=== PATIENT | female | born 1940 | race Caucasian/White ===

== ENCOUNTER 2018-10-04 09:54 | Emergency (ER) | payer OTHER, MEDICARE ==
[2018-10-04 10:05] VITALS: BMI 38.7
--- NOTE | 2018-10-04 10:06 | PDOC ---
History of Present Illness <[place] - Last Filed: 10/04/18 12:21> - General History Source: Patient - History of Present Illness Initial Comments: 10/04/18 10:26 The patient is a 78 year old female with a PMH of HTN, A.Fib, on Eliquis, PE, DVT, COPD, hypothyroidism, anxiety that presented to ED today complaining of back pain for a week. She states that she probably twisted her back or lifted something heavy and started experiencing right lower back pain with movement. According to her she lifted over 20 lbs turkey. Her pain is relieved by lying flat and minimally with Tylenol and heating pad. The patient also is complaining of wound on right timmons that s present for several weeks. She have vascular surgery in left leg by Dr Briscoe and was told to apply steroids on the skin. The patient states that her wound is very painful, stinging pain and she applies peroxide and dressing without noticing any improvement. She doesn't have numbness, weakness, fever, chills, dizziness. Timing/Duration: 1 week <Ruth Talbert - Last Filed: 10/04/18 12:39> - General Chief Complaint: Pain Stated Complaint: WOUND,BACK PAIN Time Seen by Provider: 10/04/18 10:05 Past History <[place] - Last Filed: 10/04/18 12:21> - Past Medical History Anemia: No Asthma: No Cancer: No Cardiac Disorders: Yes ("extra beats") CVA: No COPD: No CHF: No Dementia: No Diabetes: No GI Disorders: No Disorders: Yes (inc) HTN: Yes Hypercholesterolemia: Yes Liver Disease: No Seizures: No Thyroid Disease: No - Surgical History Cardiac Surgery: No (CAROTID ARTERY) Cholecystectomy: Yes Lung Surgery: No Orthopedic Surgery: Yes (may arthroscopy; foot sx) - Suicide/Smoking/Psychosocial Hx Smoking History: Never smoked Have you smoked in the past 12 months: No Hx Alcohol Use: No Drug/Substance Use Hx: No Substance Use Type: None Hx Substance Use Treatment: No <Ruth Talbert - Last Filed: 10/04/18 12:39> - Past Medical History Allergies/Adverse Reactions: Allergies Allergy/AdvReac Type Severity Reaction Status Date / Time codeine [Codeine] Allergy Intermediate nausea Verified 10/04/18 09:56 propoxyphene napsylate Allergy Intermediate nausea Verified 10/04/18 09:56 [From Carolinet-N 100] Sulfa (Sulfonamide Allergy Intermediate rash itch Verified 10/04/18 09:56 Antibiotics) [Sulfa(Sulfonamide Antibiotics)] Home Medications: Ambulatory Orders Atorvastatin Ca [Lipitor] 10 mg PO HS 04/11/15 Calcium Carbonate/Vitamin D3 [Calcium 600-Vit D3 800 Tablet] 600 mg PO DAILY 12/25 Cholecalciferol (Vitamin D3) [Vitamin D3] 2,000 unit PO DAILY 04/11/15 Levothyroxine [Synthroid -] 50 mcg PO DAILY 04/11/15 Guar Gum [Benefiber] 1 each PO BID #0 packet 06/14/15 Biotin 5,000 mg PO DAILY 10/20/16 Glucosamine-Chondr Plus Sftgel 1,500 mg PO DAILY 10/20/16 Ubidecarenone [Co Q-10] 200 mg PO DAILY 10/20/16 Acetaminophen [Tylenol .Regular Strength -] 650 mg PO Q4H PRN #0 tablet Apixaban [Eliquis -] 5 mg PO BID 30 Days tablet 10/23/16 Valsartan [Diovan] 160 mg PO DAILY #30 tablet 10/23/16 Cephalexin [Keflex] 500 mg PO QID #19 capsule 10/04/18 Hydrochlorothiazide [Hctz -] 25 mg PO DAILY 10/04/18 Metoprolol Succinate [Toprol XL -] 50 mg PO AM 10/04/18 Metoprolol Succinate [Toprol Xl -] 100 mg PO HS 10/04/18 Nifedipine ER [Procardia Xl -] 30 mg PO DAILY 10/04/18 Tramadol HCl 50 mg PO BID PRN #6 tablet MDD 2 tabs 10/04/18 Review of Systems - Review of Systems Able to Perform ROS?: Yes Is the patient limited Lithuanian proficient: Yes Constitutional: Yes: See HPI. No: Symptoms Reported HEENTM: No: Symptoms Reported Respiratory: No: Symptoms reported Cardiac (ROS): No: Symptoms Reported ABD/GI: No: Symptoms Reported : No: Symptoms Reported Musculoskeletal: Yes: See HPI, Back Pain, Muscle Pain Integumentary: No: Symptoms Reported Neurological: No: Symptoms reported, Numbness, Paresthesia, Weakness, Dizziness <Ruth Talbert - Last Filed: 10/04/18 12:39> *Physical Exam - Vital Signs Last Vital Signs Temp Pulse Resp BP Pulse Ox 98.1 F 92 H 18 145/58 L 98 10/04/18 10:04 10/04/18 10:04 10/04/18 10:04 10/04/18 10:04 10/04/18 10:04 <[place] - Last Filed: 10/04/18 12:21> - Vital Signs Last Vital Signs Temp Pulse Resp BP Pulse Ox 98.1 F 92 H 18 145/58 L 98 10/04/18 10:04 10/04/18 10:04 10/04/18 10:04 10/04/18 10:04 10/04/18 10:04 - Physical Exam Musculoskeletal: positive: Muscle Spasm (on right side of the back) Extremity: positive: Normal Capillary Refill, Tender (tender to palpation in LLLE), Erythema (RLE around her wound), Other (1 cm open wound in LLE, anterior timmons). negative: Swelling <Ruth Talbert - Last Filed: 10/04/18 12:39> ED Treatment Course - LABORATORY CBC & Chemistry Diagram: 10/04/18 10:49 10/04/18 10:49 - ADDITIONAL ORDERS Additional order review: Laboratory Results 10/04/18 10/04/18 11:30 10:49 Sodium 144 Potassium 4.3 Chloride 107 Carbon Dioxide 24 Anion Gap 13 BUN 20 H Creatinine 0.9 Creat Clearance w eGFR > 60 Random Glucose 90 Calcium 9.1 Total Bilirubin 0.5 AST 23 ALT 36 Alkaline Phosphatase 95 Total Protein 7.2 Albumin 3.6 Urine Color Yellow Urine Appearance Clear Urine pH 5.0 Ur Specific [place] 1.023 Urine Protein Negative Urine Glucose (UA) Negative Urine Ketones Negative Urine Blood Negative Urine Nitrite Negative Urine Bilirubin Negative Urine Urobilinogen Negative Ur Leukocyte Esterase Negative 10/04/18 10:49 RBC 3.49 L MCV 99.4 H MCHC 35.4 RDW 15.1 MPV 6.9 L Neutrophils % 43.8 Lymphocytes % 47.9 H D Monocytes % 6.6 Eosinophils % 1.2 Basophils % 0.5 - Medications Given in the ED: ED Medications Discontinued Medications Generic Name Dose Route Start Last Admin Trade Name Barb PRN Reason Stop Dose Admin Acetaminophen 1,000 mg 10/04/18 10:34 10/04/18 11:00 Ofirmev Injection - IVPB 10/04/18 10:35 1,000 mg ONCE ONE Administration Tramadol HCl 50 mg 10/04/18 11:34 10/04/18 11:57 Ultram - PO 10/04/18 11:35 50 mg ONCE ONE Administration <[place] - Last Filed: 10/04/18 12:21> - LABORATORY CBC & Chemistry Diagram: 10/04/18 10:49 10/04/18 10:49 <Ruth Talbert - Last Filed: 10/04/18 12:39> Medical Decision Making - Medical Decision Making 10/04/18 10:49 The patient presented with lower back pain that is probably muscle strain after lifting heavy objects. We recommend pain medications ie Tylenol, no imaging needed. She also presented with wound in LLE will get CBC, CMP. The wound is open, not draining fluid, erythema around it. She has history of venous insuff., s/p surgery in LLE. We are going to call Dr Briscoe. 10/04/18 12:34 Vascular surgeon- Dr Briscoe called back. Recommendation to add ESR/CRP to labs and follow up as outpatient next week. The patient was also given prescription for Keflex and wound dressing instructions. DC home. <Ruth Talbert - Last Filed: 10/04/18 12:39> *DC/Admit/Observation/Transfer - Discharge Dispostion Decision to Admit order: No <[place] - Last Filed: 10/04/18 12:21> <Ruth Talbert - Last Filed: 10/04/18 12:39> Diagnosis at time of Disposition: Cellulitis, Leg pain, left, Back pain - Prescriptions Prescriptions: Cephalexin [Keflex] 500 mg PO QID #19 capsule Tramadol HCl 50 mg PO BID PRN #6 tablet MDD 2 tabs PRN Reason: Pain - Referrals Referrals: Surinder Gonzales MD [Primary Care Provider] - Jose Manuel Briscoe MD [Staff Physician] - - Patient Instructions Printed Discharge Instructions: DI for Cellulitis -- Adult Additional Instructions: As discussed, call Dr. Briscoe's office tomorrow to push up your appointment to this week. Inform the office staff that Dr. Briscoe would like you seen this week. Take the antibiotic as prescribed. Apply bacitracin to the wound twice a day and dress with Telfa (provided in the ED) Take tylenol as needed for pain. Do not take more than 4 grams per day. If your pain is not well controlled with tylenol, you may take tramadol. This medication can make your drowsy or dizzy, so take only at night and do not drive a car while taking it. Return to the emergency department if you have any new, worsening, or concerning symptoms such as worsening pain, redness, or fevers. - Post Discharge Activity
--- NOTE | 2018-10-04 10:29 | PDOC ---
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 The patient reports noticing a 1 cm wound on the L timmons 1.5 weeks ago. Denies trauma or injury to the area. This morning, the wound was very painful prompting her to come to the ED. The patient states she rinsed the wound with peroxide, betadine and applied a bandage this morning. The patient denies any recent fevers or chills. Denies any erythema or streaking. Has no hx DM. The patient states she follows with Dr Briscoe but her appointment 1 week ago to evaluate the wound was cancelled. With regards to the back pain, she denies any recent injuries or trauma. However, patient reports lifting a 23 lb turkey 1 week ago at the supermarket which triggered the pain. The patient states the right lower back pain is worsened with movement and alleviated while laying flat. The patient states she took Tylenol for the back pain with minimal relief. The patient denies chest pain, shortness of breath, headache and dizziness. Denies nausea, vomit, diarrhea and constipation. Denies dysuria, frequency, urgency and hematuria. Allergies: codeine, propoxyphene napsylate, sulfa (sulfonamide antibiotics) PCP: Dr Gonzales - Physicial Exam PE: 10/04/18 11:22 GENERAL: Awake, alert, and fully oriented, in no acute distress HEAD: No signs of trauma EYES: EOMI, Sclera anicteric, conjunctiva clear ENT: Oropharynx clear without exudates. Moist mucosa NECK: Normal ROM, supple, no lymphadenopathy, JVD, or masses LUNGS: Breath sounds equal, clear to auscultation bilaterally. No wheezes, and no crackles HEART: irregularly irregular, normal S1 and S2, no murmurs, rubs or gallops ABDOMEN: Soft, nontender, normoactive bowel sounds. No guarding, no rebound. No masses EXTREMITIES: Normal range of motion, L distal medial timmons with 1cm punched out ulcer with surrounding warmth, erythema, and ttp half way up the timmons. 2+ DP and TP pulse in L foot. No calf edema or ttp. RLE with no ttp, edema, redness or warmth. NEUROLOGICAL: Normal speech, cranial nerves intact, equal strength and sensation b/l SKIN: Warm, Dry, normal turgor, no rashes or lesions noted. - Medical Decision Making 10/04/18 11:00 78yo F presents to the ED with painful LLE ulcer with surrounding erythema, warmth, and ttp. No crepitus. Pt is not diabetic but reports she has venous insufficiency. Distal L foot warm, well perfused with palpable pulses. Ulcer likely due to venous insufficiency with cellulitis. Unlikely DVT as pt is on eliquis for AF and hx PE/DVT and pt has no calf pain or asymmetric edema. Labs with no leukocytosis. Call placed to Dr. Briscoe, awaiting call back. Plan to treat with Keflex, IV tylenol for ulcer and back pain and reassess 10/04/18 12:16 Remaining labs wnl IV tylenol was not controlling pain, tramadol given which provided some relief. Pt has codeine allergy, but states her reaction is nausea. With regards to cellulitis, will prescribe Keflex Case discussed with Dr. Briscoe, agrees with our plan for Keflex, requested ESR/CRP for him to f/u on out pt He would like to see her in office this wk (pt has appt 10/16, but he states she can call office and tell them he would like her seen this week) Plan discussed with pt Remains clinically well appearing Requests DC home I discussed the physical exam findings, ancillary test results and final diagnoses with the patient. I answered all of the patient's questions. The patient was satisfied with the care received and felt comfortable with the discharge plan and treatment plan. The patient will call their primary care physician within 24 hours to arrange follow-up and will return to the Emergency Department with any new, persistent or worsening symptoms.
[2018-10-04] MEDS ORDERED: ACETAMINOPHEN 1000 MG/100 ML VIAL (NON FORMULARY) IVPB ONE (10:34)
[2018-10-04] MEDS ORDERED: ACETAMINOPHEN INJECTION 100 ML IVPB ONE (10:50)
[2018-10-04 11:07] LABS: BASO % 0.5 % (0-2.0); EOS % 1.2 % (0-4.5); HEMATOCRIT 34.7 % (32.4-45.2); HEMOGLOBIN 12.3 GM/dL (10.7-15.3); LYMPH % 47.9 % (8-40); MCH 35.2 pg (25.7-33.7); MCHC 35.4 g/dl (32.0-36.0); MEAN CELL VOLUME 99.4 fl (80-96); MEAN PLT VOLUME 6.9 fl (7.5-11.1); MONO % 6.6 % (3.8-10.2); NEUT % 43.8 % (42.8-82.8); PLATELET COUNT 397 K/MM3 (134-434); RBC 3.49 M/mm3 (3.60-5.2); RDW 15.1 % (11.6-15.6); WHITE BLOOD COUNT 6.3 K/mm3 (4.0-10.0)
[2018-10-04] MEDS ORDERED: traMADol HCL 50 MG TABLET PO ONE (11:34)
[2018-10-04] MEDS ORDERED: traMADol HCL 50 MG TABLET ONE (11:53)
[2018-10-04 11:56] LABS: URINE APPEARANCE CLEAR; URINE BILIRUBIN NEGATIVE (<2.0 mg/dL); URINE COLOR YELLOW; URINE GLUCOSE (UA) NEGATIVE (NEGATIVE); URINE KETONE NEGATIVE (NEGATIVE); URINE LEUK ESTERASE NEGATIVE (NEGATIVE); URINE NITRITE NEGATIVE (NEGATIVE); URINE PROTEIN NEGATIVE (NEGATIVE); URINE UROBILINOGEN NEGATIVE mg/dL (0.2-1.0)
[2018-10-04 12:12] LABS: ALBUMIN 3.6 g/dl (3.4-5.0); ALK PHOS 95 U/L (45-117); ANION GAP 13 MMOL/L (8-16); BILIRUBIN,TOTAL 0.5 mg/dL (0.2-1); BLOOD UREA NITROGEN 20 mg/dL (7-18); CALCIUM 9.1 mg/dL (8.5-10.1); CHLORIDE 107 mmol/L (98-107); CO2 24 mmol/L (21-32); CREATININE 0.9 mg/dL (0.55-1.3); GLUCOSE,RANDOM 90 mg/dL (74-106); POTASSIUM 4.3 mmol/L (3.5-5.1); SGOT/AST 23 U/L (15-37); SGPT/ALT 36 U/L (13-61); SODIUM 144 mmol/L (136-145); TOT PROT 7.2 g/dl (6.4-8.2)
[2018-10-04] MEDS ORDERED: CEPHALEXIN MONOHYDRATE 500 MG CAPSULE (UD) PO ONE (12:24)
[2018-10-04] MEDS ORDERED: CEPHALEXIN MONOHYDRATE 500 MG CAPSULE (UD) ONE (12:33)
[2018-10-04 12:50] VITALS: BP 149/55; PULSE 59; TEMP 97.8
[2018-10-04] MEDS ORDERED: BACITRACIN 0.9 GM PACKET ONE (12:54)
== END 2018-10-04 13:01 | disposition home or self-care (01) ==
LOC: JER 09:54
PROC: 3E033NZ Introduction of Analgesics, Hypnotics, Sedatives into Peripheral Vein, Percutaneous Approach (ICD-10-PCS; principal; 2018-10-04)
DX: M62.830 Muscle spasm of back (principal); S81.802A Unspecified open wound, left lower leg, initial encounter; L03.116 Cellulitis of left lower limb; X58.XXXA Exposure to other specified factors, initial encounter; Y93.89 Activity, other specified; Y92.89 Other specified places as the place of occurrence of the external cause; Y99.8 Other external cause status; I10 Essential (primary) hypertension; I48.91 Unspecified atrial fibrillation; Z79.01 Long term (current) use of anticoagulants; J44.9 Chronic obstructive pulmonary disease, unspecified; E03.9 Hypothyroidism, unspecified; F41.9 Anxiety disorder, unspecified; Z86.718 Personal history of other venous thrombosis and embolism; Z86.711 Personal history of pulmonary embolism
CPT/HCPCS: 36415; 80053; 81003; 85025; 85651; 86140; 87077; 87086; 96374; 99282-25; J0131

== ENCOUNTER 2019-02-03 09:26 | Day surgery (SDC) | payer OTHER, MEDICARE ==
[2019-01-29 14:27] VITALS: BMI 38.0
[2019-02-03] MEDS ORDERED: PROPOFOL 20 ML ONE ×2 (09:46)
[2019-02-03] MEDS ORDERED: LIDOCAINE HCL/PF 2% SDV 5ML VIAL ONE (09:46)
[2019-02-03 10:06] VITALS: TEMP 97.6
[2019-02-03 14:34] VITALS: BP 121/50; PULSE 60
== END 2019-02-03 12:20 | disposition home or self-care (01) ==
LOC: FASU-ENDO 09:26
PROVIDERS: ATTEND Internal Medicine Gastroenterology
PROC: 0DJD8ZZ Inspection of Lower Intestinal Tract, Via Natural or Artificial Opening Endoscopic (ICD-10-PCS; principal; 2019-02-03 10:50)
DX: Z86.010 Personal history of colon polyps (principal); K64.1 Second degree hemorrhoids; K57.30 Diverticulosis of large intestine without perforation or abscess without bleeding

== ENCOUNTER 2019-06-21 04:54 | Inpatient (IN) | payer OTHER, MEDICARE ==
[2019-06-03 13:19] VITALS: BMI 39.1
[2019-06-21] MEDS ORDERED: HEPARIN NA (PORCINE) 5,000 UNITS/ML 1ML VIAL ONE ×2 (09:10→11:27)
[2019-06-21] MEDS ORDERED: LIDOCAINE HCL 0.5%, 5 MG/ML (50mL SDVIAL) ONE (09:41)
[2019-06-21] MEDS ORDERED: PROPOFOL 20 ML ONE (09:50)
[2019-06-21] MEDS ORDERED: ROCURONIUM BROMIDE 50 MG/5 ML SYRINGE ONE (09:50)
[2019-06-21] MEDS ORDERED: MIDAZOLAM HCL 2 MG/2 ML SINGLE DOSE VIAL ONE (10:52)
--- NOTE | 2019-06-21 10:52 | HP ---
Admitting History and Physical - Admission History of Present Illness: 79 year old woman with history of right carotid endarterectomy 10 years ago has been followed with yearly Duplex. Recent study shows increased left ICA stenosis to > 80%. She has no prior history of stroke, TIA or TMB. History Source: Patient, Medical Record Limitations to Obtaining History: No Limitations - Past Medical History Cardiovascular: Yes: HTN, Hyperlipdemia Psych: Yes: Anxiety Musculoskeletal: Yes: Chronic low back pain Rheumatology: Yes: Other (osteoarthritis) Endocrine: Yes: Hypothyroidism Dermatology: Yes: Other (Venous stasis both legs) - Past Surgical History Past Surgical History: Yes: Arthrosocopy, Carotid Endarterectomy, Cholecystectomy, Hysterectomy - Advance Directives Advance Directives: Yes: Health Care Proxy - Smoking History Smoking history: Never smoked Have you smoked in the past 12 months: No - Alcohol/Substance Use Hx Alcohol Use: Yes ((rarely)) - Social History ADL: Independent History of Recent Travel: No Home Medications - Allergies Allergies/Adverse Reactions: Allergies Allergy/AdvReac Type Severity Reaction Status Date / Time codeine [Codeine] Allergy Intermediate nausea Verified 06/03/19 13:19 propoxyphene napsylate Allergy Intermediate nausea Verified 06/03/19 13:19 [From Darvocet-N 100] Sulfa (Sulfonamide Allergy Intermediate rash itch Verified 06/03/19 13:19 Antibiotics) [Sulfa(Sulfonamide Antibiotics)] - Home Medications Home Medications: Ambulatory Orders Calcium Carbonate/Vitamin D3 [Calcium 600-Vit D3 800 Tablet] 600 mg PO DAILY 12/25 Cholecalciferol (Vitamin D3) [Vitamin D3] 2,000 unit PO DAILY 04/11/15 Levothyroxine [Synthroid -] 50 mcg PO DAILY 04/11/15 Biotin 5,000 mg PO DAILY 10/20/16 Glucosamine-Chondr Plus Sftgel 1,500 mg PO DAILY 10/20/16 Ubidecarenone [Co Q-10] 200 mg PO DAILY 10/20/16 Apixaban [Eliquis -] 5 mg PO BID 30 Days tablet 10/23/16 Valsartan [Diovan] 160 mg PO DAILY #30 tablet 10/23/16 Metoprolol Succinate [Toprol XL -] 100 mg PO AM 10/04/18 Metoprolol Succinate [Toprol Xl -] 50 mg PO HS 10/04/18 Nifedipine ER [Procardia Xl -] 30 mg PO DAILY 10/04/18 Furosemide 2 tab PO UTDICT 06/03/19 Simvastatin 20 mg PO HS 06/03/19 Family Disease History - Family Disease History Family Disease History: Other: Grandparent, Father (old age), Mother ( cellulitis and phlebitis post ) Physical Examination Vital Signs: Vital Signs Temperature 98.1 F 06/21/19 08:39 Pulse Rate 60 06/21/19 08:39 Respiratory Rate 18 06/21/19 08:39 Blood Pressure 166/62 06/21/19 08:39 O2 Sat by Pulse Oximetry (%) 98 06/21/19 08:55 Constitutional: Yes: Obese Eyes: Yes: WNL, EOM Intact HENT: Yes: WNL Neck: Yes: Supple Cardiovascular: Yes: Pulse Irregular Respiratory: Yes: CTA Bilaterally Gastrointestinal: Yes: Soft Extremities: Yes: Other (Stasis dermatitis both calves) Edema: Yes Edema: LLE: 2+, RLE: 2+ Peripheral Pulses WNL: Yes Neurological: Yes: Alert, Oriented ...Motor Strength: WNL Problem List - Problems (1) Carotid stenosis, left Assessment/Plan: Worsening stenosis of left ICA, now severe. Plan left carotid endarterectomy Code(s): I65.22 - OCCLUSION AND STENOSIS OF LEFT CAROTID ARTERY
[2019-06-21] MEDS ORDERED: ceFAZolin SODIUM 1 GM VIAL IVPB ONE (11:20)
[2019-06-21] MEDS ORDERED: NEOSTIGMINE METHYLSULFATE 0.5 MG/ML - 10 ML MDV ONE (12:47)
[2019-06-21] MEDS ORDERED: GLYCOPYRROLATE 0.2 MG/1 ML VIAL ONE (12:47)
[2019-06-21] MEDS ORDERED: POVIDONE-IODINE OINTMENT 10% - 28.4 GM TUBE ONE (12:50)
--- NOTE | 2019-06-21 13:12 | OP ---
Operative Note - Note: Operative Date: 06/21/19 Pre-Operative Diagnosis: Left carotid stenosis Operation: Left carotid endarterectomy Findings: Calcified plaque of common and internal carotid with severe stenosis Implants: Thin Dacron collagen coated patch Post-Operative Diagnosis: Same as Pre-op Surgeon: Jose Manuel Briscoe [employer] Attendant: Julio Beavers Anesthesiologist/AUTOMATIC PRESSER: Renato Jimenez Anesthesia: General Estimated Blood Loss (mls): 100
[2019-06-21] MEDS ORDERED: HYDROmorphone HCl 2 MG/ML VIAL IVPB PRN (13:16)
[2019-06-21] MEDS ORDERED: ACETAMINOPHEN 325 MG TABLET (FP) PO PRN (13:20)
[2019-06-21] MEDS ORDERED: oxyCODONE HCL 5 MG TABLET PO PRN (13:20)
[2019-06-21] MEDS ORDERED: ONDANSETRON 4 MG/2 ML VIAL IVPUSH PRN (13:33)
[2019-06-21] MEDS ORDERED: PROMETHAZINE HCL 25 MG/1 ML VIAL IVPB PRN (13:33)
--- NOTE | 2019-06-21 13:35 | SURG ---
Surgery [facility] [employer] Note [employer]: Julio Beavers PA-C Date of Service: 06/21/19 Diagnosis: Left carotid stenosis Procedure: Left carotid endarterectomy I was present for the entirety of the operative procedure. For further detail, please refer to operative report. Visit type - Case Type Case Type: Scheduled - New patient This patient is new to me today: Yes Date on this admission: 06/21/19
[2019-06-21] MEDS ORDERED: ONDANSETRON 4 MG/2 ML VIAL ONE (13:37)
--- NOTE | 2019-06-21 13:40 | CONSULT ---
Consultation: REQUESTING PROVIDER: Dr. Briscoe CONSULT REQUEST: We have been asked to medically evaluate this patient for carotid endarterectomy HISTORY OF PRESENT ILLNESS: 79 year old female with a history of hypertension, paroxysmal atrial fibrillation, hypercholesterolemia, carotid artery disease, s/p R sided carotid endarterectomy (10 years ago), hypothyroidism, pulmonary hypertension, and history of deep vein thrombosis is seen in the ICU s/p L sided carotid endarterectomy for 80% stenosis of L carotid artery. Patient is seen post- operatively and complains of nausea. Denies shortness of breath, chest pain, abdominal pain fevers or chills. Allergies: Codeine, sulfa Surgeries: R eye surgery for macular detachment, R (10 years ago) and now L carotid endarterectomy, hysterectomy, cholecystectomy, arthroscopic surgery both knees, R cataract extraction/intraocular lens implantation, bunionectomy bilaterally Smoking: never smoker Alcohol: rare alcohol use Family Hx: 4 healthy sons, father at 90 had CAD, HTN, mother at 88 of CVA and had CAD Social Hx: REVIEW OF SYSTEMS: CONSTITUTIONAL: Absent: fever, chills, diaphoresis, generalized weakness, malaise, loss of appetite, weight change HEENT: Absent: rhinorrhea, nasal congestion, throat pain, throat swelling, difficulty swallowing, mouth swelling, ear pain, eye pain, visual changes CARDIOVASCULAR: Absent: chest pain, syncope, palpitations, irregular heart rate, lightheadedness , peripheral edema RESPIRATORY: Absent: cough, shortness of breath, dyspnea with exertion, orthopnea, wheezing, stridor, hemoptysis GASTROINTESTINAL: nausea, vomiting Absent: abdominal pain, abdominal distension, diarrhea, constipation, melena, hematochezia GENITOURINARY: Absent: dysuria, frequency, urgency, hesitancy, hematuria, flank pain, genital pain MUSCULOSKELETAL: Absent: myalgia, arthralgia, joint swelling, back pain, neck pain SKIN: Absent: rash, itching, pallor HEMATOLOGIC/IMMUNOLOGIC: Absent: easy bleeding, easy bruising, lymphadenopathy, frequent infections ENDOCRINE: Absent: unexplained weight gain, unexplained weight loss, heat intolerance, cold intolerance NEUROLOGIC: Absent: headache, focal weakness or paresthesias, dizziness, unsteady gait, seizure, mental status changes, bladder or bowel incontinence PSYCHIATRIC: Absent: anxiety, depression, suicidal or homicidal ideation, hallucinations. PHYSICAL EXAMINATION Vital Signs - 24 hr 06/21/19 06/21/19 08:39 08:55 Temperature 98.1 F Pulse Rate 60 Respiratory 18 Rate Blood Pressure 166/62 O2 Sat by Pulse 98 Oximetry (%) GENERAL: A&Ox3, mild distress/nausea/dry heaves EYES: PERRLA, EOMI ENT: Dry mucus membranes NECK: Non-bleeding dressing noted over L carotid artery, no obvious masses or hematomas. Pulses palpated LUNGS: CTA, no wheezes HEART: RRR, no murmurs ABDOMEN: Soft, nontender, BS diminished MUSCULOSKELETAL: No CVA Tenderness EXTREMITIES: 2+ pulses, no edema. NEUROLOGICAL: Cranial nerves II-XII intact. No focal motor or sensory deficits. Gait not observed. Laboratory Results - last 24 hr 06/21/19 08:10 Blood Type AB NEGATIVE Antibody Screen Negative Crossmatch See Detail Active Medications Generic Name Dose Route Start Last Admin Trade Name Freq PRN Reason Stop Dose Admin Acetaminophen 325 mg 06/21/19 13:20 Tylenol - PO 06/24/19 13:19 Q4H PRN PAIN 1-5 Atorvastatin Calcium 10 mg 06/21/19 22:00 Lipitor - PO HS [facility] Enoxaparin Sodium 40 mg 06/22/19 10:00 Lovenox - SQ DAILY VINCE Fentanyl 25 mcg 06/21/19 13:33 Sublimaze Injection - IVPUSH 06/22/19 13:32 [id number] PRN PAIN-PACU ORDER X 4 DOSES ONLY Hydromorphone HCl 2 mg 06/21/19 13:16 Dilaudid Vial - IVPB Q3H PRN PAIN LEVEL 6-10 Cefazolin Sodium 1 gm/ 50 mls @ 100 mls/hr 06/21/19 18:00 Dextrose IVPB 06/22/19 02:29 Q8H-IV VINCE Lactated Ringer's 1,000 mls @ 75 mls/hr 06/21/19 13:45 Lactated Ringers Solution IV ASDIR VINCE Levothyroxine Sodium 50 mcg 06/22/19 07:00 Synthroid - PO 0700 VINCE Metoprolol Succinate 100 mg 06/22/19 07:00 Toprol Xl - PO AM VINCE Metoprolol Succinate 50 mg 06/21/19 22:00 Toprol Xl - PO HS VINCE Nifedipine 30 mg 06/22/19 10:00 Procardia Xl - PO DAILY VINCE Ondansetron HCl 4 mg 06/21/19 13:33 Zofran Injection IVPUSH 06/22/19 13:32 Q6H PRN NAUSEA AND/OR VOMITING Oxycodone HCl 5 mg 06/21/19 13:20 Roxicodone - PO Q4H PRN PAIN 1-5 Promethazine HCl 12.5 mg 06/21/19 13:33 Phenergan Injection - IVPB 06/22/19 13:32 Q6H PRN NAUSEA-FOR RESCUE AFTER 15 MIN Valsartan 160 mg 06/22/19 10:00 Diovan - PO DAILY VINCE ASSESSMENT/PLAN: 79 year old female with a history of hypertension, paroxysmal atrial fibrillation, hypercholesterolemia, carotid artery disease, s/p R sided carotid endarterectomy (10 years ago), hypothyroidism, pulmonary hypertension, and history of deep vein thrombosis is seen in the ICU s/p L sided carotid endarterectomy for 80% stenosis of L carotid artery #Carotid Stenosis on L #Hypertension #PAD #HLD #Atrial Fibrillation Neurological -currently A&O without any neurological deficits -due to nature of carotid endarterectomy, would want q1h neurochecks for any change or decline in neurologic function Cardiovascular -Carotid Stenosis: L sided, s/p carotid endarterectomy -maintain systolic BP between 100-150 per guidelines -monitor for bleeding -EKG now -pain control -phenergan/zofran for nausea -can restart diet per surgery -Hypertension, continue home medications in the morning -continue statin -for paroxysmal afib, was on eliquis at home - per surgery recommendations will start lovenox 40 in AM, likely bridge back to eliquis within 24-48 hours, will touch base with surgery Pulmonary -saturating @ 100% on NRB after surgery -can downgrade to nasal cannula and observe Gastrointestinal -currently nauseous and dry-heaving, will give antiemetic and observe -restart CLD as tolerated Renal -no active issues Endocrine -hypothyroidism, continue synthroid FEN -LR @ 75cc/hr -repeat labs in AM Prophylaxis -held AC for now -restart lovenox in AM Disposition -ICU monitoring, likely downgrade in 24 hours Visit type - Emergency Visit Emergency Visit: No - New Patient This patient is new to me today: Yes Date on this admission: 06/21/19 - Critical Care Critical Care patient: Yes Total Critical Care Time (in minutes): 40 Critical Care Statement: The care of this patient involved high complexity decision making to prevent further life threatening deterioration of the patient 's condition and/or to evaluate & treat vital organ system(s) failure or risk of failure. ATTENDING PHYSICIAN STATEMENT I saw and evaluated the patient. I reviewed the resident's note and discussed the case with the resident. I agree with the resident's findings and plan as documented. SUBJECTIVE: OBJECTIVE: ASSESSMENT AND PLAN:
[2019-06-21] MEDS ORDERED: LACTATED RINGERS SOLUTION 1,000 ML IV SCH (13:45)
--- NOTE | 2019-06-21 16:39 | CON.CARD ---
Consult Consult Specialty:: Cardiology Referred by:: Dr. Briscoe - History of Present Illness History of Present Illness: CC: Post-operative cardiology follow-up. Mrs. Montoya is a 79-year-old female with history of hypertension, hypertensive cardiovascular disease, paroxysmal atrial fibrillation, hypercholesterolemia, carotid artery disease, status post right carotid endarterectomy, hypothyroidism , history of pulmonary hypertension and history of deep vein thrombosis and venous insufficiency related to varicose veins. Patient underwent left carotid endarterectomy and was seen in the CCU and was complaining of nausea and still had residual effects of anesthesia. Hemodynamically seemed stable. No chest pains were reported. Active Medications Acetaminophen (Tylenol -) 325 mg PO Q4H PRN PRN Reason: PAIN 1-5 Stop: 06/24/19 13:19 Atorvastatin Calcium (Lipitor -) 10 mg PO HS VINCE Enoxaparin Sodium (Lovenox -) 40 mg SQ DAILY [facility] Fentanyl (Sublimaze Injection -) 25 mcg IVPUSH [id number] PRN PRN Reason: PAIN-PACU ORDER X 4 DOSES ONLY Stop: 06/22/19 13:32 Hydromorphone HCl (Dilaudid Vial -) 2 mg IVPB Q3H PRN PRN Reason: PAIN LEVEL 6-10 Cefazolin Sodium 1 gm/ (Dextrose) 50 mls @ 100 mls/hr IVPB Q8H-IV VINCE Stop: 06/22/19 02:29 Lactated Ringer's (Lactated Ringers Solution) 1,000 mls @ 75 mls/hr IV ASDIR VINCE Last Admin: 06/21/19 15:14 Dose: 75 mls/hr Levothyroxine Sodium (Synthroid -) 50 mcg PO 0700 VINCE Metoprolol Succinate (Toprol Xl -) 100 mg PO AM VINCE Metoprolol Succinate (Toprol Xl -) 50 mg PO HS [facility] Nifedipine (Procardia Xl -) 30 mg PO DAILY [facility]INCE Ondansetron HCl (Zofran Injection) 4 mg IVPUSH Q6H PRN PRN Reason: NAUSEA AND/OR VOMITING Stop: 06/22/19 13:32 Last Admin: 06/21/19 13:42 Dose: 4 mg Oxycodone HCl (Roxicodone -) 5 mg PO Q4H PRN PRN Reason: PAIN 1-5 Promethazine HCl (Phenergan Injection -) 12.5 mg IVPB Q6H PRN PRN Reason: NAUSEA-FOR RESCUE AFTER 15 MIN Stop: 06/22/19 13:32 Last Admin: 06/21/19 14:37 Dose: 12.5 mg Valsartan (Diovan -) 160 mg PO DAILY VINCE Allergies: Sulfa. Codeine Propoxyphene napsylate. Physical Examination: 79-year-old female was complaining of nausea still had residual effects of nausea and lightheadedness, in no distress, no pallor, cyanosis, clubbing or jaundice. Last Vital Signs Temp Pulse Resp BP Pulse Ox 97.7 F 56 L 13 132/68 98 06/21/19 14:59 06/21/19 15:45 06/21/19 15:45 06/21/19 15:45 06/21/19 14:59 Neck: Supple, left neck is bandaged. Unable to examine the left carotid because of recent surgery. No right carotid bruit appreciated. No thyromegaly. There is a well-healed right carotid endarterectomy scar. Heart: PMI was in the fifth intercostal space, no heaves or thrills, S1 and S2 were normal, no murmur or gallops were heard. Lungs: Clear on auscultation. Chest: Normal AP diameter, expansion was symmetrical. Abdomen: Obese, soft and nontender. No hepatosplenomegaly or palpable masses were felt. Extremities: No calf tenderness trace right ankle edema. There were stases changes. Femoral pulses were 2+ dorsalis pedis and posterior tibial pulses were 1+. ECG: Not available. LAB DATA: Not available. IMPRESSION: 1. Status post left carotid endarterectomy. 2. Hypertension, hypertensive cardiovascular disease, presently normotensive. 3. Paroxysmal atrial fibrillation, currently in sinus rhythm. 4. Status post right carotid endarterectomy. 5. Hypercholesterolemia. 6. History of pulmonary hypertension. 7. History of bilateral venous insufficiency. 8. Status post DVT. 9. Hypothyroidism, on replacement therapy. RECOMMENDATIONS: 1. ECG. 2. Troponin levels. 3. Resume oral medications as soon as possible. 4. Anticoagulation as soon as possible. 5. Followup CBC and BMP. 6. Patient is being treated for intermittent nausea. Matt Botello MD, FACC - Past Medical History Cardio/Vascular: Yes: HTN, Hyperlipdemia Psych: Yes: Anxiety Musculoskeletal: Yes: Chronic low back pain Rheumatology: Yes: Other (osteoarthritis) Endocrine: Yes: Hypothyroidism Dermatology: Yes: Other (Venous stasis both legs) - Past Surgical History Past Surgical History: Yes: Arthrosocopy, Carotid Endarterectomy, Cholecystectomy, Hysterectomy - Alcohol/Substance Use Hx Alcohol Use: Yes ((rarely)) - Smoking History Smoking history: Never smoked Have you smoked in the past 12 months: No - Social History ADL: Independent History of Recent Travel: No Home Medications - Allergies Allergies/Adverse Reactions: Allergies Allergy/AdvReac Type Severity Reaction Status Date / Time codeine [Codeine] Allergy Intermediate nausea Verified 06/03/19 13:19 propoxyphene napsylate Allergy Intermediate nausea Verified 06/03/19 13:19 [From Darvocet-N 100] Sulfa (Sulfonamide Allergy Intermediate rash itch Verified 06/03/19 13:19 Antibiotics) [Sulfa(Sulfonamide Antibiotics)] - Home Medications Home Medications: Ambulatory Orders Calcium Carbonate/Vitamin D3 [Calcium 600-Vit D3 800 Tablet] 600 mg PO DAILY 12/25 Cholecalciferol (Vitamin D3) [Vitamin D3] 2,000 unit PO DAILY 04/11/15 Levothyroxine [Synthroid -] 50 mcg PO DAILY 04/11/15 Biotin 5,000 mg PO DAILY 10/20/16 Glucosamine-Chondr Plus Sftgel 1,500 mg PO DAILY 10/20/16 Ubidecarenone [Co Q-10] 200 mg PO DAILY 10/20/16 Apixaban [Eliquis -] 5 mg PO BID 30 Days tablet 10/23/16 Valsartan [Diovan] 160 mg PO DAILY #30 tablet 10/23/16 Metoprolol Succinate [Toprol XL -] 100 mg PO AM 10/04/18 Metoprolol Succinate [Toprol Xl -] 50 mg PO HS 10/04/18 Nifedipine ER [Procardia Xl -] 30 mg PO DAILY 10/04/18 Furosemide 2 tab PO UTDICT 06/03/19 Simvastatin 20 mg PO HS 06/03/19 Family Disease History - Family Disease History Family Disease History: Other: Grandparent, Father (old age), Mother ( cellulitis and phlebitis post ) Vital Signs: Vital Signs Temperature 97.7 F 06/21/19 14:59 Pulse Rate 56 L 06/21/19 15:45 Respiratory Rate 13 06/21/19 15:45 Blood Pressure 132/68 06/21/19 15:45 O2 Sat by Pulse Oximetry (%) 98 06/21/19 14:59
[2019-06-21] MEDS ORDERED: ceFAZolin SODIUM 1 GM VIAL ONE (19:19)
[2019-06-21] MEDS ORDERED: DEXTROSE 5%-WATER - 50 ML IVPB ONE (19:20)
[2019-06-21] MEDS: CEFAZOLIN 1 GM in DEXTROSE 5%-WATER - 50 ML IVPB SCH (19:34)
[2019-06-21] MEDS: ATORVASTATIN CA 10 MG TABLET (FP) PO SCH (21:07)
[2019-06-22] MEDS ORDERED: DEXTROSE 5%-WATER - 50 ML IVPB ONE (00:32)
[2019-06-22] MEDS ORDERED: ceFAZolin SODIUM 1 GM VIAL ONE (00:32)
[2019-06-22] MEDS: CEFAZOLIN 1 GM in DEXTROSE 5%-WATER - 50 ML IVPB SCH (01:47)
[2019-06-22] MEDS ORDERED: MAG HYDROX/AL HYDROX/SIMETH 30 ML UNIT-DOSE CUP PO PRN (01:54)
[2019-06-22] MEDS: ACETAMINOPHEN 325 MG TABLET (FP) PO PRN ×2 (02:00→13:53)
[2019-06-22] MEDS: LEVOTHYROXINE NA 50 MCG TABLET (FP) PO SCH (06:11)
[2019-06-22 06:25] LABS: HEMATOCRIT 28.3 % (32.4-45.2); HEMOGLOBIN 9.7 GM/dL (10.7-15.3); MCH 35.8 pg (25.7-33.7); MCHC 34.5 g/dl (32.0-36.0); MEAN CELL VOLUME 103.9 fl (80-96); PLATELET COUNT 314 K/MM3 (134-434); RBC 2.72 M/mm3 (3.60-5.2); RDW 16.3 % (11.6-15.6)
[2019-06-22 07:03] LABS: BLOOD UREA NITROGEN 10.4 mg/dL (7-18); CREATININE 0.7 mg/dL (0.55-1.3)
[2019-06-22 07:04] LABS: ALBUMIN 2.9 g/dl (3.4-5.0); BILIRUBIN,TOTAL 0.5 mg/dL (0.2-1); CALCIUM 8.2 mg/dL (8.5-10.1); POTASSIUM 3.8 mmol/L (3.5-5.1)
[2019-06-22] MEDS ORDERED: PT OWN MED DRAWER 7, Y5N ONE ×2 (07:41→10:03)
[2019-06-22] MEDS: NIFEdipine E.R. 30 MG TABLET (FP) PO SCH (07:54)
--- NOTE | 2019-06-22 08:45 | PN ---
Progress Note (short form) - Note Progress Note: POD 1 No c/o Neck wound clean and dry Neuro exam unchanged Stable course OOB Restart Eliquis. Problem List - Problems (1) Carotid stenosis, left Code(s): I65.22 - OCCLUSION AND STENOSIS OF LEFT CAROTID ARTERY
--- NOTE | 2019-06-22 09:46 | OP ---
DATE OF OPERATION: 06/21/2019 SURGEON: Jose Manuel Briscoe MD RN CHEMICAL DEPENDENCY: ASAD Blackman PROCEDURE: Left carotid endarterectomy. PREOPERATIVE DIAGNOSIS: Left carotid stenosis. POSTOPERATIVE DIAGNOSIS: Left carotid stenosis. ANESTHESIA: General. ANESTHESIOLOGIST: TONIA Rizvi OPERATIVE FINDINGS: There was calcified plaque of the common carotid extending into the internal carotid artery with severe luminal stenosis. OPERATIVE PROCEDURE: Following routine patient identification with site and side verification general anesthesia was induced. The left neck and chest were prepped with ChloraPrep. Timeout was performed. A skin incision was made along the anterior border of the left sternocleidomastoid and carried to the subcutaneous tissue and platysmal layer with cautery. The muscle was retracted laterally. The internal jugular vein was sharply dissected along its anterior border. The side branches were ligated with silk ties and divided. The vein was retracted laterally. The common carotid artery was then mobilized at the base of the incision and secured with umbilical tape. This dissection allowed identification of the carotid bifurcation. The external carotid was mobilized at its origin and secured with the vessel loop. The internal carotid was then exposed distally. Hypoglossal nerve was identified. Crossing vessels were ligated with silk ties and divided and the nerve was allowed to retract superiorly. The internal carotid was then mobilized at a point distal to atherosclerotic disease. The artery was redundant following dissection allowing the plaque to be brought down into the operative field without difficulty. The distal internal carotid was then occluded with the Yasargil clip. The common carotid with the vascular clamp and the external with the vessel loop. An arteriotomy was made in the common carotid artery and extended distally. The origin of the internal was then amputated. An eversion endarterectomy was then performed to remove plaque from the internal carotid artery. Following this, back bleeding from the internal was strongly pulsatile and no shunt was employed. Endarterectomy of the common carotid was then performed to remove plaque and loose meaty fibers. The lumen was flushed with heparin solution. The common carotid artery was then repaired using a thin-walled collagen-coated patch, which was sutured to the arterial nolasco using 6-0 Prolene suture. This restored flow to the external carotid. Prior to completion of the suture line, the artery was allowed to back bleed and flush and the lumen was filled with heparin solution. The suture line was completed and clamps were briefly released to restore flow to the external carotid artery. There was no evidence of significant bleeding from the suture line. The clamps were reapplied, an incision was made on the top of the patch. The internal was then brought down without tension and spatulated. It was anastomosed to the patch using running suture of 6-0 Prolene. Prior to completion of the suture line, the artery was allowed to back bleed and the common was allowed to flush. The suture line was completed. Flow was then restored to the external and then the internal carotid artery. Evaluation with the handheld Doppler revealed good flow in all branches. Bleeding from the suture lines was controlled with Surgicel. When hemostasis was adequate, the wound was irrigated and closed with interrupted suture of 3-0 Vicryl on the platysmal layer and skin ayanna. Sterile dressing was applied and the patient was taken to the recovery room in stable condition. Laz LIU/[id number] MTDMaria Luisa
[2019-06-22] MEDS ORDERED: ENOXAPARIN NA (PORCINE) 40 MG/0.4 ML DISP.SYRIN SQ SCH (10:00)
[2019-06-22] MEDS ORDERED: NIFEdipine E.R. 30 MG TABLET (FP) PO SCH (10:00)
[2019-06-22] MEDS: VALSARTAN 160 MG TABLET (UD) PO SCH (10:35)
[2019-06-22] MEDS: APIXABAN 5 MG TABLET PO SCH ×2 (10:35→21:45)
--- NOTE | 2019-06-22 11:26 | EKG ---
Test Reason : Blood Pressure : / mmHG Vent. Rate : 060 BPM Atrial Rate : 060 BPM P-R Int : 160 ms QRS Dur : 088 ms QT Int : 444 ms P-R-T Axes : 039 029 037 degrees QTc Int : 444 ms NORMAL SINUS RHYTHM NORMAL ECG WHEN COMPARED WITH ECG OF 20-OCT-2016 09:51, NO SIGNIFICANT CHANGE WAS FOUND Confirmed by Lai Dela Cruz MD ([id number]) on 06/22/2019 11:26:02 AM Referred By: CARTER ROOT Confirmed By:Lai Dela Cruz MD
--- NOTE | 2019-06-22 13:08 | PN ---
Progress Note (short form) - Note Progress Note: Mrs. Montoya is a 79-year-old female with history of hypertension, hypertensive cardiovascular disease, paroxysmal atrial fibrillation, hypercholesterolemia, carotid artery disease, status post right carotid endarterectomy, hypothyroidism , history of pulmonary hypertension and history of deep vein thrombosis and venous insufficiency related to varicose veins. Patient is OOB, no further nausea. No SOB or chest pain or discomfort. Active Medications Acetaminophen (Tylenol -) 650 mg PO Q4H PRN PRN Reason: MODERATE PAIN Last Admin: 06/22/19 02:00 Dose: 650 mg Al Hydroxide/Mg Hydroxide (Mylanta Oral Suspension -) 30 ml PO Q6H PRN PRN Reason: DYSPEPSIA Last Admin: 06/22/19 02:26 Dose: 30 ml Apixaban (Eliquis -) 5 mg PO BID [facility] Last Admin: 06/22/19 10:35 Dose: 5 mg Atorvastatin Calcium (Lipitor -) 10 mg PO HS [facility] Last Admin: 06/21/19 21:07 Dose: 10 mg Levothyroxine Sodium (Synthroid -) 50 mcg PO 0700 [facility] Last Admin: 06/22/19 06:11 Dose: 50 mcg Metoprolol Succinate (Toprol Xl -) 100 mg PO AM [facility] Last Admin: 06/22/19 06:11 Dose: 100 mg Metoprolol Succinate (Toprol Xl -) 50 mg PO HS [facility] Last Admin: 06/21/19 21:07 Dose: 50 mg Nifedipine (Procardia Xl -) 30 mg PO DAILY [facility] Last Admin: 06/22/19 07:54 Dose: 30 mg Ondansetron HCl (Zofran Injection) 4 mg IVPUSH Q6H PRN PRN Reason: NAUSEA AND/OR VOMITING Stop: 06/22/19 13:32 Last Admin: 06/21/19 13:42 Dose: 4 mg Promethazine HCl (Phenergan Injection -) 12.5 mg IVPB Q6H PRN PRN Reason: NAUSEA-FOR RESCUE AFTER 15 MIN Stop: 06/22/19 13:32 Last Admin: 06/21/19 14:37 Dose: 12.5 mg Valsartan (Diovan -) 160 mg PO DAILY [facility] Last Admin: 06/22/19 10:35 Dose: 160 mg Allergies: Sulfa. Codeine Propoxyphene napsylate. Physical Examination: 79-year-old female was complaining of nausea still had residual effects of nausea and lightheadedness, in no distress, no pallor, cyanosis, clubbing or jaundice. Last Vital Signs Temp Pulse Resp BP Pulse Ox 98.3 F 57 L 24 H 160/58 L 98 06/22/19 06:00 06/22/19 08:21 06/22/19 08:00 06/22/19 08:00 06/22/19 08:21 Neck: Supple, left neck is bandaged. Unable to examine the left carotid because of recent surgery. No right carotid bruit appreciated. No thyromegaly. There is a well-healed right carotid endarterectomy scar. Heart: PMI was in the fifth intercostal space, no heaves or thrills, S1 and S2 were normal, no murmur or gallops were heard. Lungs: Clear on auscultation. Chest: Normal AP diameter, expansion was symmetrical. Abdomen: Obese, soft and nontender. No hepatosplenomegaly or palpable masses were felt. Extremities: No calf tenderness trace right ankle edema. There were stases changes. Femoral pulses were 2+ dorsalis pedis and posterior tibial pulses were 1+. LAB DATA: CBC, BMP 06/22/19 06:00 06/22/19 06:00 TROP: <0.02 x2 and CK 58 and 47. ECG reported to be normal. IMPRESSION: 1. Status post left carotid endarterectomy. 2. Hypertension, hypertensive cardiovascular disease, presently normotensive. 3. Paroxysmal atrial fibrillation, currently in sinus rhythm. 4. Status post right carotid endarterectomy. 5. Hypercholesterolemia. 6. History of pulmonary hypertension. 7. History of bilateral venous insufficiency. 8. Status post DVT. 9. Hypothyroidism, on replacement therapy. RECOMMENDATIONS: 1. Increase ambulation. 2. Continue current cardiac therapy. Matt Botello MD, FACC
--- NOTE | 2019-06-22 13:48 | PN ---
Physical Exam: SUBJECTIVE: Patient seen and examined OBJECTIVE: Vital Signs Period Temp Pulse Resp BP Sys/Mcghee Pulse Ox Last 24 Hr 97.4 F-98.5 F 56-73 13-24 125-173/50-87 97-98 GENERAL: A&Ox3, no acute distress EYES: PERRLA, EOMI ENT: Dry mucus membranes NECK: Non-bleeding dressing noted over L carotid artery, no obvious masses or hematomas. Pulses palpated and even. No bruit auscultated LUNGS: CTA, no wheezes HEART: RRR, no murmurs ABDOMEN: Soft, nontender, BS normoactive EXTREMITIES: 2+ pulses, no edema. NEUROLOGICAL: Cranial nerves II-XII intact. No focal motor or sensory deficits. Laboratory Results - last 24 hr 06/21/19 06/22/19 06/22/19 16:20 06:00 06:00 WBC 5.0 RBC 2.72 L Hgb 9.7 L Hct 28.3 L MCV 103.9 H MCH 35.8 H MCHC 34.5 RDW 16.3 H Plt Count 314 MPV 7.0 L Sodium 144 Potassium 3.8 Chloride 111 H Carbon Dioxide 29 Anion Gap 4 L BUN 10.4 Creatinine 0.7 Est GFR (CKD-EPI)AfAm 96.18 Est GFR (CKD-EPI)NonAf 82.99 Random Glucose 93 Calcium 8.2 L Total Bilirubin 0.5 AST 23 ALT 26 Alkaline Phosphatase 79 Creatine Kinase 58 Troponin I < 0.02 Total Protein 6.0 L Albumin 2.9 L 06/22/19 06:00 WBC RBC Hgb Hct MCV MCH MCHC RDW Plt Count MPV Sodium Potassium Chloride Carbon Dioxide Anion Gap BUN Creatinine Est GFR (CKD-EPI)AfAm Est GFR (CKD-EPI)NonAf Random Glucose Calcium Total Bilirubin AST ALT Alkaline Phosphatase Creatine Kinase 47 Troponin I < 0.02 Total Protein Albumin Active Medications Generic Name Dose Route Start Last Admin Trade Name Freq PRN Reason Stop Dose Admin Acetaminophen 650 mg 06/22/19 01:58 06/22/19 02:00 Tylenol - PO 650 mg Q4H PRN Administration MODERATE PAIN Al Hydroxide/Mg Hydroxide 30 ml 06/22/19 01:54 06/22/19 02:26 Mylanta Oral Suspension - PO 30 ml Q6H PRN Administration DYSPEPSIA Apixaban 5 mg 06/22/19 10:00 06/22/19 10:35 Eliquis - PO 5 mg BID VINCE Administration Atorvastatin Calcium 10 mg 06/21/19 22:00 06/21/19 21:07 Lipitor - PO 10 mg HS VINCE Administration Levothyroxine Sodium 50 mcg 06/22/19 07:00 06/22/19 06:11 Synthroid - PO 50 mcg 0700 VINCE Administration Metoprolol Succinate 100 mg 06/22/19 07:00 06/22/19 06:11 Toprol Xl - PO 100 mg AM VINCE Administration Metoprolol Succinate 50 mg 06/21/19 22:00 06/21/19 21:07 Toprol Xl - PO 50 mg HS VINCE Administration Nifedipine 30 mg 06/22/19 08:00 06/22/19 07:54 Procardia Xl - PO 30 mg DAILY VINCE Administration Valsartan 160 mg 06/22/19 10:00 06/22/19 10:35 Diovan - PO 160 mg DAILY VINCE Administration ASSESSMENT/PLAN: Sushma Montoya is a 79 year old female with a history of hypertension, paroxysmal atrial fibrillation, hypercholesterolemia, carotid artery disease, s/p R sided carotid endarterectomy (10 years ago), hypothyroidism, pulmonary hypertension, and history of deep vein thrombosis is admitted to the ICU s/p L sided carotid endarterectomy for 80% stenosis of L carotid artery Carotid Stenosis on L Hypertension PAD HLD Atrial Fibrillation Neurological -currently A&O without any neurological deficits -q1h neurochecks to assess for decline in neuro status -pain control Cardiovascular -maintain systolic BP between 100-150 per guidelines -monitor for bleeding -HOB elevation -continue home toprol, nifedipine, and valsartan -continue statin -restart Elliquis Pulmonary -on NC, satting well -incentive spirometer Gastrointestinal -nausea episodes resolved, likely post anesthesia -phenergan/zofran for nausea prn Renal -no active issues Endocrine -hypothyroidism, continue home synthroid FEN -no standing fluids -continue to monitor electrolytes and replete as necessary -regular diet CODE -full code Prophylaxis -on home Elliquis Disposition -stable for monitoring on telemetry CASE DISCUSSED WITH DR VIOLETA HERMOSILLO DO - PGY-1 Visit type - Emergency Visit Emergency Visit: No - New Patient This patient is new to me today: Yes Date on this admission: 06/22/19 - Critical Care Critical Care patient: No
--- NOTE | 2019-06-22 13:52 | PN ---
Teaching Attending Note Name of Resident: Pravin Valadez ATTENDING PHYSICIAN STATEMENT I saw and evaluated the patient. I reviewed the resident's note and discussed the case with the resident. I agree with the resident's findings and plan as documented. SUBJECTIVE: Patient seen and examined in the ICU. Awake and alert. Minimal discomfort at the surgical site. No CP or SOB. No acute events overnight. Intake & Output 06/19/19 06/20/19 06/21/19 06/22/19 23:59 23:59 23:59 23:59 Intake Total 1800 1400 Output Total 100 1600 Balance 1700 -200 Weight 214 lb 164 lb 0.383 oz Last Vital Signs Temp Pulse Resp BP Pulse Ox 98.3 F 57 L 24 H 160/58 L 98 06/22/19 06:00 06/22/19 08:21 06/22/19 08:00 06/22/19 08:00 06/22/19 08:21 Active Medications Acetaminophen (Tylenol -) 650 mg PO Q4H PRN PRN Reason: MODERATE PAIN Last Admin: 06/22/19 02:00 Dose: 650 mg Al Hydroxide/Mg Hydroxide (Mylanta Oral Suspension -) 30 ml PO Q6H PRN PRN Reason: DYSPEPSIA Last Admin: 06/22/19 02:26 Dose: 30 ml Apixaban (Eliquis -) 5 mg PO BID [facility] Last Admin: 06/22/19 10:35 Dose: 5 mg Atorvastatin Calcium (Lipitor -) 10 mg PO HS [facility] Last Admin: 06/21/19 21:07 Dose: 10 mg Levothyroxine Sodium (Synthroid -) 50 mcg PO 0700 [facility] Last Admin: 06/22/19 06:11 Dose: 50 mcg Metoprolol Succinate (Toprol Xl -) 100 mg PO AM [facility] Last Admin: 06/22/19 06:11 Dose: 100 mg Metoprolol Succinate (Toprol Xl -) 50 mg PO HS [facility] Last Admin: 06/21/19 21:07 Dose: 50 mg Nifedipine (Procardia Xl -) 30 mg PO DAILY [facility] Last Admin: 06/22/19 07:54 Dose: 30 mg Valsartan (Diovan -) 160 mg PO DAILY [facility] Last Admin: 06/22/19 10:35 Dose: 160 mg GENERAL: A&Ox3, NAD EYES: PERRLA, EOMI ENT: Dry mucus membranes NECK: Non-bleeding dressing noted over L carotid artery, no obvious masses or hematomas. Pulses palpated LUNGS: CTA, no wheezes HEART: RRR, no murmurs ABDOMEN: Soft, nontender, BS diminished MUSCULOSKELETAL: No CVA Tenderness EXTREMITIES: 2+ pulses, no edema. NEUROLOGICAL: Non-focal Laboratory Results - last 24 hr 06/21/19 06/22/19 06/22/19 16:20 06:00 06:00 WBC 5.0 RBC 2.72 L Hgb 9.7 L Hct 28.3 L MCV 103.9 H MCH 35.8 H MCHC 34.5 RDW 16.3 H Plt Count 314 MPV 7.0 L Sodium 144 Potassium 3.8 Chloride 111 H Carbon Dioxide 29 Anion Gap 4 L BUN 10.4 Creatinine 0.7 Est GFR (CKD-EPI)AfAm 96.18 Est GFR (CKD-EPI)NonAf 82.99 Random Glucose 93 Calcium 8.2 L Total Bilirubin 0.5 AST 23 ALT 26 Alkaline Phosphatase 79 Creatine Kinase 58 Troponin I < 0.02 Total Protein 6.0 L Albumin 2.9 L 06/22/19 06:00 WBC RBC Hgb Hct MCV MCH MCHC RDW Plt Count MPV Sodium Potassium Chloride Carbon Dioxide Anion Gap BUN Creatinine Est GFR (CKD-EPI)AfAm Est GFR (CKD-EPI)NonAf Random Glucose Calcium Total Bilirubin AST ALT Alkaline Phosphatase Creatine Kinase 47 Troponin I < 0.02 Total Protein Albumin ASSESSMENT/PLAN: POD #1: Left CEA Hypertension Paroxysmal atrial fibrillation Hypercholesterolemia Carotid artery disease S/P Right carotid endarterectomy (10 years ago) Hypothyroidism Pulmonary hypertension Neurochecks O2 as needed Incentive Spirometry Continue home meds Monitor for bleeding Pain control PO as tolerated Cardiac Telemetry monitoring VTE prophylaxis Dr Looney
--- NOTE | 2019-06-22 17:02 | PATH ---
Surgical Pathology Report Patient Name: ANNABEL CARO [facility]. Rec. 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 Specimen(s) Received PLAQUE LEFT CAROTID ARTERY Clinical History Carotid stenosis left Final Diagnosis PLAQUE, CAROTID ARTERY, LEFT, ENDARTERECTOMY: ATHEROMATOUS AND CALCIFIED PLAQUE. Electronically Signed Shara Valiente M.D. Gross Description Received in formalin labeled "plaque of the left carotid artery," is a 3.2 x 0.8 x 0.7 cm aggregate of kellogg-yellow, focally calcified plaque material. Boom Man sections are submitted in one cassette, following decalcification. /06/21/2019 saudi/06/21/2019
[2019-06-22] MEDS: ATORVASTATIN CA 10 MG TABLET (FP) PO SCH (21:45)
[2019-06-23] MEDS ORDERED: MELATONIN 5 MG TABLETS PO ONE (01:45)
[2019-06-23] MEDS: ACETAMINOPHEN 325 MG TABLET (FP) PO PRN ×2 (01:54→08:02)
[2019-06-23] MEDS: LEVOTHYROXINE NA 50 MCG TABLET (FP) PO SCH (06:03)
[2019-06-23 06:49] LABS: BASO % 0.4 % (0-2.0); EOS % 2.9 % (0-4.5); HEMATOCRIT 27.3 % (32.4-45.2); HEMOGLOBIN 9.3 GM/dL (10.7-15.3); LYMPH % 53.7 % (8-40); MCH 35.8 pg (25.7-33.7); MCHC 34.2 g/dl (32.0-36.0); MEAN CELL VOLUME 104.6 fl (80-96); MEAN PLT VOLUME 7.1 fl (7.5-11.1); MONO % 7.9 % (3.8-10.2); NEUT % 35.1 % (42.8-82.8); PLATELET COUNT 318 K/MM3 (134-434); RBC 2.61 M/mm3 (3.60-5.2); RDW 16.9 % (11.6-15.6)
[2019-06-23 06:50] LABS: BLOOD UREA NITROGEN 12.3 mg/dL (7-18); CALCIUM 8.2 mg/dL (8.5-10.1); CREATININE 0.7 mg/dL (0.55-1.3); MAGNESIUM 2.1 mg/dL (1.8-2.4); PHOSPHOROUS 2.6 mg/dL (2.5-4.9); POTASSIUM 4.5 mmol/L (3.5-5.1)
[2019-06-23] MEDS ORDERED: RANITIDINE HCL 150 MG TABLET (FP) PO PRN (07:36)
--- NOTE | 2019-06-23 07:51 | DS ---
Physical Exam: SUBJECTIVE: POD #2 s/p Left CEA. No acute events over past 24hrs per RN notes. Patient is alert. Resting comfortably. C/o mild incisional tenderness. Adequate pain control with medications ordered. Tolerating PO diet. Denies n/v/f/c, CP, SOB, MANNING, JUNE, numbness/tingling. OBJECTIVE: Vital Signs Temperature 98.3 F 06/23/19 06:00 Pulse Rate 59 L 06/23/19 06:00 Respiratory Rate 15 06/23/19 06:00 Blood Pressure 122/72 06/23/19 06:00 O2 Sat by Pulse Oximetry (%) 98 06/22/19 19:30 PHYSICAL EXAM GENERAL: The patient is awake, alert, and fully oriented, in no acute distress. HEAD: Normal with no signs of trauma. EYES: PERRL NECK: Trachea midline, Left neck ayanna intact. Small soft tissue hematoma under staple line (stable). EXTREMITIES: 2+ pulses, warm, well-perfused, no edema. NEUROLOGICAL: CN II - XII grossly intact. Normal speech, gait not observed. PSYCH: Normal mood, normal affect. LABS CBC,CMP WBC 6.0 K/mm3 (4.0-10.0) 06/23/19 05:05 RBC 2.61 M/mm3 (3.60-5.2) L 06/23/19 05:05 Hgb 9.3 GM/dL (10.7-15.3) L 06/23/19 05:05 Hct 27.3 % (32.4-45.2) L 06/23/19 05:05 MCV 104.6 fl (80-96) H 06/23/19 05:05 MCH 35.8 pg (25.7-33.7) H 06/23/19 05:05 MCHC 34.2 g/dl (32.0-36.0) 06/23/19 05:05 RDW 16.9 % (11.6-15.6) H 06/23/19 05:05 Plt Count 318 K/MM3 (134-434) 06/23/19 05:05 MPV 7.1 fl (7.5-11.1) L 06/23/19 05:05 Absolute Neuts (auto) 2.1 K/mm3 (1.5-8.0) 06/23/19 05:05 Neutrophils % 35.1 % (42.8-82.8) L D 06/23/19 05:05 Lymphocytes % 53.7 % (8-40) H D 06/23/19 05:05 Monocytes % 7.9 % (3.8-10.2) 06/23/19 05:05 Eosinophils % 2.9 % (0-4.5) 06/23/19 05:05 Basophils % 0.4 % (0-2.0) 06/23/19 05:05 Nucleated RBC % 0 % (0-0) 06/23/19 05:05 Sodium 143 mmol/L (136-145) 06/23/19 05:05 Potassium 4.5 mmol/L (3.5-5.1) 06/23/19 05:05 Chloride 109 mmol/L (98-107) H 06/23/19 05:05 Carbon Dioxide 29 mmol/L (21-32) 06/23/19 05:05 Anion Gap 5 MMOL/L (8-16) L 06/23/19 05:05 BUN 12.3 mg/dL (7-18) 06/23/19 05:05 Creatinine 0.7 mg/dL (0.55-1.3) 06/23/19 05:05 Est GFR (CKD-EPI)AfAm 96.18 06/23/19 05:05 Est GFR (CKD-EPI)NonAf 82.99 06/23/19 05:05 Random Glucose 99 mg/dL (74-106) 06/23/19 05:05 Calcium 8.2 mg/dL (8.5-10.1) L 06/23/19 05:05 Phosphorus 2.6 mg/dL (2.5-4.9) 06/23/19 05:05 Magnesium 2.1 mg/dL (1.8-2.4) 06/23/19 05:05 Total Bilirubin 0.5 mg/dL (0.2-1) 06/22/19 06:00 AST 23 U/L (15-37) 06/22/19 06:00 ALT 26 U/L (13-61) 06/22/19 06:00 Alkaline Phosphatase 79 U/L (45-117) 06/22/19 06:00 Creatine Kinase 47 U/L (26-192) 06/22/19 06:00 Troponin I < 0.02 ng/ml (0.00-0.05) 06/22/19 06:00 Total Protein 6.0 g/dl (6.4-8.2) L 06/22/19 06:00 Albumin 2.9 g/dl (3.4-5.0) L 06/22/19 06:00 HOSPITAL COURSE: Date of Admission:06/21/19 Date of Discharge: 06/23/19 The patient was admitted to the ICU s/p Left carotid endarterectomy on 06/21/19 ( secondary to stenosis due to atherosclerosis). Celeste-operative IV ABX were administered. DVT prophylaxis was achieved with SCDs and early ambulation. Narcotic and non-narcotic pain management control was achieved with an oral and IV approach. The patient ambulated with Physical Therapy and no services were recommended upon discharge. [place] [employer] checked prior to escribe of narcotics for home pain management. The discharge instructions and an oral pain management plan were reviewed with the patient. All questions answered. Above plan discussed with Dr. Monson and agreed. Minutes to complete discharge: 35 Visit type - Case Type Case Type: Scheduled
[2019-06-23] MEDS ORDERED: PT OWN MED DRAWER 7, Y5N ONE (09:42)
[2019-06-23] MEDS: APIXABAN 5 MG TABLET PO SCH (09:48)
[2019-06-23] MEDS: VALSARTAN 160 MG TABLET (UD) PO SCH (09:48)
[2019-06-23] MEDS: NIFEdipine E.R. 30 MG TABLET (FP) PO SCH (09:49)
[2019-06-23] MEDS ORDERED: NAPH,MB-DB/K PH,MBDB POWDER PACKET PO ONE (10:00)
[2019-06-23 11:14] VITALS: BP 108/56; PULSE 61; TEMP 97.4
--- NOTE | 2019-06-23 11:24 | PN ---
Teaching Attending Note Name of Resident: Pravin Valadez ATTENDING PHYSICIAN STATEMENT I saw and evaluated the patient. I reviewed the resident's note and discussed the case with the resident. I agree with the resident's findings and plan as documented. SUBJECTIVE: Patient seen and examined in the ICU. Awake and alert. Minimal discomfort at the surgical site. No CP or SOB. No acute events overnight. Noted slight drift in H&H. Intake & Output 06/20/19 06/21/19 06/22/19 06/23/19 23:59 23:59 23:59 23:59 Intake Total 1800 2400 250 Output Total 100 2150 250 Balance 1700 250 0 Weight 214 lb 164 lb 0.383 oz Last Vital Signs Temp Pulse Resp BP Pulse Ox 97.4 F L 61 15 108/56 L 97 06/23/19 10:00 06/23/19 10:00 06/23/19 10:00 06/23/19 10:00 06/23/19 10:29 GENERAL: A&Ox3, NAD EYES: PERRLA, EOMI ENT: Dry mucus membranes NECK: Non-bleeding dressing noted over L carotid artery, no obvious masses or hematomas. Pulses palpated LUNGS: CTA, no wheezes HEART: RRR, no murmurs ABDOMEN: Soft, nontender, BS diminished MUSCULOSKELETAL: No CVA Tenderness EXTREMITIES: 2+ pulses, no edema. NEUROLOGICAL: Non-focal Laboratory Results - last 24 hr 06/23/19 06/23/19 05:05 05:05 WBC 6.0 RBC 2.61 L Hgb 9.3 L Hct 27.3 L MCV 104.6 H MCH 35.8 H MCHC 34.2 RDW 16.9 H Plt Count 318 MPV 7.1 L Absolute Neuts (auto) 2.1 Neutrophils % 35.1 L D Lymphocytes % 53.7 H D Monocytes % 7.9 Eosinophils % 2.9 Basophils % 0.4 Nucleated RBC % 0 Sodium 143 Potassium 4.5 Chloride 109 H Carbon Dioxide 29 Anion Gap 5 L BUN 12.3 Creatinine 0.7 Est GFR (CKD-EPI)AfAm 96.18 Est GFR (CKD-EPI)NonAf 82.99 Random Glucose 99 Calcium 8.2 L Phosphorus 2.6 Magnesium 2.1 ASSESSMENT/PLAN: POD #1: Left CEA Hypertension Paroxysmal atrial fibrillation Hypercholesterolemia Carotid artery disease S/P Right carotid endarterectomy (10 years ago) Hypothyroidism Pulmonary hypertension Neurochecks O2 as needed Incentive Spirometry Continue home meds Monitor for bleeding Pain control PO as tolerated Cardiac Telemetry monitoring VTE prophylaxis Floor Dr Looney
--- NOTE | 2019-06-23 11:36 | PN ---
Physical Exam: SUBJECTIVE: Patient seen and examined at the bedside. States she has no acute complaints of cp, sob, abd pain, n/v, fever, chills, weakness, numbness, tingling. Had a headache overnight which was treated with tylenol with good effect and subsequently had no headaches. Stable for discharge home. OBJECTIVE: Vital Signs Period Temp Pulse Resp BP Sys/Mcghee Pulse Ox Last 24 Hr 97.4 F-98.5 F 58-67 14-20 108-161/46-72 97-98 GENERAL: A&Ox3, no acute distress EYES: PERRLA, EOMI ENT: Dry mucus membranes NECK: Non-bleeding dressing noted over L carotid artery, no obvious masses or hematomas. Pulses palpated and even. No bruit auscultated LUNGS: CTA, no wheezes HEART: RRR, no murmurs ABDOMEN: Soft, nontender, BS normoactive EXTREMITIES: 2+ pulses, no edema. NEUROLOGICAL: Cranial nerves II-XII intact. No focal motor or sensory deficits. Laboratory Results - last 24 hr 06/23/19 06/23/19 05:05 05:05 WBC 6.0 RBC 2.61 L Hgb 9.3 L Hct 27.3 L MCV 104.6 H MCH 35.8 H MCHC 34.2 RDW 16.9 H Plt Count 318 MPV 7.1 L Absolute Neuts (auto) 2.1 Neutrophils % 35.1 L D Lymphocytes % 53.7 H D Monocytes % 7.9 Eosinophils % 2.9 Basophils % 0.4 Nucleated RBC % 0 Sodium 143 Potassium 4.5 Chloride 109 H Carbon Dioxide 29 Anion Gap 5 L BUN 12.3 Creatinine 0.7 Est GFR (CKD-EPI)AfAm 96.18 Est GFR (CKD-EPI)NonAf 82.99 Random Glucose 99 Calcium 8.2 L Phosphorus 2.6 Magnesium 2.1 ASSESSMENT/PLAN: Sushma Montoya is a 79 year old female with a history of hypertension, paroxysmal atrial fibrillation, hypercholesterolemia, carotid artery disease, s/p R sided carotid endarterectomy (10 years ago), hypothyroidism, pulmonary hypertension, and history of deep vein thrombosis is admitted to the ICU s/p L sided carotid endarterectomy for 80% stenosis of L carotid artery Carotid Stenosis on L Hypertension PAD HLD Atrial Fibrillation Neurological -currently A&O without any neurological deficits -pain adequately controlled with PO meds Cardiovascular -maintain systolic BP between 100-150 per guidelines -continue home toprol, nifedipine, and valsartan -continue statin -continue Eliquis -for f/u with Dr. Briscoe outpatient Pulmonary -on RA, satting well Gastrointestinal -nausea episodes resolved, likely post anesthesia Renal -no active issues Endocrine -hypothyroidism, continue home synthroid FEN -no standing fluids -continue to monitor electrolytes and replete as necessary -regular diet CODE -full code Prophylaxis -on home Elliquis Disposition -stable for discharge home CASE DISCUSSED WITH DR VIOLETA HERMOSILLO DO - PGY-1 Visit type - Emergency Visit Emergency Visit: No - New Patient This patient is new to me today: No - Critical Care Critical Care patient: No
== END 2019-06-23 11:13 | disposition home or self-care (01) | DRG 39 ==
LOC: JSAMEDAYSX 04:54 → JICU 13:30
PROVIDERS: ADMIT Surgery; ATTEND Surgery
PROC: 03CL0ZZ Extirpation of Matter from Left Internal Carotid Artery, Open Approach (ICD-10-PCS; 2019-06-21)
PROC: 03UJ0JZ Supplement Left Common Carotid Artery with Synthetic Substitute, Open Approach (ICD-10-PCS; 2019-06-21)
PROC: 03UL0JZ Supplement Left Internal Carotid Artery with Synthetic Substitute, Open Approach (ICD-10-PCS; 2019-06-21)
PROC: 03CJ0Z6 (ICD-10-PCS; principal; 2019-06-21 10:00)
DX: I65.22 Occlusion and stenosis of left carotid artery (principal); I10 Essential (primary) hypertension; E78.5 Hyperlipidemia, unspecified; F41.9 Anxiety disorder, unspecified; M54.5 Low back pain; I87.8 Other specified disorders of veins; Z90.710 Acquired absence of both cervix and uterus; E66.9 Obesity, unspecified; Z68.30 Body mass index [BMI] 30.0-30.9, adult; I48.0 Paroxysmal atrial fibrillation; I27.20 Pulmonary hypertension, unspecified; E03.9 Hypothyroidism, unspecified; Z86.718 Personal history of other venous thrombosis and embolism; M19.90 Unspecified osteoarthritis, unspecified site
CPT/HCPCS: 36415; 80048; 80053; 82550; 83735; 84100; 84484; 85025; 85027; 86850; 86900; 86901; 86922; 88304-TC; 93005; 93010; 97116-GP; 97161-GP; J1644

== ENCOUNTER 2019-11-29 13:28 | Inpatient (IN) | payer OTHER, MEDICARE ==
[2019-11-29 13:42] VITALS: BMI 36.6
--- NOTE | 2019-11-29 14:45 | PDOC ---
Attending Attestation - Resident Resident Name: AmandaLeandro resendez - ED Attending Attestation I have performed the following: I have examined & evaluated the patient, The case was reviewed & discussed with the resident, I agree w/resident's findings & plan, Exceptions are as noted - HPI HPI: 79 yo F history HTN, HL, afib, DVTs, R CEA, hypothyroid, pulmonary hypertension presents s/p near syncope. She states she felt sudden dizziness while in the shower, tried to remain standing using railing for assistance, but slowly fell despite this attempt. Denies any head trauma. Parag any pain at present. - Physicial Exam PE: GENERAL: Awake, alert, oriented to person and place, in no acute distress HEAD: No signs of trauma EYES: PERRLA, EOMI, sclera anicteric, conjunctiva clear ENT: Auricles normal inspection, hearing grossly normal, nares patent, oropharynx clear without exudates. Moist mucosa NECK: Normal ROM, supple, no lymphadenopathy, JVD, or masses LUNGS: Breath sounds equal, clear to auscultation bilaterally. No wheezes, and no crackles HEART: Regular rate and rhythm, normal S1 and S2, no murmurs, rubs or gallops ABDOMEN: Soft, nontender, normoactive bowel sounds. No guarding, no rebound. No masses EXTREMITIES: Normal range of motion, no edema. No clubbing or cyanosis. No cords, erythema, or tenderness NEUROLOGICAL: Cranial nerves II through XII grossly intact. Normal speech. Motor and sensation intact SKIN: Warm, dry, normal turgor, no rashes or lesions noted. - Medical Decision Making Pt with multiple cardiac risk factors presenting s/p near syncope. Will CT her head as she is less alert than her baseline as per . Will obtain cardiac workup and admit.
--- NOTE | 2019-11-29 14:46 | PDOC ---
History of Present Illness - General Chief Complaint: Syncope/Near Syncope Stated Complaint: FALL Time Seen by Provider: 11/29/19 13:58 History Source: Patient Exam Limitations: No Limitations - History of Present Illness Initial Comments: 11/29/19 14:18 79 yo female pmh HTN, HLD, paroxysmal atrial fibrillation (on eliquis) DVTs, s/ p right carotid endarterectomy (08/2019), hypothyroidism and history of pulmonary hypertension presents to the ED after a presyncopal episode. Pt states at 11 am while showering shee felt a sudden prodrom of dizziness, attempted to use the grab bar to hold her dself up however, was unable to do so and slowly fell to the floor. Denies CP/palpitations/SOB prior to or after the event, denies hitting head, changes in vision, confusion, neck pain/pain or injury to any part of her body, F/C/N/V, confusion, weakness or sensory changes to 1 side of her body. Denies changes in bowel or bladder habits Pt admits to recent diagnosis of asthmatic bronchitis by PCP Dr. Paez, treated with steroids and Azithro with improvement of symptoms and F/U appointment with PCP states cleared episode. at the bedside, states he noticed pt over the past week has been more pale and lethargic than usual. Past History - Past Medical History Allergies/Adverse Reactions: Allergies Allergy/AdvReac Type Severity Reaction Status Date / Time codeine [Codeine] Allergy Intermediate nausea Verified 12/02/19 22:42 propoxyphene napsylate Allergy Intermediate nausea Verified 12/02/19 22:42 [From Darvocet-N 100] Sulfa (Sulfonamide Allergy Intermediate rash itch Verified 12/02/19 22:42 Antibiotics) [Sulfa(Sulfonamide Antibiotics)] Home Medications: Ambulatory Orders Calcium Carbonate/Vitamin D3 [Calcium 600-Vit D3 800 Tablet] 600 mg PO BID 04/11 Cholecalciferol (Vitamin D3) [Vitamin D3] 2,000 unit PO DAILY 04/11/15 Levothyroxine [Synthroid -] 50 mcg PO DAILY 04/11/15 Biotin 5,000 mg PO DAILY 10/20/16 Glucosamine-Chondr Plus Sftgel 1,500 mg PO DAILY 10/20/16 Ubidecarenone [Co Q-10] 200 mg PO DAILY 10/20/16 Apixaban [Eliquis -] 5 mg PO BID 30 Days tablet 10/23/16 Valsartan [Diovan] 160 mg PO DAILY #30 tablet 10/23/16 Metoprolol Succinate [Toprol XL -] 50 mg PO HS 10/04/18 Metoprolol Succinate [Toprol XL -] 100 mg PO AM 10/04/18 Nifedipine ER [Procardia XL -] 30 mg PO DAILY 10/04/18 Furosemide 40 tab PO ASDIR 06/03/19 Simvastatin 20 mg PO HS 06/03/19 Acetaminophen [Tylenol .Extra-Strength -] 1,000 mg PO Q6H PRN tablet 12/02/19 traMADol HCL [Ultram -] 50 mg PO Q6H PRN #20 tablet MDD 4 12/02/19 Lidocaine 5% Patch [Lidoderm Patch -] 1 patch TP DAILY 4 Days #4 patch MDD 1 patch 12/03/19 Walker [Ultra-Light Rollator] 1 each MC DAILY 1 Days #1 each 12/03/19 Anemia: No Asthma: No Cancer: No Cardiac Disorders: Yes (A Fib) CVA: No COPD: No CHF: No Dementia: No Diabetes: Yes (pre diabetic) GI Disorders: No Disorders: No HTN: Yes Hypercholesterolemia: Yes Liver Disease: No Seizures: No Thyroid Disease: Yes - Surgical History Abdominal Surgery: No Appendectomy: No Cardiac Surgery: No (CAROTID ARTERY) Cholecystectomy: Yes Lung Surgery: No Neurologic Surgery: No Orthopedic Surgery: Yes (may knee arthroscopy) - Psycho Social/Smoking Cessation Hx Smoking History: Never smoked Have you smoked in the past 12 months: No Information on smoking cessation initiated: No Hx Alcohol Use: No Drug/Substance Use Hx: No Substance Use Type: Alcohol Hx Substance Use Treatment: No Review of Systems - Review of Systems Constitutional: No: Chills, Fever HEENTM: No: Blurred Vision, Double Vision Respiratory: No: Cough, Shortness of Breath Cardiac (ROS): Yes: Other (pre syncope and collapse). No: Chest Pain, Edema, Palpitations ABD/GI: No: Constipated, Diarrhea, Nausea, Vomiting : No: Burning, Dysuria, Discharge, Frequency Musculoskeletal: No: Back Pain, Muscle Weakness Integumentary: No: Pallor Neurological: No: Headache, Numbness, Tingling, Weakness, Ataxia *Physical Exam - Vital Signs Last Vital Signs Temp Pulse Resp BP Pulse Ox 97.1 F L 52 L 18 126/41 L 100 11/29/19 13:39 11/29/19 13:39 11/29/19 13:39 11/29/19 13:39 11/29/19 13:39 - Physical Exam General Appearance: Yes: Nourished, Appropriately Dressed. No: Apparent Distress HEENT: positive: EOMI, TAVON. negative: Pale Conjunctivae Neck: positive: Supple. negative: Rigid, Carotid bruit, Tender midline Respiratory/Chest: positive: Lungs Clear, Normal Breath Sounds. negative: Accessory Muscle Use, Rapid RR, Crackles, Rales, Rhonchi, Stridor, Wheezing Cardiovascular: positive: Regular Rhythm, Regular Rate, S1, S2. negative: Edema , JVD, Murmur Vascular Pulses: Dorsalis-Pedis (R): 4+, Doralis-Pedis (L): 4+ Gastrointestinal/Abdominal: positive: Flat, Soft. negative: Pulsatile Mass, Distended, Guarding, Rebound, Tenderness Musculoskeletal: negative: CVA Tenderness Extremity: positive: Normal Capillary Refill, Normal Inspection, Normal Range of Motion Integumentary: positive: Normal Color, Dry, Warm Neurologic: positive: business development recruiter II-XII NML intact, Fully Oriented, Alert, Normal Mood/ Affect, Normal Response, Motor Strength 5/5. negative: Facial Droop, Numbness, Sensory Deficit, Confused, Disoriented ED Treatment Course - LABORATORY CBC & Chemistry Diagram: 12/01/19 05:20 12/01/19 05:20 - RADIOLOGY Radiology Studies Ordered: Category Date Time Status HEAD CT WITHOUT CONTRAST [CT] Stat CT Scan 11/29/19 14:15 Ordered CHEST X-RAY PORTABLE* [RAD] Stat Radiology 11/29/19 14:15 Ordered Medical Decision Making - Medical Decision Making 79 yo female pmh HTN, HLD, paroxysmal atrial fibrillation (on eliquis) DVTs, s/ p right carotid endarterectomy (08/2019), hypothyroidism and history of pulmonary hypertension presents to the ED after a presyncopal episode. Pt states at 11 am while showering shee felt a sudden prodrom of dizziness, attempted to use the grab bar to hold her dself up however, was unable to do so and slowly fell to the floor. Denies CP/palpitations/SOB prior to or after the event, denies hitting head, changes in vision, confusion, neck pain/pain or injury to any part of her body, F/C/N/V, confusion, weakness or sensory changes to 1 side of her body. Denies changes in bowel or bladder habits Pt admits to recent diagnosis of asthmatic bronchitis by PCP Dr. Paez, treated with steroids and Azithro with improvement of symptoms and F/U appointment with PCP states cleared episode. at the bedside, states he noticed pt over the past week has been more pale and lethargic than usual. vitals stable EKG sinus bradicardia without LEORA Cardiac workup, continuos cardiac monitoring for pre syncopal episode and collapse IV access and labs difficult to obtain. After multiple attempts by nursing staff and me with use of US guidance (vessels deeper than 2 cm) a Left EJ venous catheter placed. Pt tolerated well, blood return noted, lung sliding noted with US after procedure without SOB Head CT ordered (on AC) Labs heme of 9.6, neg stool occult trop and electrolytes WNL Head CT neg for acute pathology will admit Discharge - Discharge Information Problems reviewed: Yes Clinical Impression/Diagnosis: Syncope and collapse Condition: Stable Disposition: VNS/HOME HEALTH CARE - Admission Yes - Follow up/Referral - Patient Discharge Instructions - Post Discharge Activity
[2019-11-29] MEDS: SODIUM CHLORIDE 1,000 ML IV SCH (14:50)
[2019-11-29 16:58] LABS: BASO % 0.2 % (0-2.0); EOS % 0.2 % (0-4.5); HEMATOCRIT 27.8 % (32.4-45.2); HEMOGLOBIN 9.6 GM/dL (10.7-15.3); LYMPH % 22.1 % (8-40); MCH 35.4 pg (25.7-33.7); MCHC 34.5 g/dl (32.0-36.0); MEAN CELL VOLUME 102.8 fl (80-96); MONO % 6.5 % (3.8-10.2); PLATELET COUNT 410 K/MM3 (134-434); RDW 15.5 % (11.6-15.6); WHITE BLOOD COUNT 10.8 K/mm3 (4.0-10.0)
[2019-11-29] MEDS ORDERED: SODIUM CHLORIDE 1,000 ML IV STA (17:11)
[2019-11-29 17:18] LABS: INR 1.05 (0.83-1.09); PROTHROMBIN TIME (PATIENT) 12.4 SEC (9.7-13.0)
[2019-11-29 17:20] LABS: ACTIVATED PTT 25.2 SECONDS (25.2-36.5)
[2019-11-29 17:39] LABS: ALBUMIN 2.8 g/dl (3.4-5.0); ALK PHOS 62 U/L (45-117); ANION GAP 9 MMOL/L (8-16); BILIRUBIN,TOTAL 0.8 mg/dL (0.2-1); BLOOD UREA NITROGEN 27.8 mg/dL (7-18); CALCIUM 8.8 mg/dL (8.5-10.1); CHLORIDE 106 mmol/L (98-107); CHOLESTEROL 174 mg/dL (50-200); CO2 24 mmol/L (21-32); CREATININE 0.9 mg/dL (0.55-1.3); GLUCOSE,RANDOM 109 mg/dL (74-106); HDL CHOLESTEROL 59 mg/dL (40-60); LDL CHOLESTEROL (ONLY SJRH) 82 mg/dL (5-100); POTASSIUM 4.1 mmol/L (3.5-5.1); SGOT/AST 24 U/L (15-37); SGPT/ALT 31 U/L (13-61); SODIUM 139 mmol/L (136-145); TOT PROT 5.7 g/dl (6.4-8.2); TRIGLYCERIDES 318 mg/dL (0-150)
[2019-11-29] MEDS ORDERED: ACETAMINOPHEN 325 MG TABLET (FP) ONE (21:09)
[2019-11-29] MEDS: ACETAMINOPHEN 325 MG TABLET (FP) PO PRN (21:13)
--- NOTE | 2019-11-29 23:14 | HP ---
Admitting History and Physical - Admission History of Present Illness: This is a 79 y/o woman with a PMHx of HTN, HLD, paroxysmal Atrial Fibrillation ( on eliquis), DVTs, s/p Right Carotid Endarterectomy (08/2019), Hypothyroidism, Pulmonary Hypertension. Who presents to the ED for a presyncopal episode. Patient report at 11 am while showering shedanial felt a sudden prodrom of dizziness , attempted to use the grab bar to hold her dself up however, was unable to do so and slowly fell to the floor. Denies CP/palpitations/SOB prior to or after the event, denies hitting head, changes in vision, confusion, neck pain/pain or injury to any part of her body, F/C/N/V, confusion, weakness or sensory changes to 1 side of her body. Denies changes in bowel or bladder habits Pt admits to recent diagnosis of asthmatic bronchitis by PCP Dr. Paez, treated with steroids and Azithro with improvement of symptoms and F/U appointment with PCP states cleared episode. at the bedside, states he noticed pt over the past week has been more pale and lethargic than usual. - Past Medical History Cardiovascular: Yes: HTN, Hyperlipdemia Psych: Yes: Anxiety Musculoskeletal: Yes: Chronic low back pain Rheumatology: Yes: Other (osteoarthritis) Endocrine: Yes: Hypothyroidism Dermatology: Yes: Other (Venous stasis both legs) - Past Surgical History Past Surgical History: Yes: Arthrosocopy, Carotid Endarterectomy, Cholecystectomy, Hysterectomy - Smoking History Smoking history: Never smoked Have you smoked in the past 12 months: No - Alcohol/Substance Use Hx Alcohol Use: No - Social History ADL: Independent History of Recent Travel: No Home Medications - Allergies Allergies/Adverse Reactions: Allergies Allergy/AdvReac Type Severity Reaction Status Date / Time codeine [Codeine] Allergy Intermediate nausea Verified 11/29/19 14:11 propoxyphene napsylate Allergy Intermediate nausea Verified 11/29/19 14:11 [From Darvocet-N 100] Sulfa (Sulfonamide Allergy Intermediate rash itch Verified 11/29/19 14:11 Antibiotics) [Sulfa(Sulfonamide Antibiotics)] - Home Medications Home Medications: Ambulatory Orders Calcium Carbonate/Vitamin D3 [Calcium 600-Vit D3 800 Tablet] 600 mg PO BID 04/11 Cholecalciferol (Vitamin D3) [Vitamin D3] 2,000 unit PO DAILY 04/11/15 Levothyroxine [Synthroid -] 50 mcg PO DAILY 04/11/15 Biotin 5,000 mg PO DAILY 10/20/16 Glucosamine-Chondr Plus Sftgel 1,500 mg PO DAILY 10/20/16 Ubidecarenone [Co Q-10] 200 mg PO DAILY 10/20/16 Apixaban [Eliquis -] 5 mg PO BID 30 Days tablet 10/23/16 Valsartan [Diovan] 160 mg PO DAILY #30 tablet 10/23/16 Metoprolol Succinate [Toprol XL -] 50 mg PO HS 10/04/18 Metoprolol Succinate [Toprol XL -] 100 mg PO AM 10/04/18 Nifedipine ER [Procardia XL -] 30 mg PO DAILY 10/04/18 Furosemide 40 tab PO ASDIR 06/03/19 Simvastatin 20 mg PO HS 06/03/19 Physical Examination Vital Signs: Vital Signs Temperature 97.3 F L 11/29/19 20:03 Pulse Rate 66 11/29/19 20:03 Respiratory Rate 18 11/29/19 13:39 Blood Pressure 127/58 L 11/29/19 20:03 O2 Sat by Pulse Oximetry (%) 98 11/29/19 20:03 Constitutional: Yes: Well Nourished, No Distress, Calm Eyes: Yes: WNL, Conjunctiva Clear (R- eye injected), EOM Intact, PERRL HENT: Yes: WNL, Atraumatic, Normocephalic Neck: Yes: WNL, Supple, Trachea Midline Cardiovascular: Yes: Regular Rate and Rhythm, S1, S2 Labs: CBC, BMP 11/29/19 16:39 11/29/19 14:30 Imaging - Results Chest X-ray: Report Reviewed, Image Reviewed Cat Scan: Report Reviewed, Image Reviewed EKG: Image Reviewed Problem List - Problems (1) Syncope and collapse Assessment/Plan: Likely secondary to arrhythmia Serial enzymes Continue cardiac monitoring Appreciate Cardiology consult Orthostatics Fall Precautions Code(s): R55 - SYNCOPE AND COLLAPSE (2) Hyperlipidemia Assessment/Plan: stable Continue home med Code(s): E78.5 - HYPERLIPIDEMIA, UNSPECIFIED Qualifiers: Hyperlipidemia type: pure hypercholesterolemia (3) Hypertension Assessment/Plan: stable Continue home med with parameters monitor renal function Code(s): I10 - ESSENTIAL (PRIMARY) HYPERTENSION Qualifiers: Hypertension type: essential hypertension Qualified Code(s): I10 - Essential (primary) hypertension (4) Hypothyroidism Assessment/Plan: Continue Levothyroxine Code(s): E03.9 - HYPOTHYROIDISM, UNSPECIFIED Qualifiers: Hypothyroidism type: unspecified Qualified Code(s): E03.9 - Hypothyroidism , unspecified Assessment/Plan This is a 79 y/o woman placed in Telemetry Observation for Syncope for further evaluation of their emergent condition. Plan: See Problem List FEN PO fluids per tolerated Replete lytes prn Low Na Diet DVT ppx OOB SCDs Consider AC if LOS > 48hrs Dispo: Observation Visit type - Emergency Visit Emergency Visit: Yes ED Registration Date: 11/29/19 Care time: The patient presented to the Emergency Department on the above date and was hospitalized for further evaluation of their emergent condition. - New Patient This patient is new to me today: Yes Date on this admission: 11/29/19 - Critical Care Critical Care patient: No
[2019-11-30] MEDS ORDERED: ATORVASTATIN CA 10 MG TABLET (FP) ONE (01:37)
[2019-11-30] MEDS ORDERED: APIXABAN 5 MG TABLET ONE (01:37)
[2019-11-30] MEDS: ATORVASTATIN CA 10 MG TABLET (FP) PO SCH ×2 (01:48→21:19)
[2019-11-30] MEDS: APIXABAN 5 MG TABLET PO SCH ×3 (01:48→21:19)
[2019-11-30] MEDS ORDERED: LEVOTHYROXINE NA 25 MCG TABLET (FP) ONE (06:36)
[2019-11-30] MEDS: LEVOTHYROXINE NA 50 MCG TABLET (FP) PO SCH (07:18)
[2019-11-30 08:07] LABS: BASO % 0.2 % (0-2.0); HEMOGLOBIN 9.4 GM/dL (10.7-15.3); LYMPH % 44.8 % (8-40); MCH 34.5 pg (25.7-33.7); MCHC 33.5 g/dl (32.0-36.0); MEAN CELL VOLUME 102.8 fl (80-96); MEAN PLT VOLUME 6.8 fl (7.5-11.1); MONO % 9.5 % (3.8-10.2); NEUT % 44.5 % (42.8-82.8); PLATELET COUNT 371 K/MM3 (134-434); RBC 2.73 M/mm3 (3.60-5.2); RDW 15.9 % (11.6-15.6); WHITE BLOOD COUNT 5.9 K/mm3 (4.0-10.0)
[2019-11-30 08:44] LABS: BLOOD UREA NITROGEN 22.6 mg/dL (7-18); CALCIUM 8.4 mg/dL (8.5-10.1); CREATININE 0.8 mg/dL (0.55-1.3); MAGNESIUM 2.2 mg/dL (1.8-2.4); PHOSPHOROUS 3.6 mg/dL (2.5-4.9); POTASSIUM 4.1 mmol/L (3.5-5.1)
[2019-11-30] MEDS: CHOLECALCIFEROL (VIT D3) 1,000 UNIT (25 MCG) TABLET PO SCH (09:31)
--- NOTE | 2019-11-30 11:27 | CON.CARD ---
Consult Consult Specialty:: Cardiology Referred by:: Medicine Reason for Consultation:: syncope - History of Present Illness Chief Complaint: syncope History of Present Illness: 79F h/o HTN, HLD, pAFib on eliquis, DVTs, s/p may CEA (R CEA 08/2019), hypothyroidism p/w dizziness, fatigue. She was treated last weekf or asthmatic bronchitis per Dr. Gonzales, completed course of azithromycin and steroids, felt better and then yesterday in the shower she felt suddenly dizziness, tired. [place] she had to hold on to the bar in the shower then slowly fell to the floor. not sure if she lost consciousness. No chest pain, palps, dizziness, dyspnea. Sees Dr. Botello for cardio. - Past Medical History Cardio/Vascular: Yes: HTN, Hyperlipdemia Psych: Yes: Anxiety Musculoskeletal: Yes: Chronic low back pain Rheumatology: Yes: Other (osteoarthritis) Endocrine: Yes: Hypothyroidism Dermatology: Yes: Other (Venous stasis both legs) - Past Surgical History Past Surgical History: Yes: Arthrosocopy, Carotid Endarterectomy, Cholecystectomy, Hysterectomy - Alcohol/Substance Use Hx Alcohol Use: No - Smoking History Smoking history: Never smoked Have you smoked in the past 12 months: No - Social History ADL: Independent History of Recent Travel: No Home Medications - Allergies Allergies/Adverse Reactions: Allergies Allergy/AdvReac Type Severity Reaction Status Date / Time codeine [Codeine] Allergy Intermediate nausea Verified 11/29/19 14:11 propoxyphene napsylate Allergy Intermediate nausea Verified 11/29/19 14:11 [From Darvocet-N 100] Sulfa (Sulfonamide Allergy Intermediate rash itch Verified 11/29/19 14:11 Antibiotics) [Sulfa(Sulfonamide Antibiotics)] - Home Medications Home Medications: Ambulatory Orders Calcium Carbonate/Vitamin D3 [Calcium 600-Vit D3 800 Tablet] 600 mg PO BID 04/11 Cholecalciferol (Vitamin D3) [Vitamin D3] 2,000 unit PO DAILY 04/11/15 Levothyroxine [Synthroid -] 50 mcg PO DAILY 04/11/15 Biotin 5,000 mg PO DAILY 10/20/16 Glucosamine-Chondr Plus Sftgel 1,500 mg PO DAILY 10/20/16 Ubidecarenone [Co Q-10] 200 mg PO DAILY 10/20/16 Apixaban [Eliquis -] 5 mg PO BID 30 Days tablet 10/23/16 Valsartan [Diovan] 160 mg PO DAILY #30 tablet 10/23/16 Metoprolol Succinate [Toprol XL -] 50 mg PO HS 10/04/18 Metoprolol Succinate [Toprol XL -] 100 mg PO AM 10/04/18 Nifedipine ER [Procardia XL -] 30 mg PO DAILY 10/04/18 Furosemide 40 tab PO ASDIR 06/03/19 Simvastatin 20 mg PO HS 06/03/19 Family Medical History Family History: Unremarkable Review of Systems - Review of Systems Constitutional: reports: Weakness Eyes: reports: No Symptoms HENT: reports: No Symptoms Neck: reports: No Symptoms Cardiovascular: reports: No Symptoms Respiratory: reports: No Symptoms Gastrointestinal: reports: No Symptoms Genitourinary: reports: No Symptoms Musculoskeletal: reports: No Symptoms Integumentary: reports: No Symptoms Neurological: reports: No Symptoms Endocrine: reports: No Symptoms Hematology/Lymphatic: reports: No Symptoms Psychiatric: reports: No Symptoms Vital Signs: Vital Signs Temperature 98 F 11/30/19 07:00 Pulse Rate 66 11/29/19 20:03 Respiratory Rate 20 11/30/19 07:00 Blood Pressure 124/37 L 11/30/19 07:00 O2 Sat by Pulse Oximetry (%) 96 11/30/19 07:00 Constitutional: Yes: Well Nourished, No Distress, Calm Eyes: Yes: Conjunctiva Clear, EOM Intact HENT: Yes: Atraumatic, Normocephalic Neck: Yes: Supple, Trachea Midline Respiratory: Yes: Regular, CTA Bilaterally Gastrointestinal: Yes: Normal Bowel Sounds, Soft Cardiovascular: Yes: Regular Rate and Rhythm Heart Sounds: Yes: S1, S2 Extremities: No: Cold Edema: No Peripheral Pulses WNL: No Integumentary: No: Bruising Neurological: Yes: Alert, Oriented Psychiatric: No: Agitated - Other Data Labs, Other Data: CBC, BMP 11/30/19 07:12 11/30/19 07:12 INR, PTT INR 1.05 (0.83-1.09) 11/29/19 16:39 Troponin, BNP 11/29/19 11/30/19 14:30 03:25 Troponin I < 0.02 < 0.02 Troponin, BNP 11/29/19 11/30/19 14:30 03:25 Troponin I < 0.02 < 0.02 Assessment/Plan EKG: sinus pat, no ischemic changes presyncope - lightheadedness in shower, unclear if lost consciousness - per pt felt like prior afib episodes initially with skipped beats - EKG sinus pat here - trop neg x 2, EKG no ischemic changes, unlikely ACS - check echo - check orthostatics - monitor on tele [facility] - holding home lasix, received IVF afib - in sinus here - cont metoprolol, eliquis HLD - cont statin HTN - cont home meds hypothyroidism - manage per primary - TSH wnl
[2019-11-30] MEDS: VALSARTAN 160 MG TABLET (UD) PO SCH (11:30)
--- NOTE | 2019-11-30 11:30 | EKG ---
Test Reason : Blood Pressure : / mmHG Vent. Rate : 054 BPM Atrial Rate : 054 BPM P-R Int : 132 ms QRS Dur : 084 ms QT Int : 430 ms P-R-T Axes : 057 015 029 degrees QTc Int : 407 ms POOR DATA QUALITY, INTERPRETATION MAY BE ADVERSELY AFFECTED SINUS BRADYCARDIA OTHERWISE NORMAL ECG WHEN COMPARED WITH ECG OF 21-JUN-2019 15:19, NO SIGNIFICANT CHANGE WAS FOUND Confirmed by Lai Dela Cruz MD ([id number]) on 11/30/2019 11:29:53 AM Referred By: Confirmed By:Lai Dela Cruz MD
[2019-11-30] MEDS: NIFEdipine E.R. 30 MG TABLET PO SCH (11:31)
--- NOTE | 2019-11-30 13:21 | PN ---
Progress Note, Physician Chief Complaint: Syncope Afib History of Present Illness: Previous notes and events reviewed awake and alert NAD complain of feeling weak and tired complain of pain to lower back denies chest pain or SOB - Current Medication List Current Medications: Active Medications Acetaminophen (Tylenol -) 650 mg PO Q6H PRN PRN Reason: PAIN LEVEL 6-10 Last Admin: 11/29/19 21:13 Dose: 650 mg Apixaban (Eliquis -) 5 mg PO BID [facility] Last Admin: 11/30/19 09:30 Dose: Not Given Atorvastatin Calcium (Lipitor -) 10 mg PO HS [facility] Last Admin: 11/30/19 01:48 Dose: 10 mg Cholecalciferol (Vitamin D3 -) 2,000 unit PO DAILY [facility] Last Admin: 11/30/19 09:31 Dose: 2,000 unit Sodium Chloride (Normal Saline -) 1,000 mls @ 42 mls/hr IV ASDIR [facility] Last Admin: 11/29/19 14:50 Dose: 42 mls/hr Levothyroxine Sodium (Synthroid -) 50 mcg PO DAILY@0700 [facility] Last Admin: 11/30/19 07:18 Dose: 50 mcg Nifedipine (Procardia Xl -) 30 mg PO DAILY [facility] Last Admin: 11/30/19 11:31 Dose: 30 mg Valsartan (Diovan -) 160 mg PO DAILY [facility] Last Admin: 11/30/19 11:30 Dose: 160 mg - Objective Vital Signs: Vital Signs Temperature 98.2 F 11/30/19 10:20 Pulse Rate 74 11/30/19 10:20 Respiratory Rate 20 11/30/19 10:20 Blood Pressure 138/48 L 11/30/19 10:20 O2 Sat by Pulse Oximetry (%) 96 11/30/19 07:00 Constitutional: Yes: No Distress, Calm Eyes: Yes: Conjunctiva Clear HENT: Yes: Atraumatic Cardiovascular: Yes: Pulse Irregular Respiratory: Yes: Regular, Diminished Gastrointestinal: Yes: Normal Bowel Sounds, Soft Musculoskeletal: Yes: Back Pain, Muscle Weakness Extremities: Yes: WNL, Erythema Edema: No Neurological: Yes: Alert, Oriented Psychiatric: Yes: Alert, Oriented Labs: CBC, BMP 11/30/19 07:12 11/30/19 07:12 INR, PTT INR 1.05 (0.83-1.09) 11/29/19 16:39 Problem List - Problems (1) Syncope and collapse Assessment/Plan: -Cardiology on board -Echocardiogram -Tele monitoring -trop neg x 2 -Head CT scan shows mild to moderate volume loss and probable mild periventricular chronic microvascular ischemic disease changes, no gross acute intracranial pathology is identified -fall precaution -PT -Neuro checks q4h Code(s): R55 - SYNCOPE AND COLLAPSE (2) Back pain Assessment/Plan: -Sacral Xray -tylenol prn for pain Code(s): M54.9 - DORSALGIA, UNSPECIFIED (3) Hyperlipidemia Assessment/Plan: -Atorvastain Code(s): E78.5 - HYPERLIPIDEMIA, UNSPECIFIED Qualifiers: Hyperlipidemia type: pure hypercholesterolemia Qualified Code(s): E78.00 - Pure hypercholesterolemia, unspecified; E78.0 - Pure hypercholesterolemia (4) Hypertension Assessment/Plan: -Diovan, Nifedipine -low Na diet Code(s): I10 - ESSENTIAL (PRIMARY) HYPERTENSION Qualifiers: Hypertension type: essential hypertension Qualified Code(s): I10 - Essential (primary) hypertension (5) Hypothyroidism Assessment/Plan: -Levothyroxine -TSH 2.01 Problems reviewed: Yes Code(s): E03.9 - HYPOTHYROIDISM, UNSPECIFIED Qualifiers: Hypothyroidism type: unspecified Qualified Code(s): E03.9 - Hypothyroidism , unspecified (6) Paroxysmal atrial fibrillation Assessment/Plan: -Eliquis -Metoprolol for rate control Code(s): I48.0 - PAROXYSMAL ATRIAL FIBRILLATION Assessment/Plan see problem list dvt ppx
[2019-11-30] MEDS ORDERED: ACETAMINOPHEN 325 MG TABLET (FP) ONE (13:42)
[2019-11-30] MEDS: ACETAMINOPHEN 325 MG TABLET (FP) PO PRN ×2 (13:59→21:19)
[2019-11-30] MEDS: SODIUM CHLORIDE 1,000 ML IV SCH (15:23)
[2019-12-01] MEDS: LEVOTHYROXINE NA 50 MCG TABLET (FP) PO SCH (06:07)
[2019-12-01] MEDS: ACETAMINOPHEN 325 MG TABLET (FP) PO PRN ×3 (06:07→21:55)
[2019-12-01 06:30] LABS: PH,URINE 7.5 (5.0-8.0); URINE APPEARANCE CLEAR; URINE BILIRUBIN NEGATIVE (NEGATIVE); URINE COLOR YELLOW; URINE GLUCOSE (UA) NEGATIVE (NEGATIVE); URINE KETONE NEGATIVE (NEGATIVE); URINE LEUK ESTERASE NEGATIVE (NEGATIVE); URINE NITRITE NEGATIVE (NEGATIVE); URINE PROTEIN NEGATIVE (NEGATIVE); URINE UROBILINOGEN 0.2 mg/dL (0.2-1.0)
[2019-12-01 06:52] LABS: HEMATOCRIT 29.9 % (32.4-45.2); MCH 34.7 pg (25.7-33.7); MCHC 33.4 g/dl (32.0-36.0); MEAN CELL VOLUME 103.8 fl (80-96); PLATELET COUNT 336 K/MM3 (134-434); RBC 2.88 M/mm3 (3.60-5.2); WHITE BLOOD COUNT 6.1 K/mm3 (4.0-10.0)
[2019-12-01 07:22] LABS: ALBUMIN 2.8 g/dl (3.4-5.0); BILIRUBIN,TOTAL 0.8 mg/dL (0.2-1); BLOOD UREA NITROGEN 16.1 mg/dL (7-18); CALCIUM 8.1 mg/dL (8.5-10.1); CREATININE 0.8 mg/dL (0.55-1.3); TOT PROT 5.6 g/dl (6.4-8.2)
[2019-12-01] MEDS: APIXABAN 5 MG TABLET PO SCH ×2 (10:21→21:36)
[2019-12-01] MEDS: VALSARTAN 160 MG TABLET (UD) PO SCH (10:21)
[2019-12-01] MEDS: CHOLECALCIFEROL (VIT D3) 1,000 UNIT (25 MCG) TABLET PO SCH (10:22)
[2019-12-01] MEDS: NIFEdipine E.R. 30 MG TABLET PO SCH (10:22)
[2019-12-01] MEDS: SODIUM CHLORIDE 1,000 ML IV SCH ×2 (10:24→14:48)
--- NOTE | 2019-12-01 10:31 | PN ---
Progress Note, Physician Chief Complaint: Syncope Afib History of Present Illness: Previous notes and events reviewed awake and alert NAD patient states feeling better denies chest pain or SOB sts lower back pain is improving no further reports of diarrhea - Current Medication List Current Medications: Active Medications Acetaminophen (Tylenol -) 650 mg PO Q6H PRN PRN Reason: PAIN LEVEL 6-10 Last Admin: 12/01/19 06:07 Dose: 650 mg Apixaban (Eliquis -) 5 mg PO BID [facility] Last Admin: 12/01/19 10:21 Dose: 5 mg Atorvastatin Calcium (Lipitor -) 10 mg PO HS [facility] Last Admin: 11/30/19 21:19 Dose: 10 mg Cholecalciferol (Vitamin D3 -) 2,000 unit PO DAILY [facility] Last Admin: 12/01/19 10:22 Dose: 2,000 unit Sodium Chloride (Normal Saline -) 1,000 mls @ 42 mls/hr IV ASDIR [facility] Last Admin: 12/01/19 10:24 Dose: 42 mls/hr Levothyroxine Sodium (Synthroid -) 50 mcg PO DAILY@0700 [facility] Last Admin: 12/01/19 06:07 Dose: 50 mcg Metoprolol Succinate (Toprol Xl -) 100 mg PO AM [facility] Last Admin: 12/01/19 06:07 Dose: 100 mg Nifedipine (Procardia Xl -) 30 mg PO DAILY [facility] Last Admin: 12/01/19 10:22 Dose: 30 mg Valsartan (Diovan -) 160 mg PO DAILY [facility] Last Admin: 12/01/19 10:21 Dose: 160 mg - Objective Vital Signs: Vital Signs Temperature 98.2 F 12/01/19 06:00 Pulse Rate 68 12/01/19 06:00 Respiratory Rate 18 12/01/19 06:00 Blood Pressure 139/61 12/01/19 06:00 O2 Sat by Pulse Oximetry (%) 97 11/30/19 20:22 Constitutional: Yes: No Distress, Calm, Obese Eyes: Yes: Conjunctiva Clear HENT: Yes: Atraumatic Cardiovascular: Yes: Regular Rate and Rhythm Respiratory: Yes: Regular, CTA Bilaterally Gastrointestinal: Yes: Normal Bowel Sounds, Soft, Abdomen, Obese Musculoskeletal: Yes: Muscle Weakness Extremities: Yes: WNL Edema: No Neurological: Yes: Alert, Oriented Psychiatric: Yes: Alert, Oriented Labs: CBC, BMP 12/01/19 05:20 12/01/19 05:20 INR, PTT INR 1.05 (0.83-1.09) 11/29/19 16:39 Problem List - Problems (1) Syncope and collapse Assessment/Plan: -Cardiology on board -Echocardiogram -Tele monitoring -trop neg x 2 -Head CT scan shows mild to moderate volume loss and probable mild periventricular chronic microvascular ischemic disease changes, no gross acute intracranial pathology is identified -fall precaution -PT -Neuro checks q4h Code(s): R55 - SYNCOPE AND COLLAPSE (2) Back pain Assessment/Plan: -Sacral Xray shows moderately severe degenrative disc disease L1-L2 level -tylenol prn for pain Code(s): M54.9 - DORSALGIA, UNSPECIFIED (3) Hyperlipidemia Assessment/Plan: -Atorvastain Code(s): E78.5 - HYPERLIPIDEMIA, UNSPECIFIED Qualifiers: Hyperlipidemia type: pure hypercholesterolemia Qualified Code(s): E78.00 - Pure hypercholesterolemia, unspecified; E78.0 - Pure hypercholesterolemia (4) Hypertension Assessment/Plan: -Diovan, Nifedipine -low Na diet Code(s): I10 - ESSENTIAL (PRIMARY) HYPERTENSION Qualifiers: Hypertension type: essential hypertension Qualified Code(s): I10 - Essential (primary) hypertension (5) Hypothyroidism Assessment/Plan: -Levothyroxine -TSH 2.01 Code(s): E03.9 - HYPOTHYROIDISM, UNSPECIFIED Qualifiers: Hypothyroidism type: unspecified Qualified Code(s): E03.9 - Hypothyroidism , unspecified (6) Paroxysmal atrial fibrillation Assessment/Plan: -Eliquis -Metoprolol for rate control Code(s): I48.0 - PAROXYSMAL ATRIAL FIBRILLATION Assessment/Plan see problem list dvt ppx when receive Echo results will begin d/c planning
--- NOTE | 2019-12-01 12:27 | PN ---
Progress Note (short form) - Note Progress Note: s: no chest pain, palps, dizziness, dyspnea Current Medications Acetaminophen (Tylenol -) 650 mg PO Q6H PRN PRN Reason: PAIN LEVEL 6-10 Last Admin: 12/01/19 06:07 Dose: 650 mg Apixaban (Eliquis -) 5 mg PO BID [facility] Last Admin: 12/01/19 10:21 Dose: 5 mg Atorvastatin Calcium (Lipitor -) 10 mg PO HS [facility] Last Admin: 11/30/19 21:19 Dose: 10 mg Cholecalciferol (Vitamin D3 -) 2,000 unit PO DAILY [facility] Last Admin: 12/01/19 10:22 Dose: 2,000 unit Sodium Chloride (Normal Saline -) 1,000 mls @ 42 mls/hr IV ASDIR [facility] Last Admin: 12/01/19 10:24 Dose: 42 mls/hr Levothyroxine Sodium (Synthroid -) 50 mcg PO DAILY@0700 [facility] Last Admin: 12/01/19 06:07 Dose: 50 mcg Metoprolol Succinate (Toprol Xl -) 100 mg PO AM [facility] Last Admin: 12/01/19 06:07 Dose: 100 mg Nifedipine (Procardia Xl -) 30 mg PO DAILY [facility] Last Admin: 12/01/19 10:22 Dose: 30 mg Valsartan (Diovan -) 160 mg PO DAILY [facility] Last Admin: 12/01/19 10:21 Dose: 160 mg Vital Signs Period Temp Pulse Resp BP Sys/Mcghee Pulse Ox Last 24 Hr 98.1 F-98.4 F 62-78 18-20 105-139/39-76 97-100 Constitutional: Yes: Well Nourished, No Distress, Calm Eyes: Yes: Conjunctiva Clear, EOM Intact HENT: Yes: Atraumatic, Normocephalic Neck: Yes: Supple, Trachea Midline Respiratory: Yes: Regular, CTA Bilaterally Gastrointestinal: Yes: Normal Bowel Sounds, Soft Cardiovascular: Yes: Regular Rate and Rhythm Heart Sounds: Yes: S1, S2 Extremities: No: Cold Edema: No Peripheral Pulses WNL: No Integumentary: No: Bruising Neurological: Yes: Alert, Oriented Psychiatric: No: Agitated Assessment/Plan EKG: sinus pat, no ischemic changes presyncope - lightheadedness in shower, unclear if lost consciousness - per pt felt like prior afib episodes initially with skipped beats - EKG sinus pat here - trop neg x 2, EKG no ischemic changes, unlikely ACS - echo pending - check orthostatics - monitor on tele - if echo benign, no further cardiac testing as inpatient. has follow up scheduled with Dr. Sheikh BENTON - holding home lasix, received IVF afib - in sinus here - cont metoprolol, eliquis HLD - cont statin HTN - cont home meds hypothyroidism - manage per primary - TSH wnl
[2019-12-01] MEDS ORDERED: LIDOCAINE 5% TOPICAL PATCH TP ONE (20:51)
[2019-12-01] MEDS ORDERED: traMADol HCL 50 MG TABLET PO ONE (20:57)
[2019-12-01] MEDS: ATORVASTATIN CA 10 MG TABLET (FP) PO SCH (21:36)
[2019-12-01] MEDS ORDERED: LIDOCAINE PATCH REMOVAL MC SCH (22:00)
[2019-12-02] MEDS: LEVOTHYROXINE NA 50 MCG TABLET (FP) PO SCH (06:00)
[2019-12-02] MEDS: APIXABAN 5 MG TABLET PO SCH (10:33)
[2019-12-02] MEDS: NIFEdipine E.R. 30 MG TABLET PO SCH (10:33)
[2019-12-02] MEDS: CHOLECALCIFEROL (VIT D3) 1,000 UNIT (25 MCG) TABLET PO SCH (10:33)
[2019-12-02] MEDS: VALSARTAN 160 MG TABLET (UD) PO SCH (10:35)
--- NOTE | 2019-12-02 10:44 | PN ---
Progress Note (short form) - Note Progress Note: s: no chest pain, palps, dizziness, dyspnea Current Medications Generic Name Dose Route Start Last Admin Trade Name Federicoq PRN Reason Stop Dose Admin Acetaminophen 650 mg 11/29/19 21:09 12/01/19 21:55 Tylenol - PO 650 mg Q6H PRN Administration PAIN LEVEL 6-10 Apixaban 5 mg 11/30/19 01:15 12/02/19 10:33 Eliquis - PO 5 mg BID [facility] Administration Atorvastatin Calcium 10 mg 11/30/19 01:45 12/01/19 21:36 Lipitor - PO 10 mg HS [facility] Administration Cholecalciferol 2,000 unit 11/30/19 10:00 12/02/19 10:33 Vitamin D3 - PO 2,000 unit DAILY [facility] Administration Sodium Chloride 1,000 mls @ 42 mls/hr 11/29/19 14:15 12/01/19 14:48 Normal Saline - IV 42 mls/hr ASDIR [facility] Administration Levothyroxine Sodium 50 mcg 11/30/19 07:00 12/02/19 06:00 Synthroid - PO 50 mcg DAILY@0700 [facility] Administration Metoprolol Succinate 100 mg 12/01/19 07:00 12/02/19 06:00 Toprol Xl - PO 100 mg AM [facility] Administration Miscellaneous 1 each 12/01/19 22:00 12/01/19 21:56 Lidoderm Patch Removal MC Not Given DAILY@2200 [facility] Nifedipine 30 mg 11/30/19 10:00 12/02/19 10:33 Procardia Xl - PO 30 mg DAILY [facility] Administration Valsartan 160 mg 11/30/19 10:00 12/02/19 10:35 Diovan - PO 160 mg DAILY [facility] Administration Vital Signs Period Temp Pulse Resp BP Sys/Mcghee Pulse Ox Last 24 Hr 97.8 F-98.6 F 62-71 16-20 119-143/53-65 95-98 Constitutional: Yes: Well Nourished, No Distress, Calm Eyes: Yes: Conjunctiva Clear, EOM Intact HENT: Yes: Atraumatic, Normocephalic Neck: Yes: Supple, Trachea Midline Respiratory: Yes: Regular, CTA Bilaterally Gastrointestinal: Yes: Normal Bowel Sounds, Soft Cardiovascular: Yes: Regular Rate and Rhythm Heart Sounds: Yes: S1, S2 Extremities: No: Cold Edema: No Peripheral Pulses WNL: No Integumentary: No: Bruising Neurological: Yes: Alert, Oriented Psychiatric: No: Agitated CBC, BMP 12/01/19 05:20 12/01/19 05:20 Assessment/Plan tele: sr, brief atrial run EKG: sinus pat, no ischemic changes presyncope - lightheadedness in shower, unclear if lost consciousness - per pt felt like prior afib episodes initially with skipped beats - EKG sinus pat here, tele unremarkable. - trop neg x 2, EKG no ischemic changes, unlikely ACS - echo pending - if echo benign, no further cardiac testing as inpatient. has follow up scheduled with Dr. Sheikh BENTON - holding home lasix, received IVF afib - in sinus here - cont metoprolol, eliquis HLD - cont statin HTN - cont home meds hypothyroidism - manage per primary - TSH wnl
[2019-12-02] MEDS ORDERED: traMADol HCL 50 MG TABLET PO PRN (11:16)
[2019-12-02] MEDS ORDERED: ACETAMINOPHEN 500 MG TABLET (FP) PO PRN (11:16)
--- NOTE | 2019-12-02 11:18 | PN ---
Progress Note, Physician Chief Complaint: Presyncopal episode History of Present Illness: NAD in bed Denies any chest pain, SOB, dizziness or light headedness Just had Echo - Current Medication List Current Medications: Active Medications Acetaminophen (Tylenol -) 650 mg PO Q6H PRN PRN Reason: PAIN LEVEL 6-10 Last Admin: 12/01/19 21:55 Dose: 650 mg Apixaban (Eliquis -) 5 mg PO BID [facility] Last Admin: 12/02/19 10:33 Dose: 5 mg Atorvastatin Calcium (Lipitor -) 10 mg PO HS [facility] Last Admin: 12/01/19 21:36 Dose: 10 mg Cholecalciferol (Vitamin D3 -) 2,000 unit PO DAILY [facility] Last Admin: 12/02/19 10:33 Dose: 2,000 unit Sodium Chloride (Normal Saline -) 1,000 mls @ 42 mls/hr IV ASDIR [facility] Last Admin: 12/01/19 14:48 Dose: 42 mls/hr Levothyroxine Sodium (Synthroid -) 50 mcg PO DAILY@0700 [facility] Last Admin: 12/02/19 06:00 Dose: 50 mcg Metoprolol Succinate (Toprol Xl -) 100 mg PO AM [facility] Last Admin: 12/02/19 06:00 Dose: 100 mg Miscellaneous (Lidoderm Patch Removal) 1 each MC DAILY@2200 [facility] Last Admin: 12/01/19 21:56 Dose: Not Given Nifedipine (Procardia Xl -) 30 mg PO DAILY [facility] Last Admin: 12/02/19 10:33 Dose: 30 mg Valsartan (Diovan -) 160 mg PO DAILY [facility] Last Admin: 12/02/19 10:35 Dose: 160 mg - Objective Vital Signs: Vital Signs Temperature 98 F 12/02/19 10:00 Pulse Rate 67 12/02/19 10:00 Respiratory Rate 20 12/02/19 10:00 Blood Pressure 127/65 12/02/19 10:00 O2 Sat by Pulse Oximetry (%) 95 12/01/19 21:00 Constitutional: Yes: Well Nourished, No Distress, Calm, Obese Cardiovascular: Yes: Regular Rate and Rhythm Respiratory: Yes: Regular Gastrointestinal: Yes: Normal Bowel Sounds, Soft, Abdomen, Obese Genitourinary: Yes: WNL Musculoskeletal: Yes: Muscle Weakness Extremities: Yes: WNL Edema: No Peripheral Pulses WNL: Yes Neurological: Yes: Alert, Oriented Psychiatric: Yes: Alert, Oriented Labs: CBC, BMP 12/01/19 05:20 12/01/19 05:20 INR, PTT INR 1.05 (0.83-1.09) 11/29/19 16:39 Problem List - Problems (1) Syncope and collapse Assessment/Plan: -Seen by cardiology -Echo done this AM -orthostatic BP negative -Okay to be discharged if echo okay Problems reviewed: Yes Code(s): R55 - SYNCOPE AND COLLAPSE (2) Back pain Assessment/Plan: -Acetaminophen 1000 mg po Q6h PRN -tramadol 50 mg po Q6H PRN (has tried it outpatient without any side effects) -Lidoderm patch, can be switched to salon pas with lidocaine OTC -Instructed patient, above can be tried in combination for better pain control if needed Problems reviewed: Yes Code(s): M54.9 - DORSALGIA, UNSPECIFIED (3) Anemia Assessment/Plan: -Stool Guaiac negative -H/H improved -Iron studies can be check o/p -No overt bleeding at this time Problems reviewed: Yes Code(s): D64.9 - ANEMIA, UNSPECIFIED Assessment/Plan see problem list lives at home with her PT evaluation
--- NOTE | 2019-12-02 12:37 | ECHO ---
Name: GORDO ANNABEL Exam:Adult Echocardiogram Study Date: 12/02/2019 09:07 AM Age: 79 yrs Height: 62 in Weight: 200 lb BSA: 1.9 m2 MMode/2D Measurements & Calculations IVSd: 1.1 cm Ao root diam: 2.5 cm LVIDd: 3.7 cm LA dimension: 4.2 cm LVIDs: 2.6 cm ACS: 1.4 cm LVPWd: 1.1 cm EDV(Teich): 57.8 ml LVOT diam: 1.8 cm ESV(Teich): 23.9 ml RV S Audi: 12.6 cm/sec Doppler Measurements & Calculations MV E max audi: 115.7 cm/sec Ao V2 max: 211.7 cm/sec MV A max audi: 119.5 cm/sec Ao max P.9 mmHg MV E/A: 0.97 Ao V2 mean: 156.2 cm/sec MV dec time: 0.19 sec Ao mean P.3 mmHg Ao V2 VTI: 50.6 cm YASSINE(I,D): 1.8 cm2 AI P1/2t: 454.2 msec YASSINE(V,D): 1.7 cm2 AI max audi: 263.9 cm/sec LV V1 max P.9 mmHg AI max P.9 mmHg LV V1 mean P.8 mmHg AI dec slope: 170.2 cm/sec2 LV V1 max: 148.8 cm/sec LV V1 mean: 100.5 cm/sec LV V1 VTI: 37.8 cm MR max audi: 285.0 cm/sec SV(LVOT): 91.2 ml MR max P.8 mmHg TR max audi: 267.9 cm/sec PA V2 max: 75.5 cm/sec TR max P.0 mmHg PA max P.3 mmHg PI end-d audi: 126.2 cm/sec Med Peak E' Audi: 6.1 cm/sec Med E/e': 18.9 Lat Peak E' Audi: 8.4 cm/sec Lat E/e': 13.8 Procedure A complete two-dimensional transthoracic echocardiogram was performed (2D, M-mode, Doppler and color flow Doppler). Left Ventricle The left ventricular size, thickness and function are normal. The left ventricular ejection fraction is normal. Ejection Fraction = 60-65%. The left ventricular wall motion is normal. Right Ventricle The right ventricle is normal in size and function. Atria Normal left and right atrial size and function. Mitral Valve There is trace mitral regurgitation. Tricuspid Valve There is trace tricuspid regurgitation. Right ventricular systolic pressure is normal. Aortic Valve Mild valvular aortic stenosis. No aortic regurgitation is present. Pulmonic Valve Trace pulmonic valvular regurgitation. Great Vessels The aortic root is normal size. Pericardium/Pleura There is no pericardial effusion. Interpretation Summary The left ventricular size, thickness and function are normal The right ventricle is normal in size and function. There is trace mitral regurgitation. There is trace tricuspid regurgitation. Mild valvular aortic stenosis. Trace pulmonic valvular regurgitation. MD Krish Calle 12/02/2019 12:37 PM
[2019-12-02] MEDS ORDERED: FUROSEMIDE 40 MG/4 ML INJECTABLE VIAL IVPUSH ONE (14:42)
--- NOTE | 2019-12-02 14:43 | DS ---
Physical Examination Vital Signs: Vital Signs Temperature 98.2 F 12/02/19 14:00 Pulse Rate 65 12/02/19 14:00 Respiratory Rate 20 12/02/19 14:00 Blood Pressure 162/101 H 12/02/19 14:00 O2 Sat by Pulse Oximetry (%) 95 12/02/19 09:00 Findings/Remarks: This is a 79 y/o woman with a PMHx of HTN, HLD, paroxysmal Atrial Fibrillation ( on eliquis), DVTs, s/p Right Carotid Endarterectomy (08/2019), Hypothyroidism, Pulmonary Hypertension. Who presents to the ED for a presyncopal episode. Patient report at 11 am while showering shedanial felt a sudden prodrom of dizziness , attempted to use the grab bar to hold her dself up however, was unable to do so and slowly fell to the floor. Denies CP/palpitations/SOB prior to or after the event, denies hitting head, changes in vision, confusion, neck pain/pain or injury to any part of her body, F/C/N/V, confusion, weakness or sensory changes to 1 side of her body. Denies changes in bowel or bladder habits Pt admits to recent diagnosis of asthmatic bronchitis by PCP Dr. Gonzales, treated with steroids and Azithro with improvement of symptoms and F/U appointment with PCP states cleared episode. Constitutional: Yes: Well Nourished, No Distress, Calm, Obese Cardiovascular: Yes: Regular Rate and Rhythm Respiratory: Yes: Regular Gastrointestinal: Yes: Normal Bowel Sounds, Soft, Abdomen, Obese Renal/: Yes: WNL Musculoskeletal: Yes: WNL Extremities: Yes: WNL Edema: No Peripheral Pulses WNL: Yes Neurological: Yes: Alert, Oriented Psychiatric: Yes: Alert, Oriented Labs: CBC, BMP 12/01/19 05:20 12/01/19 05:20 Discharge Summary Problems reviewed: Yes Reason For Visit: SYNCOPE AND COLLAPSE Current Active Problems Anemia (Acute) Syncope and collapse (Acute) Condition: Stable - Instructions Diet, Activity, Other Instructions: Please follow up with Dr Matt Botello outpatient within next 2 weeks Referrals: Surinder Gonzales MD [Primary Care Provider] - Matt Botello MD [Staff Physician] - Disposition: VNS/HOME HEALTH CARE - Home Medications Comprehensive Discharge Medication List: Ambulatory Orders Calcium Carbonate/Vitamin D3 [Calcium 600-Vit D3 800 Tablet] 600 mg PO BID 04/11 Cholecalciferol (Vitamin D3) [Vitamin D3] 2,000 unit PO DAILY 04/11/15 Levothyroxine [Synthroid -] 50 mcg PO DAILY 04/11/15 Biotin 5,000 mg PO DAILY 10/20/16 Glucosamine-Chondr Plus Sftgel 1,500 mg PO DAILY 10/20/16 Ubidecarenone [Co Q-10] 200 mg PO DAILY 10/20/16 Apixaban [Eliquis -] 5 mg PO BID 30 Days tablet 10/23/16 Valsartan [Diovan] 160 mg PO DAILY #30 tablet 10/23/16 Metoprolol Succinate [Toprol XL -] 50 mg PO HS 10/04/18 Metoprolol Succinate [Toprol XL -] 100 mg PO AM 10/04/18 Nifedipine ER [Procardia XL -] 30 mg PO DAILY 10/04/18 Furosemide 40 tab PO ASDIR 06/03/19 Simvastatin 20 mg PO HS 06/03/19 Acetaminophen [Tylenol .Extra-Strength -] 1,000 mg PO Q6H PRN tablet 12/02/19 traMADol HCL [Ultram -] 50 mg PO Q6H PRN #20 tablet MDD 4 12/02/19 Prescription Drug Monitoring Program (I-STOP) results: I-STOP reviewed and no issues identified
[2019-12-02] MEDS: SODIUM CHLORIDE 1,000 ML IV SCH (15:12)
[2019-12-02 18:18] VITALS: BP 116/76; PULSE 74; TEMP 98
== END 2019-12-02 18:45 | disposition home health service (06) | DRG 312 ==
LOC: JER 13:28 → JERBED 19:24 → J4S 12-01 14:06
PROVIDERS: ADMIT Internal Medicine; ATTEND Family Medicine
DX: R55 Syncope and collapse (principal); N17.9 Acute kidney failure, unspecified; D64.9 Anemia, unspecified; I48.0 Paroxysmal atrial fibrillation; E78.5 Hyperlipidemia, unspecified; I10 Essential (primary) hypertension; E03.9 Hypothyroidism, unspecified; M54.9 Dorsalgia, unspecified; E66.9 Obesity, unspecified; Z68.36 Body mass index [BMI] 36.0-36.9, adult
CPT/HCPCS: 36415; 70450-TC; 71045-TC-FY; 72100-TC-FY; 80048; 80053; 80061; 81003; 82272; 82550; 83721; 83735; 84100; 84443; 84484; 85025; 85027; 85610; 85730; 87086; 93005; 93010; 93306-TC; 97116-GP; 97161-GP; 99284-25; 99285-25; J7030

== ENCOUNTER 2020-06-19 15:08 | Emergency (ER) | payer OTHER, MEDICARE ==
[2020-06-19 15:14] VITALS: BP 121/45; PULSE 66; TEMP 98.4; BMI 35.4
[2020-06-19] MEDS ORDERED: ONDANSETRON 4 MG/2 ML VIAL IVPUSH ONE (16:32)
--- NOTE | 2020-06-19 17:01 | PDOC ---
History of Present Illness - General Chief Complaint: Nausea Stated Complaint: NAUSEA Time Seen by Provider: 06/19/20 16:04 History Source: Patient Exam Limitations: No Limitations - History of Present Illness Initial Comments: 06/19/20 16:56 Patient is a 80-year-old female with a history of hypertension, hyperlipidemia, thyroid disease, A. fib and chronic bilateral lower extremity wounds who presents to the ED with complaint of weakness, loss of appetite and intermittent nausea for the last 2 months. The patient states that she was seeing Dr. Gonzales who tried to schedule her for evaluation by cardiology and GI. She has seen Dr. Leary of GI, was sent for CT scan a few days ago and is scheduled for an endoscopy on Friday. She is unable to see Dr. Botello of cardiology because he is quarantined with walking at this time. The patient states that she has an appointment with Dr. Holland tomorrow for a wound check and re-bandaging of her legs. She denies any fevers but states today she had chills. She states she has intermittent waves of nausea without vomiting. She had diarrhea 2 days ago but that has resolved after taking 1 dose of Imodium. Past History - Medical History Allergies/Adverse Reactions: Allergies Allergy/AdvReac Type Severity Reaction Status Date / Time codeine [Codeine] Allergy Intermediate nausea Verified 06/19/20 15:10 propoxyphene napsylate Allergy Intermediate nausea Verified 06/19/20 15:10 [From Darvocet-N 100] Sulfa (Sulfonamide Allergy Intermediate rash itch Verified 06/19/20 15:10 Antibiotics) [Sulfa(Sulfonamide Antibiotics)] Home Medications: Ambulatory Orders Calcium Carbonate/Vitamin D3 [Calcium 600-Vit D3 800 Tablet] 600 mg PO BID 04/11/15 Cholecalciferol (Vitamin D3) [Vitamin D3] 2,000 unit PO DAILY 04/11/15 Levothyroxine [Synthroid -] 50 mcg PO DAILY 04/11/15 Biotin 5,000 mg PO DAILY 10/20/16 Glucosamine-Chondr Plus Sftgel 1,500 mg PO DAILY 10/20/16 Ubidecarenone [Co Q-10] 200 mg PO DAILY 10/20/16 Apixaban [Eliquis -] 5 mg PO BID 30 Days tablet 10/23/16 Valsartan [Diovan] 160 mg PO DAILY #30 tablet 10/23/16 Metoprolol Succinate [Toprol XL -] 50 mg PO HS 10/04/18 Metoprolol Succinate [Toprol XL -] 100 mg PO AM 10/04/18 Nifedipine ER [Procardia XL -] 30 mg PO DAILY 10/04/18 Furosemide 40 tab PO ASDIR 06/03/19 Simvastatin 20 mg PO HS 06/03/19 Acetaminophen [Tylenol .Extra-Strength -] 1,000 mg PO Q6H PRN tablet 12/02/19 traMADol HCL [Ultram -] 50 mg PO Q6H PRN #20 tablet MDD 4 12/02/19 Lidocaine 5% Patch [Lidoderm Patch -] 1 patch TP DAILY 4 Days #4 patch MDD 1 patch 12/03/19 Walker [Ultra-Light Rollator] 1 each MC DAILY 1 Days #1 each 12/03/19 Ondansetron [Zofran *Odt*] 4 mg SL TID PRN #21 od.tablet 06/19/20 Anemia: No Asthma: No Cancer: No Cardiac Disorders: Yes (A Fib) CVA: No COPD: No CHF: No Dementia: No Diabetes: No GI Disorders: No Disorders: No HTN: Yes Hypercholesterolemia: Yes Liver Disease: No Seizures: No Thyroid Disease: Yes - Surgical History Abdominal Surgery: No Appendectomy: No Cardiac Surgery: No (CAROTID ARTERY) Cholecystectomy: Yes Lung Surgery: No Neurologic Surgery: No Orthopedic Surgery: Yes (may knee arthroscopy) - Immunization History TDAP Vaccination: Yes Immunization Up to Date: Yes - Psycho-Social/Smoking History Smoking History: Never smoked Have you smoked in the past 12 months: No - Substance Abuse Hx (Audit-C & DAST Scrn) How often the patient has a drink containing alcohol: Never Score: In Men: 4 or > Positive; In Women: 3 or > Positive: 0 Screen Result (Pos requires Nsg. Audit-10AR): Negative In the last yr the pt used illegal drug/Rx for NonMed reason: No Score: Yes response is considered Positive: 0 Screen Result (Positive result requires Nsg. DAST-10): Negative Review of Systems - Review of Systems Comments:: 06/19/20 16:59 - Review of Systems Able to Perform ROS?: Yes Constitutional: No: Fever, Chills, Loss of Appetite, Night Sweats, positive: Weakness, loss of appetite HEENTM: No: Eye Pain, Vision changes, Ear Pain, Throat Pain, Throat Swelling, Mouth Pain, Difficulty Swallowing Respiratory: No: Cough, Shortness of Breath, Wheezing, Sputum Production Cardiac (ROS): No: Chest Pain, Chest Tightness, Palpitations, Irregular Heart Beat, Edema ABD/GI: No: Vomiting, Abdominal Pain, Diarrhea; positive: Intermittent nausea : No Dysuria, No Hematuria, No Frequency, No Urgency Musculoskeletal: No: Muscle Pain, Back Pain, Joint Pain, Muscle Weakness, Neck Pain Integumentary: No: Lesions, Rash Neurological: No: Headache, Numbness, Tingling, Weakness, Speech Difficulties *Physical Exam - Vital Signs Last Vital Signs Temp Pulse Resp BP Pulse Ox 98.4 F 66 20 121/45 L 100 06/19/20 15:10 06/19/20 15:10 06/19/20 15:10 06/19/20 15:10 06/19/20 15:10 - Physical Exam 06/19/20 17:00 - Physical Exam General Appearance: Nourished, Appropriately Dressed, No Distress HEENT: EOMI, Normal Voice, Hearing Grossly Normal Neck: Supple, No Lymphadenopathy (R), No Lymphadenopathy (L), No Rigidity, No Decreased range of motion Respiratory/Chest: Lungs Clear, Normal Breath Sounds. No Respiratory Distress, No Accessory Muscle Use Cardiovascular: Irregular rhythm with a Regular Rate, S1, S2 Gastrointestinal/Abdominal: Normal Bowel Sounds, Soft. Non-tender, No Guarding, No Rebound, No Rigidity Musculoskeletal: Normal Inspection. No Decreased Range of Motion Extremity: Normal Capillary Refill, Normal Inspection Integumentary: Chronic skin changes to the right lower extremity without bandages appreciated. There is a bandage in place on the left lower extremity. 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 Plan: -CT scan reviewed ordered by Dr. Leary which shows no acute pathology. -The patient is scheduled for an endoscopy in 4 days -Labs ordered -EKG ordered -Will discuss with Dr. Gonzales -Will reassess 06/19/20 18:50 Patient labs still pending. She is having significant pain in her bilateral lower extremities for which she takes tramadol at home. 1 tramadol ordered in the emergency department. Will reassess. 06/19/20 19:39 The patient is feeling well and she states that she would like to go home her labs have been reviewed and there is no significant change from previous visits in the past. He has a follow-up appointment with Dr. Holland for her bilateral lower extremity wounds tomorrow and is having an endoscopy with Dr. Leary in 3 days. We will DC the patient with Zofran ODT. I discussed the case with Dr. Gonzales who understands and agrees with this treatment and plan. The patient will call Dr. Botello's office tomorrow to find out who is covering while he is on quarantine she will schedule an appointment. The patient understands and agrees with this treatment plan and she is stable for discharge. Discharge - Discharge Information Problems reviewed: Yes Clinical Impression/Diagnosis: Weakness, Nausea Condition: Stable Disposition: HOME - Additional Discharge Information Prescriptions: Ondansetron [Zofran *Odt*] 4 mg SL TID PRN #21 od.tablet PRN Reason: Nausea - Follow up/Referral Referrals: Surinder Gonzales MD [Primary Care Provider] - Call tomorrow - Patient Discharge Instructions Patient Printed Discharge Instructions: DI for Muscle Weakness, DI for Nausea -- Adult Additional Instructions: Get plenty of rest and drink plenty of fluids. Follow-up with Dr. Holland to tiburcio as scheduled. Dr. Leary has scheduled an endoscopy for you for this upcoming Friday. I have sent Darius to your pharmacy to help with the nausea. Return to the emergency department for any worsening symptoms. - Post Discharge Activity
[2020-06-19] MEDS ORDERED: traMADol HCL 50 MG TABLET ONE (18:47)
[2020-06-19] MEDS ORDERED: traMADol HCL 50 MG TABLET PO ONE (18:49)
[2020-06-19 18:58] LABS: BASO % 0.4 % (0-2.0); EOS % 1.8 % (0-4.5); HEMOGLOBIN 9.4 GM/dL (10.7-15.3); LYMPH % 73.6 % (8-40); MCH 33.9 pg (25.7-33.7); MCHC 33.6 g/dl (32.0-36.0); MEAN CELL VOLUME 100.9 fl (80-96); MEAN PLT VOLUME 7.3 fl (7.5-11.1); MONO % 6.2 % (3.8-10.2); PLATELET COUNT 418 K/MM3 (134-434); RBC 2.77 M/mm3 (3.60-5.2); RDW 16.9 % (11.6-15.6); WHITE BLOOD COUNT 6.1 K/mm3 (4.0-10.0)
[2020-06-19 19:09] LABS: PH,URINE 5.5 (5.0-8.0); URINE APPEARANCE CLEAR; URINE BILIRUBIN NEGATIVE (NEGATIVE); URINE COLOR YELLOW; URINE GLUCOSE (UA) NEGATIVE (NEGATIVE); URINE KETONE NEGATIVE (NEGATIVE); URINE LEUK ESTERASE NEGATIVE (NEGATIVE); URINE NITRITE NEGATIVE (NEGATIVE); URINE PROTEIN NEGATIVE (NEGATIVE); URINE UROBILINOGEN 0.2 mg/dL (0.2-1.0)
[2020-06-19 19:25] LABS: ALBUMIN 2.8 g/dl (3.4-5.0); ALK PHOS 123 U/L (45-117); ANION GAP 10 MMOL/L (8-16); BILIRUBIN,TOTAL 0.6 mg/dL (0.2-1); BLOOD UREA NITROGEN 18.7 mg/dL (7-18); CALCIUM 8.6 mg/dL (8.5-10.1); CHLORIDE 107 mmol/L (98-107); CO2 23 mmol/L (21-32); CREATININE 0.9 mg/dL (0.55-1.3); GLUCOSE,RANDOM 104 mg/dL (74-106); LIPASE 156 U/L (73-393); POTASSIUM 4.3 mmol/L (3.5-5.1); SGOT/AST 26 U/L (15-37); SGPT/ALT 24 U/L (13-61); SODIUM 140 mmol/L (136-145); TOT PROT 6.7 g/dl (6.4-8.2)
[2020-06-19 19:47] LABS: ANISOCYTOSIS 1+; MACROCYTOSIS 1+; PLATELET ESTIMATE NORMAL
--- NOTE | 2020-06-20 10:30 | EKG ---
Test Reason : Blood Pressure : / mmHG Vent. Rate : 065 BPM Atrial Rate : 065 BPM P-R Int : 148 ms QRS Dur : 088 ms QT Int : 426 ms P-R-T Axes : 028 008 019 degrees QTc Int : 443 ms SINUS RHYTHM WITH PREMATURE ATRIAL COMPLEXES OTHERWISE NORMAL ECG WHEN COMPARED WITH ECG OF 02-DEC-2019 23:32, NO SIGNIFICANT CHANGE WAS FOUND Confirmed by MD Kirill, Rebel ([id number]) on 06/20/2020 10:30:41 AM Referred By: Confirmed By:Rebel Roy MD
== END 2020-06-19 20:44 | disposition home or self-care (01) ==
LOC: JER 15:08
PROC: 3E033GC Introduction of Other Therapeutic Substance into Peripheral Vein, Percutaneous Approach (ICD-10-PCS; principal; 2020-06-19)
DX: R53.1 Weakness (principal); R11.0 Nausea
CPT/HCPCS: 36415; 80053; 81003; 82550; 83690; 84484; 85025; 87086; 93005; 93010; 99284-25

== ENCOUNTER 2020-06-23 11:28 | Day surgery (SDC) | payer OTHER, MEDICARE ==
[2020-06-22 12:16] VITALS: BMI 36.6
[2020-06-23] MEDS ORDERED: LIDOCAINE HCL/PF 2% SDV 5ML VIAL ONE (12:55)
[2020-06-23] MEDS ORDERED: PROPOFOL 20 ML ONE (12:56)
[2020-06-23 16:04] VITALS: PULSE 66; TEMP 98.5
[2020-06-23 16:10] VITALS: BP 118/51
--- NOTE | 2020-06-27 17:05 | PATH ---
Surgical Pathology Report Patient Name: ANNABEL CARO [facility]. Rec. #: [id number] /Age/Gender: 1940 (Age: 80) / F Account: [id number] Location: [facility] Taken: 06/23/2020 Received: 06/23/2020 Reported: 06/27/2020 Physicians: Shara Escalona M.D. Specimen(s) Received A: BX DUODENUM SECOND PORTION B: BX GE JUNCTION C: BX ANTRUM Clinical History Dyspepsia, abdominal pain Postoperative diagnosis: Gastritis, hiatal hernia Final Diagnosis A. SECOND PORTION OF DUODENUM, BIOPSY: DUODENAL MUCOSA WITH NO PATHOLOGIC FINDINGS. B. GE JUNCTION, BIOPSY: ESOPHAGOGASTRIC JUNCTIONAL (SQUAMOCOLUMNAR) MUCOSA SHOWING MILD CHRONIC INFLAMMATION. NEGATIVE FOR INTESTINAL METAPLASIA. C. ANTRUM, BIOPSY: MILD CHRONIC GASTRITIS WITH FEATURES OF REACTIVE GASTROPATHY. IMMUNOSTAIN IS NEGATIVE FOR H. PYLORI ORGANISMS. Electronically Signed Katlyn Brand M.D. Gross Description A. Received in formalin, labeled "second portion of duodenum" is a kellogg, irregular portion of soft tissue measuring 0.3 cm. in greatest dimension. The specimen is submitted in toto in one cassette. B. Received in formalin, labeled "biopsy GE junction" is a kellogg, irregular portion of soft tissue measuring 0.3 cm. in greatest dimension. The specimen is submitted in toto in one cassette. C. Received in formalin, labeled "antrum" is a kellogg, irregular portion of soft tissue measuring 0.8 cm. in greatest dimension. The specimen is submitted in toto in one cassette. 06/23/2020 [facility]06/23/2020
== END 2020-06-23 13:45 | disposition home or self-care (01) ==
LOC: FASU-ENDO 11:28
PROVIDERS: ATTEND Internal Medicine Gastroenterology
PROC: 0DB68ZX Excision of Stomach, Via Natural or Artificial Opening Endoscopic, Diagnostic (ICD-10-PCS; 2020-06-23)
PROC: 0DB48ZX Excision of Esophagogastric Junction, Via Natural or Artificial Opening Endoscopic, Diagnostic (ICD-10-PCS; 2020-06-23)
PROC: 0DB98ZX Excision of Duodenum, Via Natural or Artificial Opening Endoscopic, Diagnostic (ICD-10-PCS; principal; 2020-06-23 12:32)
DX: K29.80 Duodenitis without bleeding (principal); K29.50 Unspecified chronic gastritis without bleeding; K31.9 Disease of stomach and duodenum, unspecified; K44.9 Diaphragmatic hernia without obstruction or gangrene; R10.13 Epigastric pain
CPT/HCPCS: 88305-TC; 88342-TC

== ENCOUNTER 2021-02-15 04:25 | Day surgery (SDC) | payer OTHER, MEDICARE ==
[2021-02-13 10:21] VITALS: BMI 36.0
[2021-02-15] MEDS ORDERED: LIDOCAINE HCL 1%, 10 MG/ML (20ML VIAL) ONE ×2 (07:14→08:08)
[2021-02-15] MEDS ORDERED: AMPICILLIN NA/SULBACTAM NA 3 GM/100 ML PRE-DOCKED IVPB ONE (07:56)
[2021-02-15] MEDS ORDERED: LIDOCAINE HCL 1%, 10 MG/ML (20ML VIAL) PNB ONE ×2 (08:19)
[2021-02-15] MEDS ORDERED: BACITRACIN 50,000 UNITS VIAL TP ONE (08:24)
[2021-02-15] MEDS ORDERED: oxyCODONE HCL 5 MG TABLET PO PRN (09:18)
[2021-02-15] MEDS ORDERED: DEXTROSE 5%-0.45% SALINE 1,000 ML IV SCH (09:30)
[2021-02-15] MEDS ORDERED: ONDANSETRON 4 MG/2 ML VIAL IVPUSH ONE ×2 (10:21)
[2021-02-15] MEDS ORDERED: PROMETHAZINE HCL 25 MG/1 ML VIAL IVPB PRN (10:42)
[2021-02-15] MEDS ORDERED: PROMETHAZINE HCL 25 MG/1 ML VIAL IVPB ONE (10:48)
[2021-02-15] MEDS ORDERED: ONDANSETRON 4 MG/2 ML VIAL IVPUSH PRN (11:33)
[2021-02-15 13:41] VITALS: TEMP 98
[2021-02-15 14:45] VITALS: BP 134/56; PULSE 72
== END 2021-02-15 14:20 | disposition home or self-care (01) ==
LOC: JASU-SURG 04:25
PROVIDERS: ATTEND Urology
PROC: 0JH70MZ Insertion of Stimulator Generator into Back Subcutaneous Tissue and Fascia, Open Approach (ICD-10-PCS; 2021-02-15)
PROC: 0JPT0MZ Removal of Stimulator Generator from Trunk Subcutaneous Tissue and Fascia, Open Approach (ICD-10-PCS; principal; 2021-02-15 07:30)
DX: T85.193A Other mechanical complication of implanted electronic neurostimulator, generator, initial encounter (principal); N32.81 Overactive bladder
CPT/HCPCS: 64590; L8679; 76000-TC-FY; 88300-TC; 88304-TC; 94760

== ENCOUNTER 2021-05-08 02:29 | Observation (INO) | payer OTHER, MEDICARE ==
[2021-05-08] MEDS ORDERED: FAMOTIDINE 20 MG/50 ML IVPB 20 MG/50 ML MG IVPB ONE ×2 (03:16→04:05)
[2021-05-08] MEDS ORDERED: methylPREDNISolone NA SUCC 125 MG/2 ML VIAL IVPUSH ONE (03:16)
[2021-05-08] MEDS ORDERED: methylPREDNISolone NA SUCC 125 MG/2 ML VIAL ONE (03:18)
[2021-05-08 03:37] LABS: BASO % 0.5 % (0-2.0); EOS % 3.7 % (0-4.5); HEMATOCRIT 29.7 % (32.4-45.2); HEMOGLOBIN 10.1 GM/dL (10.7-15.3); LYMPH % 66.9 % (8-40); MCH 33.8 pg (25.7-33.7); MEAN CELL VOLUME 99.5 fl (80-96); MEAN PLT VOLUME 6.6 fl (7.5-11.1); MONO % 8.3 % (3.8-10.2); NEUT % 20.6 % (42.8-82.8); PLATELET COUNT 408 10^3/uL (134-434); RBC 2.99 M/mm3 (3.60-5.2); RDW 16.4 % (11.6-15.6); WHITE BLOOD COUNT 4.1 K/mm3 (4.0-10.0)
[2021-05-08 03:47] LABS: INR 1.33 (0.83-1.09)
[2021-05-08 03:50] LABS: ACTIVATED PTT 22.9 SECONDS (25.2-36.5)
[2021-05-08 03:55] LABS: CHLORIDE 102 mmol/L (98-107); SODIUM 136 mmol/L (136-145)
[2021-05-08 03:57] LABS: CALCIUM 8.9 mg/dL (8.5-10.1)
[2021-05-08 03:58] LABS: ALBUMIN 3.6 g/dl (3.4-5.0); ANION GAP 10 MMOL/L (8-16); BLOOD UREA NITROGEN 21.6 mg/dL (7-18); CO2 23 mmol/L (21-32); GLUCOSE,RANDOM 99 mg/dL (74-106)
[2021-05-08 04:01] LABS: CREATININE 0.9 mg/dL (0.55-1.3); SGOT/AST 20 U/L (15-37); SGPT/ALT 23 U/L (13-61)
[2021-05-08 04:03] LABS: BILIRUBIN,TOTAL 0.6 mg/dL (0.2-1); TOT PROT 7.5 g/dl (6.4-8.2)
[2021-05-08 04:04] LABS: ALK PHOS 115 U/L (45-117)
[2021-05-08 04:44] LABS: ANISOCYTOSIS 1+; MACROCYTOSIS 1+; PLATELET ESTIMATE NORMAL
[2021-05-08 09:13] LABS: N-TERMINAL BNP 279.1 pg/ml (5-450)
[2021-05-08] MEDS ORDERED: NITROGLYCERIN SUBLINGUAL 1/150 0.4 MG TAB SL PRN (09:45)
[2021-05-08] MEDS ORDERED: FUROSEMIDE 40 MG TABLET (FP) PO SCH (10:00)
[2021-05-08] MEDS ORDERED: MUPIROCIN 2% TOPICAL OINTMENT 22 GM TUBE TP SCH (10:00)
[2021-05-08] MEDS ORDERED: ENOXAPARIN NA (PORCINE) 40 MG/0.4 ML DISP.SYRIN SQ SCH (10:00)
[2021-05-08] MEDS ORDERED: PATIENT'S OWN MEDICATION (NON-FORMULARY) (Ubidecarenone [Co Q-10] 200 MG Capsule) PO SCH (10:00)
[2021-05-08] MEDS ORDERED: BIOTIN PO SCH (10:00)
[2021-05-08] MEDS ORDERED: GLUCOS SUL PO SCH (10:00)
[2021-05-08] MEDS ORDERED: [UNRECOGNIZED DRUG - OTHER] PO SCH (10:00)
[2021-05-08] MEDS: MUPIROCIN 2% TOPICAL OINTMENT 22 GM TUBE TP SCH ×2 (10:39→21:30)
[2021-05-08] MEDS: traMADol HCL 50 MG TABLET PO PRN ×3 (10:44→22:52)
[2021-05-08] MEDS: PANTOPRAZOLE 40 MG TABLET PO SCH (10:46)
[2021-05-08] MEDS: VALSARTAN 160 MG TABLET PO SCH (10:47)
[2021-05-08] MEDS: CHOLECALCIFEROL (VIT D3) 1,000 UNIT (25 MCG) TABLET PO SCH (10:47)
[2021-05-08] MEDS: NIFEdipine E.R. 30 MG TABLET PO SCH (10:47)
[2021-05-08] MEDS: ACETAMINOPHEN 500 MG TABLET (FP) PO PRN ×3 (10:47→22:55)
[2021-05-08] MEDS: APIXABAN 5 MG TABLET PO SCH ×2 (10:47→21:33)
[2021-05-08 11:00] LABS: BASO % 0.2 % (0-2.0); HEMATOCRIT 34.1 % (32.4-45.2); HEMOGLOBIN 11.3 GM/dL (10.7-15.3); LYMPH % 55.1 % (8-40); MCH 33.2 pg (25.7-33.7); MCHC 33.1 g/dl (32.0-36.0); MEAN CELL VOLUME 100.3 fl (80-96); MEAN PLT VOLUME 6.7 fl (7.5-11.1); MONO % 0.8 % (3.8-10.2); NEUT % 43.9 % (42.8-82.8); PLATELET COUNT 432 10^3/uL (134-434); RDW 16.5 % (11.6-15.6); WHITE BLOOD COUNT 3.9 K/mm3 (4.0-10.0)
[2021-05-08 11:21] LABS: CHLORIDE 104 mmol/L (98-107); SODIUM 137 mmol/L (136-145)
[2021-05-08 11:23] LABS: ALBUMIN 3.6 g/dl (3.4-5.0); ANION GAP 11 MMOL/L (8-16); CALCIUM 9.2 mg/dL (8.5-10.1); CO2 22 mmol/L (21-32); GLUCOSE,RANDOM 192 mg/dL (74-106)
[2021-05-08 11:26] LABS: CREATININE 0.9 mg/dL (0.55-1.3); SGPT/ALT 25 U/L (13-61)
[2021-05-08 11:27] LABS: IRON SERUM 120 ug/dL (50-175); SGOT/AST 21 U/L (15-37); TOTAL IRON BINDING CAPACITY 403 ug/dL (250-450)
[2021-05-08 11:28] LABS: BILIRUBIN,TOTAL 0.6 mg/dL (0.2-1)
[2021-05-08 11:29] LABS: ALK PHOS 129 U/L (45-117)
[2021-05-08 11:34] VITALS: BMI 35.2
[2021-05-08] MEDS ORDERED: FUROSEMIDE 40 MG/4 ML INJECTABLE VIAL IVPUSH SCH (14:00)
[2021-05-08] MEDS ORDERED: ATORVASTATIN CA 10 MG TABLET (FP) PO SCH (22:00)
[2021-05-09] MEDS: traMADol HCL 50 MG TABLET PO PRN (06:04)
[2021-05-09] MEDS: ACETAMINOPHEN 500 MG TABLET (FP) PO PRN (06:08)
[2021-05-09] MEDS ORDERED: LEVOTHYROXINE NA 50 MCG TABLET (FP) PO SCH (07:00)
[2021-05-09 07:09] VITALS: PULSE 62; TEMP 97.9
[2021-05-09 07:30] LABS: BASO % 0.1 % (0-2.0); HEMATOCRIT 31.4 % (32.4-45.2); HEMOGLOBIN 10.4 GM/dL (10.7-15.3); LYMPH % 56.4 % (8-40); MCH 33.3 pg (25.7-33.7); MEAN PLT VOLUME 6.9 fl (7.5-11.1); MONO % 7.3 % (3.8-10.2); NEUT % 36.2 % (42.8-82.8); PLATELET COUNT 429 10^3/uL (134-434); RBC 3.11 M/mm3 (3.60-5.2); RDW 16.7 % (11.6-15.6); WHITE BLOOD COUNT 5.4 K/mm3 (4.0-10.0)
[2021-05-09 07:47] LABS: CHLORIDE 107 mmol/L (98-107); SODIUM 140 mmol/L (136-145)
[2021-05-09 07:50] LABS: ANION GAP 7 MMOL/L (8-16); BLOOD UREA NITROGEN 22.3 mg/dL (7-18); CALCIUM 8.8 mg/dL (8.5-10.1); CO2 26 mmol/L (21-32)
[2021-05-09 07:54] LABS: CREATININE 0.8 mg/dL (0.55-1.3)
[2021-05-09 07:55] LABS: GLUCOSE,RANDOM 109 mg/dL (74-106)
[2021-05-09] MEDS: VALSARTAN 160 MG TABLET PO SCH ×2 (08:08→13:14)
[2021-05-09] MEDS ORDERED: REGADENOSON 0.4 MG/5 ML PRE-FILLED SYRINGE IVPUSH ONE ×2 (09:54→10:00)
[2021-05-09] MEDS ORDERED: FUROSEMIDE 40 MG TABLET (FP) PO SCH (10:00)
[2021-05-09] MEDS: CHOLECALCIFEROL (VIT D3) 1,000 UNIT (25 MCG) TABLET PO SCH (13:09)
[2021-05-09] MEDS: NIFEdipine E.R. 30 MG TABLET PO SCH (13:09)
[2021-05-09] MEDS: PANTOPRAZOLE 40 MG TABLET PO SCH (13:09)
[2021-05-09] MEDS: APIXABAN 5 MG TABLET PO SCH (13:10)
[2021-05-09] MEDS: MUPIROCIN 2% TOPICAL OINTMENT 22 GM TUBE TP SCH (13:12)
[2021-05-09 14:48] VITALS: BP 149/65
== END 2021-05-09 18:48 | disposition home or self-care (01) ==
LOC: JER 02:29 → JERBED 05:02 → J4S 09:11
PROVIDERS: ADMIT Hospitalist; ATTEND Family Medicine
PROC: 3E033GC Introduction of Other Therapeutic Substance into Peripheral Vein, Percutaneous Approach (ICD-10-PCS; principal; 2021-05-08)
PROC: 3E033NZ Introduction of Analgesics, Hypnotics, Sedatives into Peripheral Vein, Percutaneous Approach (ICD-10-PCS; 2021-05-08)
PROC: 3E033GC Introduction of Other Therapeutic Substance into Peripheral Vein, Percutaneous Approach (ICD-10-PCS; 2021-05-08)
DX: R07.89 Other chest pain (principal); R60.9 Edema, unspecified; E78.5 Hyperlipidemia, unspecified; I10 Essential (primary) hypertension; I48.0 Paroxysmal atrial fibrillation; L03.116 Cellulitis of left lower limb; L03.115 Cellulitis of right lower limb; Z79.01 Long term (current) use of anticoagulants; E03.9 Hypothyroidism, unspecified; D64.9 Anemia, unspecified; I65.22 Occlusion and stenosis of left carotid artery
CPT/HCPCS: 36415; 70490-TC; 71250-TC; 78452-TC; 80048; 80053; 82550; 82728; 83540; 83550; 83880; 84443; 84484; 85025; 85610; 85730; 93005; 93010; 93017; 93306-TC; 96365; 96375; 99285-25; A9502; C9803; G0378; J2785; U0003; U0005

== ENCOUNTER 2021-06-28 08:21 | Inpatient (IN) | payer OTHER, MEDICARE ==
[2021-06-28] MEDS ORDERED: VANCOMYCIN HCL 1,500 MG in DEXTROSE 5%-WATER - 500 ML IVPB ONE (09:48)
[2021-06-28] MEDS ORDERED: ACETAMINOPHEN 1000 MG/100 ML VIAL (NON FORMULARY) IVPB ONE (09:57)
[2021-06-28 10:42] LABS: BASO % 0.3 % (0-2.0); EOS % 2.3 % (0-4.5); HEMATOCRIT 29.6 % (32.4-45.2); HEMOGLOBIN 10.1 GM/dL (10.7-15.3); LYMPH % 52.6 % (8-40); MCH 33.9 pg (25.7-33.7); MEAN CELL VOLUME 99.9 fl (80-96); MEAN PLT VOLUME 6.4 fl (7.5-11.1); MONO % 5.4 % (3.8-10.2); NEUT % 39.4 % (42.8-82.8); PLATELET COUNT 382 10^3/uL (134-434); RBC 2.96 M/mm3 (3.60-5.2); RDW 16.8 % (11.6-15.6); WHITE BLOOD COUNT 7.5 K/mm3 (4.0-10.0)
[2021-06-28 11:08] LABS: ALBUMIN 3.2 g/dl (3.4-5.0); BLOOD UREA NITROGEN 22.2 mg/dL (7-18)
[2021-06-28 11:10] LABS: CALCIUM 8.9 mg/dL (8.5-10.1)
[2021-06-28 11:11] LABS: CREATININE 0.8 mg/dL (0.55-1.3)
[2021-06-28 11:13] LABS: BILIRUBIN,TOTAL 0.5 mg/dL (0.2-1)
[2021-06-28] MEDS ORDERED: traMADol HCL 50 MG TABLET PO ONE (13:35)
[2021-06-28] MEDS ORDERED: traMADol HCL 50 MG TABLET ONE (13:36)
[2021-06-28 17:22] VITALS: BMI 35.6
[2021-06-28] MEDS: CEFTRIAXONE 1 GM in DEXTROSE 5%-WATER - 50 ML IVPB SCH (18:48)
[2021-06-28] MEDS ORDERED: SODIUM ZIRCONIUM CYCLOSILICATE (LOKELMA) 5 GM PACKET PO ONE (19:15)
[2021-06-28] MEDS: traMADol HCL 50 MG TABLET PO PRN (19:35)
[2021-06-28] MEDS: ACETAMINOPHEN 500 MG TABLET (FP) PO PRN (19:37)
[2021-06-28 20:54] LABS: CALCIUM 8.2 mg/dL (8.5-10.1)
[2021-06-28 20:55] LABS: BLOOD UREA NITROGEN 18.2 mg/dL (7-18)
[2021-06-28 20:58] LABS: CREATININE 0.8 mg/dL (0.55-1.3)
[2021-06-28] MEDS: ATORVASTATIN CA 10 MG TABLET (FP) PO SCH (21:15)
[2021-06-28] MEDS: APIXABAN 5 MG TABLET PO SCH (21:15)
[2021-06-29] MEDS: ACETAMINOPHEN 500 MG TABLET (FP) PO PRN ×4 (01:17→21:44)
[2021-06-29] MEDS: traMADol HCL 50 MG TABLET PO PRN ×4 (01:18→21:45)
[2021-06-29 09:39] LABS: BASO % 0.4 % (0-2.0); EOS % 3.4 % (0-4.5); HEMATOCRIT 31.2 % (32.4-45.2); HEMOGLOBIN 10.8 GM/dL (10.7-15.3); LYMPH % 50.5 % (8-40); MCH 34.5 pg (25.7-33.7); MCHC 34.6 g/dl (32.0-36.0); MEAN CELL VOLUME 99.8 fl (80-96); MEAN PLT VOLUME 6.5 fl (7.5-11.1); NEUT % 39.7 % (42.8-82.8); PLATELET COUNT 415 10^3/uL (134-434); RBC 3.12 M/mm3 (3.60-5.2); RDW 16.8 % (11.6-15.6); WHITE BLOOD COUNT 4.2 K/mm3 (4.0-10.0)
[2021-06-29] MEDS ORDERED: cefTRIAXone SODIUM 1 GM VIAL ONE (09:54)
[2021-06-29] MEDS ORDERED: PT OWN MED DRAWER 7, Y5N ONE (09:54)
[2021-06-29] MEDS ORDERED: DEXTROSE 5%-WATER - 50 ML IVPB ONE (09:54)
[2021-06-29] MEDS: CEFTRIAXONE 1 GM in DEXTROSE 5%-WATER - 50 ML IVPB SCH (09:55)
[2021-06-29] MEDS: PANTOPRAZOLE 40 MG TABLET PO SCH (09:56)
[2021-06-29] MEDS: LEVOTHYROXINE NA 50 MCG TABLET (FP) PO SCH (09:56)
[2021-06-29] MEDS: FUROSEMIDE 40 MG TABLET (FP) PO SCH (09:56)
[2021-06-29] MEDS: VALSARTAN 160 MG TABLET PO SCH (09:56)
[2021-06-29] MEDS: APIXABAN 5 MG TABLET PO SCH ×2 (09:56→21:44)
[2021-06-29] MEDS: NIFEdipine E.R. 30 MG TABLET PO SCH (09:57)
[2021-06-29] MEDS: CALCIUM ACETATE/AL SULFATE TOP 1.9 GM/PACKET PACKET TP SCH (09:58)
[2021-06-29] MEDS ORDERED: VANCOMYCIN 1 GM in D5W (PRE-DOCKED) 1,000 MG/250 ML IVPB SCH (10:00)
[2021-06-29 10:13] LABS: ALBUMIN 3.3 g/dl (3.4-5.0)
[2021-06-29 10:14] LABS: MAGNESIUM 2.3 mg/dL (1.8-2.4)
[2021-06-29 10:16] LABS: BILIRUBIN,TOTAL 0.6 mg/dL (0.2-1); CALCIUM 8.6 mg/dL (8.5-10.1); CREATININE 0.9 mg/dL (0.55-1.3)
[2021-06-29 10:17] LABS: TOT PROT 7.2 g/dl (6.4-8.2)
[2021-06-29] MEDS ORDERED: POLYETHYLENE GLYCOL (HEALTHYLAX) 3350 17 GM PACKET PO ONE (14:47)
[2021-06-29] MEDS: VANCOMYCIN 1 GRAM (PRE-DOCKED) 1,000 MG/250 ML BAG IVPB SCH (15:25)
[2021-06-29] MEDS: ATORVASTATIN CA 10 MG TABLET (FP) PO SCH (21:43)
[2021-06-30] MEDS: VANCOMYCIN 1 GRAM (PRE-DOCKED) 1,000 MG/250 ML BAG IVPB SCH ×2 (02:10→14:38)
[2021-06-30] MEDS: traMADol HCL 50 MG TABLET PO PRN ×3 (06:30→23:01)
[2021-06-30] MEDS: ACETAMINOPHEN 500 MG TABLET (FP) PO PRN ×3 (06:31→23:00)
[2021-06-30] MEDS ORDERED: DEXTROSE 5%-WATER - 50 ML IVPB ONE (09:17)
[2021-06-30] MEDS ORDERED: cefTRIAXone SODIUM 1 GM VIAL ONE (09:17)
[2021-06-30] MEDS: CEFTRIAXONE 1 GM in DEXTROSE 5%-WATER - 50 ML IVPB SCH (09:25)
[2021-06-30] MEDS: PANTOPRAZOLE 40 MG TABLET PO SCH (09:26)
[2021-06-30] MEDS: FUROSEMIDE 40 MG TABLET (FP) PO SCH (09:26)
[2021-06-30] MEDS: APIXABAN 5 MG TABLET PO SCH ×2 (09:26→22:54)
[2021-06-30] MEDS: LEVOTHYROXINE NA 50 MCG TABLET (FP) PO SCH (09:26)
[2021-06-30] MEDS: VALSARTAN 160 MG TABLET PO SCH (09:26)
[2021-06-30] MEDS: CALCIUM ACETATE/AL SULFATE TOP 1.9 GM/PACKET PACKET TP SCH (09:27)
[2021-06-30] MEDS: NIFEdipine E.R. 30 MG TABLET PO SCH (09:27)
[2021-06-30] MEDS: ATORVASTATIN CA 10 MG TABLET (FP) PO SCH (22:54)
[2021-07-01] MEDS: VANCOMYCIN 1 GRAM (PRE-DOCKED) 1,000 MG/250 ML BAG IVPB SCH ×2 (02:20→16:59)
[2021-07-01] MEDS: traMADol HCL 50 MG TABLET PO PRN ×3 (05:46→21:00)
[2021-07-01] MEDS: ACETAMINOPHEN 500 MG TABLET (FP) PO PRN ×3 (05:47→20:58)
[2021-07-01 08:25] LABS: HEMATOCRIT 28.3 % (32.4-45.2); MCH 35.1 pg (25.7-33.7); MCHC 35.3 g/dl (32.0-36.0); MEAN CELL VOLUME 99.4 fl (80-96); MEAN PLT VOLUME 6.7 fl (7.5-11.1); PLATELET COUNT 390 10^3/uL (134-434); RBC 2.85 M/mm3 (3.60-5.2); RDW 16.6 % (11.6-15.6); WHITE BLOOD COUNT 4.3 K/mm3 (4.0-10.0)
[2021-07-01 08:28] LABS: CALCIUM 8.2 mg/dL (8.5-10.1)
[2021-07-01 08:29] LABS: ALBUMIN 2.9 g/dl (3.4-5.0)
[2021-07-01 08:32] LABS: CREATININE 0.8 mg/dL (0.55-1.3)
[2021-07-01 08:33] LABS: BILIRUBIN,TOTAL 0.4 mg/dL (0.2-1)
[2021-07-01 08:34] LABS: TOT PROT 6.2 g/dl (6.4-8.2)
[2021-07-01 09:21] LABS: ANISOCYTOSIS 2+; MACROCYTOSIS 0; PLATELET ESTIMATE NORMAL
[2021-07-01] MEDS ORDERED: PT OWN MED DRAWER 7, Y5N ONE (09:23)
[2021-07-01] MEDS ORDERED: DEXTROSE 5%-WATER - 50 ML IVPB ONE (09:23)
[2021-07-01] MEDS ORDERED: cefTRIAXone SODIUM 1 GM VIAL ONE (09:23)
[2021-07-01] MEDS: NIFEdipine E.R. 30 MG TABLET PO SCH (10:13)
[2021-07-01] MEDS: CALCIUM ACETATE/AL SULFATE TOP 1.9 GM/PACKET PACKET TP SCH (10:13)
[2021-07-01] MEDS: FUROSEMIDE 40 MG TABLET (FP) PO SCH (10:14)
[2021-07-01] MEDS: APIXABAN 5 MG TABLET PO SCH ×2 (10:14→21:01)
[2021-07-01] MEDS: CEFTRIAXONE 1 GM in DEXTROSE 5%-WATER - 50 ML IVPB SCH (10:14)
[2021-07-01] MEDS: LEVOTHYROXINE NA 50 MCG TABLET (FP) PO SCH (10:14)
[2021-07-01] MEDS: PANTOPRAZOLE 40 MG TABLET PO SCH (10:14)
[2021-07-01] MEDS: VALSARTAN 160 MG TABLET PO SCH (10:14)
[2021-07-01] MEDS: LIDOCAINE 5% TOPICAL PATCH TP SCH (12:37)
[2021-07-01] MEDS ORDERED: POLYETHYLENE GLYCOL 3350 119 GM BTL PO ONE (16:30)
[2021-07-01] MEDS ORDERED: MAGNESIUM HYDROX 2400MG/30ML ORAL SUSPENSION 30 ML CUP PO ONE (16:31)
[2021-07-01] MEDS ORDERED: BISACODYL 10 MG SUPP.RECT PR ONE (16:31)
[2021-07-01] MEDS: LIDOCAINE PATCH REMOVAL MC SCH (21:01)
[2021-07-01] MEDS: ATORVASTATIN CA 10 MG TABLET (FP) PO SCH (21:01)
[2021-07-02] MEDS: traMADol HCL 50 MG TABLET PO PRN ×3 (03:15→18:11)
[2021-07-02] MEDS: ACETAMINOPHEN 500 MG TABLET (FP) PO PRN ×3 (03:16→18:12)
[2021-07-02] MEDS ORDERED: cefTRIAXone SODIUM 1 GM VIAL ONE (10:11)
[2021-07-02] MEDS ORDERED: DEXTROSE 5%-WATER - 50 ML IVPB ONE (10:11)
[2021-07-02] MEDS ORDERED: PT OWN MED DRAWER 7, Y5N ONE (10:11)
[2021-07-02] MEDS: APIXABAN 5 MG TABLET PO SCH ×2 (10:17→21:32)
[2021-07-02] MEDS: LEVOTHYROXINE NA 50 MCG TABLET (FP) PO SCH (10:17)
[2021-07-02] MEDS: PANTOPRAZOLE 40 MG TABLET PO SCH (10:17)
[2021-07-02] MEDS: VALSARTAN 160 MG TABLET PO SCH (10:17)
[2021-07-02] MEDS: FUROSEMIDE 40 MG TABLET (FP) PO SCH (10:17)
[2021-07-02] MEDS: NIFEdipine E.R. 30 MG TABLET PO SCH (10:17)
[2021-07-02] MEDS: CEFTRIAXONE 1 GM in DEXTROSE 5%-WATER - 50 ML IVPB SCH (10:18)
[2021-07-02] MEDS: LIDOCAINE 5% TOPICAL PATCH TP SCH (10:18)
[2021-07-02] MEDS: CALCIUM ACETATE/AL SULFATE TOP 1.9 GM/PACKET PACKET TP SCH (15:26)
[2021-07-02] MEDS: ATORVASTATIN CA 10 MG TABLET (FP) PO SCH (21:32)
[2021-07-02] MEDS: LIDOCAINE PATCH REMOVAL MC SCH (21:38)
[2021-07-03] MEDS: traMADol HCL 50 MG TABLET PO PRN ×4 (00:37→21:05)
[2021-07-03] MEDS: ACETAMINOPHEN 500 MG TABLET (FP) PO PRN ×4 (00:38→21:05)
[2021-07-03] MEDS: LEVOTHYROXINE NA 50 MCG TABLET (FP) PO SCH (06:14)
[2021-07-03] MEDS ORDERED: cefTRIAXone SODIUM 1 GM VIAL ONE (08:51)
[2021-07-03] MEDS ORDERED: DEXTROSE 5%-WATER - 50 ML IVPB ONE (08:51)
[2021-07-03] MEDS: CEFTRIAXONE 1 GM in DEXTROSE 5%-WATER - 50 ML IVPB SCH (09:16)
[2021-07-03] MEDS: FUROSEMIDE 40 MG TABLET (FP) PO SCH (09:17)
[2021-07-03] MEDS: APIXABAN 5 MG TABLET PO SCH ×2 (09:17→21:04)
[2021-07-03] MEDS: PANTOPRAZOLE 40 MG TABLET PO SCH (09:17)
[2021-07-03] MEDS: LIDOCAINE 5% TOPICAL PATCH TP SCH (09:17)
[2021-07-03] MEDS: VALSARTAN 160 MG TABLET PO SCH (09:17)
[2021-07-03] MEDS: CALCIUM ACETATE/AL SULFATE TOP 1.9 GM/PACKET PACKET TP SCH (09:18)
[2021-07-03] MEDS: NIFEdipine E.R. 30 MG TABLET PO SCH (09:20)
[2021-07-03] MEDS: GABAPENTIN 100 MG CAPSULE PO SCH ×2 (14:37→21:04)
[2021-07-03] MEDS: ATORVASTATIN CA 10 MG TABLET (FP) PO SCH (21:04)
[2021-07-03] MEDS: LIDOCAINE PATCH REMOVAL MC SCH (21:04)
[2021-07-04] MEDS: GABAPENTIN 100 MG CAPSULE PO SCH ×2 (06:15→13:14)
[2021-07-04] MEDS: LEVOTHYROXINE NA 50 MCG TABLET (FP) PO SCH (06:16)
[2021-07-04] MEDS: traMADol HCL 50 MG TABLET PO PRN (07:53)
[2021-07-04 08:53] VITALS: PULSE 60; TEMP 98.9
[2021-07-04] MEDS ORDERED: cefTRIAXone SODIUM 1 GM VIAL ONE (08:56)
[2021-07-04] MEDS ORDERED: DEXTROSE 5%-WATER - 50 ML IVPB ONE (08:56)
[2021-07-04] MEDS: VALSARTAN 160 MG TABLET PO SCH (08:59)
[2021-07-04] MEDS: FUROSEMIDE 40 MG TABLET (FP) PO SCH (08:59)
[2021-07-04] MEDS: PANTOPRAZOLE 40 MG TABLET PO SCH (08:59)
[2021-07-04] MEDS: LIDOCAINE 5% TOPICAL PATCH TP SCH (08:59)
[2021-07-04] MEDS: APIXABAN 5 MG TABLET PO SCH (08:59)
[2021-07-04] MEDS: CEFTRIAXONE 1 GM in DEXTROSE 5%-WATER - 50 ML IVPB SCH (09:00)
[2021-07-04] MEDS: CALCIUM ACETATE/AL SULFATE TOP 1.9 GM/PACKET PACKET TP SCH (09:00)
[2021-07-04 14:00] VITALS: BP 109/53
== END 2021-07-04 13:59 | disposition home or self-care (01) | DRG 593 ==
LOC: JER 08:21 → JERBED 12:56 → J7W 16:53
PROVIDERS: ADMIT Family Medicine; ATTEND Family Medicine
DX: L97.329 Non-pressure chronic ulcer of left ankle with unspecified severity (principal); L03.116 Cellulitis of left lower limb; L03.115 Cellulitis of right lower limb; I48.0 Paroxysmal atrial fibrillation; I10 Essential (primary) hypertension; E78.5 Hyperlipidemia, unspecified; I87.2 Venous insufficiency (chronic) (peripheral); E03.9 Hypothyroidism, unspecified; F41.9 Anxiety disorder, unspecified; M54.5 Low back pain; D64.9 Anemia, unspecified; Z86.718 Personal history of other venous thrombosis and embolism; Z79.01 Long term (current) use of anticoagulants
CPT/HCPCS: 36415; 71045-TC-FY; 74174-TC; 80048; 80053; 83735; 84479; 85025; 87040; 93005; 93010; 93971-TC; 99285-25; C9803; G0480; J0131; U0003; U0005

== ENCOUNTER 2022-06-20 13:24 | Emergency (ER) | payer OTHER, MEDICARE ==
[2022-06-20 13:31] VITALS: TEMP 98.4; BMI 35.8
[2022-06-20 14:55] LABS: HEMATOCRIT 30.9 % (32.4-45.2); HEMOGLOBIN 10.7 GM/dL (10.7-15.3); MCH 34.5 pg (25.7-33.7); MCHC 34.6 g/dl (32.0-36.0); MEAN CELL VOLUME 99.8 fl (80-96); MEAN PLT VOLUME 6.2 fl (7.5-11.1); PLATELET COUNT 319 10^3/uL (134-434); RDW 16.6 % (11.6-15.6); WHITE BLOOD COUNT 5.6 K/mm3 (4.0-10.0)
[2022-06-20 15:17] LABS: CALCIUM 8.9 mg/dL (8.5-10.1)
[2022-06-20 15:18] LABS: ALBUMIN 3.2 g/dl (3.4-5.0); BLOOD UREA NITROGEN 20.5 mg/dL (7-18)
[2022-06-20 15:20] LABS: MAGNESIUM 2.1 mg/dL (1.8-2.4)
[2022-06-20 15:21] LABS: CREATININE 0.8 mg/dL (0.55-1.3)
[2022-06-20 15:23] LABS: ANISOCYTOSIS 0; HELMET CELLS 0; HOWELL-JOLLY BODIES 0; MACROCYTOSIS 0; OVALOCYTE 0; ROULEAU 0; SICKELED CELLS 0; TARGET CELLS 0; TEAR DROP CELLS 0; TOT PROT 7.5 g/dl (6.4-8.2); TOXIC GRANULATION 0
[2022-06-20 15:27] LABS: BILIRUBIN,TOTAL 0.6 mg/dL (0.2-1)
[2022-06-20 16:20] VITALS: BP 135/56; PULSE 72; RESP 16
== END 2022-06-20 16:18 | disposition home or self-care (01) ==
LOC: JER 13:24
DX: I48.0 Paroxysmal atrial fibrillation (principal)
CPT/HCPCS: 36415; 80053; 83735; 84439; 84443; 85025; 93005; 93010; 99284-25

== ENCOUNTER 2022-07-28 12:17 | Emergency (ER) | payer OTHER, MEDICARE ==
[2022-07-28] MEDS ORDERED: SODIUM CHLORIDE 0.9% 500 ML INFUS.BAG IV ONE ×2 (12:51→13:43)
[2022-07-28] MEDS ORDERED: ONDANSETRON 4 MG/2 ML VIAL ONE (13:00)
[2022-07-28] MEDS ORDERED: ONDANSETRON 4 MG/2 ML VIAL IVPUSH ONE (13:00)
[2022-07-28 13:17] LABS: HEMATOCRIT 32.1 % (32.4-45.2); HEMOGLOBIN 10.5 GM/dL (10.7-15.3); MCH 33.6 pg (25.7-33.7); MCHC 32.6 g/dl (32.0-36.0); MEAN CELL VOLUME 103.1 fl (80-96); MEAN PLT VOLUME 7.5 fl (7.5-11.1); PLATELET COUNT 490 10^3/uL (134-434); RBC 3.11 M/mm3 (3.60-5.2); RDW 18.5 % (11.6-15.6); WHITE BLOOD COUNT 11.9 K/mm3 (4.0-10.0)
[2022-07-28 13:19] LABS: VENOUS BASE EXCESS -2.7 mmol/L (-2-2); VENOUS O2 SATURATION 53.8 % (70-80); VENOUS PCO2 40.5 mmHg (38-52); VENOUS PH 7.362 (7.310-7.410)
[2022-07-28 13:27] LABS: INR 1.38 (0.83-1.09); PROTHROMBIN TIME (PATIENT) 15.9 SEC (9.7-13.0)
[2022-07-28 13:30] LABS: ACTIVATED PTT 29.1 SECONDS (25.2-36.5)
[2022-07-28 13:41] VITALS: TEMP 98.1; BMI 35.6
[2022-07-28 13:43] VITALS: RESP 18
[2022-07-28 14:01] LABS: ANISOCYTOSIS 1+; MACROCYTOSIS 1+
[2022-07-28 14:06] LABS: ALBUMIN 3.2 g/dl (3.4-5.0); BILIRUBIN,TOTAL 0.6 mg/dL (0.2-1); BLOOD UREA NITROGEN 28.6 mg/dL (7-18); CALCIUM 8.9 mg/dL (8.5-10.1); CREATININE 1.2 mg/dL (0.55-1.3); MAGNESIUM 2.3 mg/dL (1.8-2.4); N-TERMINAL BNP 3368.6 pg/ml (5-450); TOT PROT 7.1 g/dl (6.4-8.2)
[2022-07-28 17:52] LABS: PH,URINE 5.5 (5.0-8.0); URINE APPEARANCE CLEAR; URINE BILIRUBIN NEGATIVE (NEGATIVE); URINE COLOR YELLOW; URINE GLUCOSE (UA) NEGATIVE (NEGATIVE); URINE KETONE NEGATIVE (NEGATIVE); URINE LEUK ESTERASE NEGATIVE (NEGATIVE); URINE NITRITE NEGATIVE (NEGATIVE); URINE PROTEIN NEGATIVE (NEGATIVE); URINE UROBILINOGEN 0.2 mg/dL (0.2-1.0)
[2022-07-28 18:36] VITALS: BP 157/69; PULSE 72
[2022-07-28] MEDS ORDERED: ASPIRIN 81 MG CHEWABLE TABLETS PO ONE (22:36)
[2022-07-28] MEDS ORDERED: HEPARIN NA (PORCINE) 5,000 UNITS/ML 1ML VIAL IVPUSH ONE (22:36)
[2022-07-28] MEDS ORDERED: HEPARIN NA (PORCINE) 5,000 UNITS/ML 1ML VIAL IVPUSH PRN ×2 (22:36)
[2022-07-28] MEDS ORDERED: GABAPENTIN 100 MG CAPSULE PO ONE (22:39)
[2022-07-28] MEDS ORDERED: ACETAMINOPHEN 325 MG TABLET (FP) PO ONE (22:39)
[2022-07-28] MEDS ORDERED: traMADol HCL 50 MG TABLET PO ONE (22:40)
[2022-07-28] MEDS ORDERED: GABAPENTIN 100 MG CAPSULE ONE (22:41)
[2022-07-28] MEDS ORDERED: traMADol HCL 50 MG TABLET ONE (22:41)
[2022-07-28] MEDS ORDERED: HEPARIN INFUSION - 25,000 UNITS/500 ML INFUS.BAG IVPB ONE (22:41)
[2022-07-28] MEDS ORDERED: HEPARIN NA (PORCINE) 5,000 UNITS/ML 1ML VIAL ONE (22:41)
[2022-07-28] MEDS ORDERED: ACETAMINOPHEN 325 MG TABLET (FP) ONE (22:41)
[2022-07-28] MEDS ORDERED: HEPARIN - 25,000 UNIT in SODIUM CHLORIDE 495 ML IV SCH (22:45)
== END 2022-07-29 02:07 | disposition short-term general hospital (02) ==
LOC: JER 12:17
DX: I48.91 Unspecified atrial fibrillation (principal)
CPT/HCPCS: 36415; 71045-TC-FY; 80053; 81003; 82803; 83735; 83880; 84443; 84484; 85025; 85610; 85730; 86850; 86900; 86901; 87086; 93005; 93010; 99284-25; C9803-CS; J1644; U0003; U0005

== ENCOUNTER 2023-10-18 10:07 | Inpatient (IN) | payer OTHER, MEDICARE ==
[2023-10-18] MEDS ORDERED: VANCOMYCIN 1,000 MG in DEXTROSE 5%-WATER - 250 ML IVPB ONE (11:26)
[2023-10-18] MEDS ORDERED: PIPERACILLIN/TAZOB 3.375 GM 3.375 GM in DEXTROSE 5%-WATER - 50 ML IVPB ONE (11:26)
[2023-10-18] MEDS ORDERED: PIPERACILLIN/TAZOB 3.375 GM 3.375 GM/50 ML BAG IVPB ONE (12:10)
[2023-10-18 12:20] LABS: HEMATOCRIT 25.4 % (32.4-45.2); HEMOGLOBIN 8.6 GM/dL (10.7-15.3); MCH 35.1 pg (25.7-33.7); MCHC 33.9 g/dl (32.0-36.0); MEAN CELL VOLUME 103.6 fl (80-96); MEAN PLT VOLUME 6.5 fl (7.5-11.1); PLATELET COUNT 394 10^3/uL (134-434); RBC 2.45 M/mm3 (3.60-5.2); RDW 17.8 % (11.6-15.6); WHITE BLOOD COUNT 4.9 K/mm3 (4.0-10.0)
[2023-10-18 12:28] LABS: INR 2.08 (0.83-1.09); PROTHROMBIN TIME (PATIENT) 23.9 SEC (9.7-13.0)
[2023-10-18 12:30] LABS: ACTIVATED PTT 33.9 SECONDS (25.2-36.5)
[2023-10-18] MEDS ORDERED: VANCOMYCIN 1 GRAM (PRE-DOCKED) 1,000 MG/250 ML BAG IVPB ONE (12:50)
[2023-10-18 13:37] LABS: ANISOCYTOSIS 1+; MACROCYTOSIS 1+
[2023-10-18 13:42] LABS: ALBUMIN 2.9 g/dl (3.4-5.0); CALCIUM 8.5 mg/dL (8.5-10.1)
[2023-10-18 13:46] LABS: CREATININE 0.9 mg/dL (0.55-1.3); TOT PROT 6.9 g/dl (6.4-8.2)
[2023-10-18 13:48] LABS: BILIRUBIN,TOTAL 0.8 mg/dL (0.2-1)
[2023-10-18 15:32] LABS: ERYTHROCYTE SEDIMENTATION RATE 115 mm/hr (0-30)
[2023-10-18] MEDS: ENOXAPARIN NA (PORCINE) 80 MG/0.8 ML DISP.SYRIN SQ SCH (21:11)
[2023-10-18] MEDS: PIPERACILLIN/TAZOB 3.375 GM 3.375 GM in DEXTROSE 5%-WATER - 50 ML IVPB SCH (21:11)
[2023-10-18] MEDS ORDERED: PATIENT'S OWN MEDICATION (NON-FORMULARY) (Atorvastatin Ca 40 MG) PO SCH (22:00)
[2023-10-18] MEDS: ATORVASTATIN CA 40 MG TABLET (FP) PO SCH (22:16)
[2023-10-18] MEDS: GABAPENTIN 100 MG CAPSULE PO SCH (22:16)
[2023-10-18] MEDS ORDERED: MELATONIN 5 MG TABLETS PO ONE (23:45)
[2023-10-18] MEDS ORDERED: traMADol HCL 50 MG TABLET PO ONE (23:45)
[2023-10-19] MEDS: GABAPENTIN 100 MG CAPSULE PO SCH ×4 (00:23→21:13)
[2023-10-19] MEDS ORDERED: VANCOMYCIN/WATER FOR INJ (PEG) 1,000 MG/200 ML BAG IVPB ONE (00:45)
[2023-10-19] MEDS ORDERED: VANCOMYCIN 1 GRAM (PRE-DOCKED) 1,000 MG/250 ML BAG IVPB ONE (01:00)
[2023-10-19] MEDS ORDERED: VANCOMYCIN 1 GRAM (PRE-DOCKED) 1,000 MG/250 ML BAG IVPB SCH (01:00)
[2023-10-19 01:49] VITALS: BMI 34.3
[2023-10-19] MEDS ORDERED: PIPERACILLIN/TAZOB 3.375 GM 3.375 GM in DEXTROSE 5%-WATER - 50 ML IVPB SCH (02:00)
[2023-10-19] MEDS: PIPERACILLIN/TAZOB 3.375 GM 3.375 GM in DEXTROSE 5%-WATER - 50 ML IVPB SCH ×3 (02:47→17:32)
[2023-10-19] MEDS: LEVOTHYROXINE NA 50 MCG TABLET (FP) PO SCH (06:47)
[2023-10-19] MEDS: ENOXAPARIN NA (PORCINE) 80 MG/0.8 ML DISP.SYRIN SQ SCH ×3 (07:56→21:23)
[2023-10-19] MEDS: PANTOPRAZOLE 40 MG TABLET PO SCH (09:03)
[2023-10-19] MEDS: VALSARTAN 160 MG TABLET PO SCH (09:03)
[2023-10-19] MEDS: ISOSORBIDE MONONITRATE 30 MG TAB.SR.24H (FP) PO SCH (09:03)
[2023-10-19 09:04] LABS: BASO % 0.4 % (0-2.0); EOS % 2.8 % (0-4.5); HEMATOCRIT 26.7 % (32.4-45.2); HEMOGLOBIN 8.9 GM/dL (10.7-15.3); LYMPH % 55.5 % (8-40); MCH 34.5 pg (25.7-33.7); MCHC 33.2 g/dl (32.0-36.0); MEAN CELL VOLUME 103.9 fl (80-96); MEAN PLT VOLUME 6.7 fl (7.5-11.1); NEUT % 32.3 % (42.8-82.8); PLATELET COUNT 386 10^3/uL (134-434); RBC 2.57 M/mm3 (3.60-5.2); RDW 17.4 % (11.6-15.6); WHITE BLOOD COUNT 4.8 K/mm3 (4.0-10.0)
[2023-10-19 09:23] LABS: POTASSIUM 4.3 mmol/L (3.5-5.1)
[2023-10-19 09:26] LABS: ALBUMIN 2.7 g/dl (3.4-5.0); BLOOD UREA NITROGEN 14.4 mg/dL (7-18); CALCIUM 8.6 mg/dL (8.5-10.1)
[2023-10-19 09:29] LABS: CREATININE 0.9 mg/dL (0.55-1.3)
[2023-10-19 09:31] LABS: BILIRUBIN,TOTAL 1.4 mg/dL (0.2-1); TOT PROT 6.6 g/dl (6.4-8.2)
[2023-10-19] MEDS: traMADol HCL 50 MG TABLET PO PRN ×2 (09:33→21:21)
[2023-10-19] MEDS ORDERED: LEVOTHYROXINE NA 50 MCG TABLET (FP) PO SCH (10:00)
[2023-10-19] MEDS ORDERED: ISOSORBIDE MONONITRATE 30 MG PO SCH (10:00)
[2023-10-19] MEDS: CALCIUM ACETATE/AL SULFATE TOP 1.9 GM/PACKET PACKET TP SCH (11:34)
[2023-10-19] MEDS: MELATONIN 5 MG TABLETS PO SCH (21:12)
[2023-10-19] MEDS: ATORVASTATIN CA 40 MG TABLET (FP) PO SCH (21:13)
[2023-10-20] MEDS: PIPERACILLIN/TAZOB 3.375 GM 3.375 GM in DEXTROSE 5%-WATER - 50 ML IVPB SCH ×3 (01:31→18:31)
[2023-10-20] MEDS: LEVOTHYROXINE NA 50 MCG TABLET (FP) PO SCH (06:46)
[2023-10-20] MEDS: GABAPENTIN 100 MG CAPSULE PO SCH ×3 (06:46→21:46)
[2023-10-20] MEDS: ISOSORBIDE MONONITRATE 30 MG TAB.SR.24H (FP) PO SCH (09:11)
[2023-10-20] MEDS: VALSARTAN 160 MG TABLET PO SCH (09:11)
[2023-10-20] MEDS: PANTOPRAZOLE 40 MG TABLET PO SCH (09:11)
[2023-10-20] MEDS: ENOXAPARIN NA (PORCINE) 80 MG/0.8 ML DISP.SYRIN SQ SCH ×4 (09:11→21:42)
[2023-10-20] MEDS: CALCIUM ACETATE/AL SULFATE TOP 1.9 GM/PACKET PACKET TP SCH (14:18)
[2023-10-20] MEDS: MELATONIN 5 MG TABLETS PO SCH (21:45)
[2023-10-20] MEDS: ATORVASTATIN CA 40 MG TABLET (FP) PO SCH (21:46)
[2023-10-21] MEDS: PIPERACILLIN/TAZOB 3.375 GM 3.375 GM in DEXTROSE 5%-WATER - 50 ML IVPB SCH ×3 (02:48→18:14)
[2023-10-21] MEDS: GABAPENTIN 100 MG CAPSULE PO SCH ×3 (05:36→21:41)
[2023-10-21] MEDS: LEVOTHYROXINE NA 50 MCG TABLET (FP) PO SCH (06:01)
[2023-10-21] MEDS: ENOXAPARIN NA (PORCINE) 80 MG/0.8 ML DISP.SYRIN SQ SCH ×2 (08:06→21:40)
[2023-10-21] MEDS: ISOSORBIDE MONONITRATE 30 MG TAB.SR.24H (FP) PO SCH (10:40)
[2023-10-21] MEDS: PANTOPRAZOLE 40 MG TABLET PO SCH (10:40)
[2023-10-21] MEDS: VALSARTAN 160 MG TABLET PO SCH (10:40)
[2023-10-21] MEDS: CALCIUM ACETATE/AL SULFATE TOP 1.9 GM/PACKET PACKET TP SCH (13:13)
[2023-10-21] MEDS: MELATONIN 5 MG TABLETS PO SCH (21:41)
[2023-10-21] MEDS: ATORVASTATIN CA 40 MG TABLET (FP) PO SCH (21:41)
[2023-10-22] MEDS: PIPERACILLIN/TAZOB 3.375 GM 3.375 GM in DEXTROSE 5%-WATER - 50 ML IVPB SCH ×3 (02:26→17:58)
[2023-10-22] MEDS: GABAPENTIN 100 MG CAPSULE PO SCH ×3 (05:17→22:18)
[2023-10-22] MEDS: LEVOTHYROXINE NA 50 MCG TABLET (FP) PO SCH (06:06)
[2023-10-22] MEDS: ENOXAPARIN NA (PORCINE) 80 MG/0.8 ML DISP.SYRIN SQ SCH (08:58)
[2023-10-22] MEDS: VALSARTAN 160 MG TABLET PO SCH (09:05)
[2023-10-22] MEDS: ISOSORBIDE MONONITRATE 30 MG TAB.SR.24H (FP) PO SCH (09:05)
[2023-10-22] MEDS: PANTOPRAZOLE 40 MG TABLET PO SCH (09:05)
[2023-10-22] MEDS: CALCIUM ACETATE/AL SULFATE TOP 1.9 GM/PACKET PACKET TP SCH (14:16)
[2023-10-22] MEDS: MELATONIN 5 MG TABLETS PO SCH (22:18)
[2023-10-22] MEDS: ATORVASTATIN CA 40 MG TABLET (FP) PO SCH (22:18)
[2023-10-22] MEDS: APIXABAN 5 MG TABLET PO SCH (22:18)
[2023-10-23] MEDS: amLODIPine BESYLATE 5 MG TABLET (FP) PO SCH ×2 (00:27→10:08)
[2023-10-23] MEDS: ENOXAPARIN NA (PORCINE) 80 MG/0.8 ML DISP.SYRIN SQ SCH (00:28)
[2023-10-23] MEDS: PIPERACILLIN/TAZOB 3.375 GM 3.375 GM in DEXTROSE 5%-WATER - 50 ML IVPB SCH ×3 (01:24→18:13)
[2023-10-23] MEDS: GABAPENTIN 100 MG CAPSULE PO SCH ×3 (06:37→21:05)
[2023-10-23] MEDS: LEVOTHYROXINE NA 50 MCG TABLET (FP) PO SCH (06:37)
[2023-10-23 09:26] LABS: BASO % 0.4 % (0-2.0); EOS % 2.5 % (0-4.5); HEMATOCRIT 28.1 % (32.4-45.2); HEMOGLOBIN 9.7 GM/dL (10.7-15.3); LYMPH % 54.2 % (8-40); MCH 36.1 pg (25.7-33.7); MCHC 34.5 g/dl (32.0-36.0); MEAN CELL VOLUME 104.7 fl (80-96); MEAN PLT VOLUME 6.9 fl (7.5-11.1); MONO % 9.1 % (3.8-10.2); NEUT % 33.8 % (42.8-82.8); PLATELET COUNT 429 10^3/uL (134-434); RBC 2.68 M/mm3 (3.60-5.2); RDW 17.5 % (11.6-15.6); WHITE BLOOD COUNT 4.7 K/mm3 (4.0-10.0)
[2023-10-23 09:44] LABS: POTASSIUM 4.1 mmol/L (3.5-5.1)
[2023-10-23 09:45] LABS: CALCIUM 8.6 mg/dL (8.5-10.1)
[2023-10-23 09:46] LABS: ALBUMIN 2.8 g/dl (3.4-5.0); BLOOD UREA NITROGEN 7.4 mg/dL (7-18)
[2023-10-23 09:49] LABS: CREATININE 0.7 mg/dL (0.55-1.3)
[2023-10-23 09:50] LABS: BILIRUBIN,TOTAL 0.9 mg/dL (0.2-1)
[2023-10-23 09:51] LABS: TOT PROT 7.1 g/dl (6.4-8.2)
[2023-10-23] MEDS: APIXABAN 5 MG TABLET PO SCH ×2 (10:08→21:04)
[2023-10-23] MEDS: ISOSORBIDE MONONITRATE 30 MG TAB.SR.24H (FP) PO SCH (10:08)
[2023-10-23] MEDS: PANTOPRAZOLE 40 MG TABLET PO SCH (10:08)
[2023-10-23] MEDS: VALSARTAN 160 MG TABLET PO SCH (10:08)
[2023-10-23] MEDS: CALCIUM ACETATE/AL SULFATE TOP 1.9 GM/PACKET PACKET TP SCH (10:10)
[2023-10-23] MEDS: MELATONIN 5 MG TABLETS PO SCH (21:04)
[2023-10-23] MEDS: ATORVASTATIN CA 40 MG TABLET (FP) PO SCH (21:04)
[2023-10-23] MEDS ORDERED: ACETAMINOPHEN 325 MG TABLET (FP) PO PRN (23:53)
[2023-10-24] MEDS: PIPERACILLIN/TAZOB 3.375 GM 3.375 GM in DEXTROSE 5%-WATER - 50 ML IVPB SCH ×3 (02:36→17:01)
[2023-10-24] MEDS: GABAPENTIN 100 MG CAPSULE PO SCH ×3 (06:11→23:08)
[2023-10-24] MEDS: LEVOTHYROXINE NA 50 MCG TABLET (FP) PO SCH (06:11)
[2023-10-24] MEDS: VALSARTAN 160 MG TABLET PO SCH (10:02)
[2023-10-24] MEDS: amLODIPine BESYLATE 5 MG TABLET (FP) PO SCH (10:02)
[2023-10-24] MEDS: APIXABAN 5 MG TABLET PO SCH ×2 (10:02→23:08)
[2023-10-24] MEDS: PANTOPRAZOLE 40 MG TABLET PO SCH (10:02)
[2023-10-24] MEDS: ISOSORBIDE MONONITRATE 30 MG TAB.SR.24H (FP) PO SCH (10:02)
[2023-10-24] MEDS: CALCIUM ACETATE/AL SULFATE TOP 1.9 GM/PACKET PACKET TP SCH ×2 (10:04→17:02)
[2023-10-24] MEDS: MELATONIN 5 MG TABLETS PO SCH (23:07)
[2023-10-24] MEDS: ATORVASTATIN CA 40 MG TABLET (FP) PO SCH (23:09)
[2023-10-25] MEDS: PIPERACILLIN/TAZOB 3.375 GM 3.375 GM in DEXTROSE 5%-WATER - 50 ML IVPB SCH ×3 (01:53→18:13)
[2023-10-25] MEDS: LEVOTHYROXINE NA 50 MCG TABLET (FP) PO SCH (06:18)
[2023-10-25] MEDS: GABAPENTIN 100 MG CAPSULE PO SCH ×3 (06:18→21:41)
[2023-10-25] MEDS: APIXABAN 5 MG TABLET PO SCH ×2 (09:30→21:41)
[2023-10-25] MEDS: PANTOPRAZOLE 40 MG TABLET PO SCH (09:30)
[2023-10-25] MEDS: amLODIPine BESYLATE 5 MG TABLET (FP) PO SCH (09:30)
[2023-10-25] MEDS: VALSARTAN 160 MG TABLET PO SCH (09:30)
[2023-10-25] MEDS: ISOSORBIDE MONONITRATE 30 MG TAB.SR.24H (FP) PO SCH (09:31)
[2023-10-25] MEDS: CALCIUM ACETATE/AL SULFATE TOP 1.9 GM/PACKET PACKET TP SCH ×2 (10:04→18:15)
[2023-10-25] MEDS: MELATONIN 5 MG TABLETS PO SCH (21:41)
[2023-10-25] MEDS: ATORVASTATIN CA 40 MG TABLET (FP) PO SCH (21:41)
[2023-10-26] MEDS: PIPERACILLIN/TAZOB 3.375 GM 3.375 GM in DEXTROSE 5%-WATER - 50 ML IVPB SCH ×3 (02:14→18:26)
[2023-10-26] MEDS: GABAPENTIN 100 MG CAPSULE PO SCH ×3 (06:52→23:00)
[2023-10-26] MEDS: LEVOTHYROXINE NA 50 MCG TABLET (FP) PO SCH (06:55)
[2023-10-26] MEDS: CALCIUM ACETATE/AL SULFATE TOP 1.9 GM/PACKET PACKET TP SCH (11:29)
[2023-10-26] MEDS: ISOSORBIDE MONONITRATE 30 MG TAB.SR.24H (FP) PO SCH (11:29)
[2023-10-26] MEDS: VALSARTAN 160 MG TABLET PO SCH (11:29)
[2023-10-26] MEDS: PANTOPRAZOLE 40 MG TABLET PO SCH (11:29)
[2023-10-26] MEDS: APIXABAN 5 MG TABLET PO SCH ×2 (11:29→23:00)
[2023-10-26] MEDS: amLODIPine BESYLATE 5 MG TABLET (FP) PO SCH (11:29)
[2023-10-26] MEDS: ATORVASTATIN CA 40 MG TABLET (FP) PO SCH (23:00)
[2023-10-26] MEDS: MELATONIN 5 MG TABLETS PO SCH (23:00)
[2023-10-26 23:04] VITALS: RESP 17
[2023-10-27] MEDS: PIPERACILLIN/TAZOB 3.375 GM 3.375 GM in DEXTROSE 5%-WATER - 50 ML IVPB SCH ×2 (02:57→10:00)
[2023-10-27 06:29] VITALS: BP 151/54; PULSE 62; TEMP 98.1
[2023-10-27] MEDS: GABAPENTIN 100 MG CAPSULE PO SCH ×2 (06:48→15:21)
[2023-10-27] MEDS: LEVOTHYROXINE NA 50 MCG TABLET (FP) PO SCH (06:48)
[2023-10-27] MEDS: amLODIPine BESYLATE 5 MG TABLET (FP) PO SCH (10:00)
[2023-10-27] MEDS: APIXABAN 5 MG TABLET PO SCH (10:00)
[2023-10-27] MEDS: VALSARTAN 160 MG TABLET PO SCH (10:00)
[2023-10-27] MEDS: PANTOPRAZOLE 40 MG TABLET PO SCH (10:00)
[2023-10-27] MEDS: CALCIUM ACETATE/AL SULFATE TOP 1.9 GM/PACKET PACKET TP SCH (10:00)
[2023-10-27] MEDS: ISOSORBIDE MONONITRATE 30 MG TAB.SR.24H (FP) PO SCH (10:00)
[2023-10-27 10:07] LABS: BASO % 0.4 % (0-2.0); EOS % 3.2 % (0-4.5); HEMATOCRIT 30.5 % (32.4-45.2); HEMOGLOBIN 9.9 GM/dL (10.7-15.3); MCH 34.1 pg (25.7-33.7); MCHC 32.6 g/dl (32.0-36.0); MEAN CELL VOLUME 104.7 fl (80-96); MEAN PLT VOLUME 6.7 fl (7.5-11.1); MONO % 8.1 % (3.8-10.2); NEUT % 37.3 % (42.8-82.8); PLATELET COUNT 413 10^3/uL (134-434); RBC 2.91 M/mm3 (3.60-5.2); RDW 18.3 % (11.6-15.6); WHITE BLOOD COUNT 4.2 K/mm3 (4.0-10.0)
[2023-10-27 10:39] LABS: POTASSIUM 4.3 mmol/L (3.5-5.1)
[2023-10-27 10:43] LABS: ALBUMIN 2.8 g/dl (3.4-5.0); BLOOD UREA NITROGEN 9.7 mg/dL (7-18); CALCIUM 9.2 mg/dL (8.5-10.1)
[2023-10-27 10:47] LABS: CREATININE 0.7 mg/dL (0.55-1.3)
[2023-10-27 10:48] LABS: BILIRUBIN,TOTAL 0.9 mg/dL (0.2-1)
== END 2023-10-27 17:19 | disposition home or self-care (01) | DRG 603 ==
LOC: JER 10:07 → JERBED 12:30 → J5S 20:30
PROVIDERS: ADMIT Internal Medicine; ATTEND Internal Medicine
DX: L03.116 Cellulitis of left lower limb (principal); L97.329 Non-pressure chronic ulcer of left ankle with unspecified severity; D64.9 Anemia, unspecified; E03.9 Hypothyroidism, unspecified; I10 Essential (primary) hypertension; I48.91 Unspecified atrial fibrillation; E78.5 Hyperlipidemia, unspecified; L03.115 Cellulitis of right lower limb
CPT/HCPCS: 36415; 73590-TC-LT-FY; 73610-TC-LT-FY; 73610-TC-RT-FY; 73630-TC-LT; 73630-TC-RT-FY; 80053; 82962; 85025; 85610; 85651; 85730; 86140; 86850; 86900; 86901; 87040; 87070; 87186; 87205; 93005; 93010; 97597; 97598; 99285-25

== ENCOUNTER 2024-09-10 11:14 | Inpatient (IN) | payer OTHER, MEDICARE ==
[2024-09-10 11:43] VITALS: BMI 30.2
[2024-09-10] MEDS ORDERED: ACETAMINOPHEN 325 MG TABLET (FP) ONE (13:35)
[2024-09-10 14:57] LABS: BASO % 0.3 % (0-2.0); EOS % 0.7 % (0-4.5); HEMATOCRIT 22.7 % (32.4-45.2); HEMOGLOBIN 7.5 GM/dL (10.7-15.3); LYMPH % 46.1 % (8-40); MCH 35.2 pg (25.7-33.7); MEAN CELL VOLUME 106.9 fl (80-96); MEAN PLT VOLUME 6.1 fl (7.5-11.1); MONO % 6.6 % (3.8-10.2); NEUT % 46.3 % (42.8-82.8); PLATELET COUNT 379 10^3/uL (134-434); RBC 2.12 M/mm3 (3.60-5.2); RDW 19.3 % (11.6-15.6); WHITE BLOOD COUNT 5.2 K/mm3 (4.0-10.0)
[2024-09-10 15:01] LABS: INR 1.72 (0.83-1.09); PROTHROMBIN TIME (PATIENT) 19.1 SEC (9.7-13.0)
[2024-09-10 15:04] LABS: ACTIVATED PTT 35.5 SECONDS (25.2-36.5)
[2024-09-10] MEDS ORDERED: traMADol HCL 50 MG TABLET ONE (15:04)
[2024-09-10] MEDS: ACETAMINOPHEN 500 MG TABLET (FP) PO ONE (15:05)
[2024-09-10 15:33] LABS: ANISOCYTOSIS 1+; MACROCYTOSIS 1+
[2024-09-10 15:39] LABS: POTASSIUM 4.6 mmol/L (3.5-5.1)
[2024-09-10 15:41] LABS: CALCIUM 8.4 mg/dL (8.5-10.1)
[2024-09-10 15:42] LABS: ALBUMIN 2.8 g/dl (3.4-5.0); BLOOD UREA NITROGEN 16.7 mg/dL (7-18)
[2024-09-10 15:45] LABS: CREATININE 0.8 mg/dL (0.55-1.3)
[2024-09-10 15:46] LABS: BILIRUBIN,TOTAL 0.8 mg/dL (0.2-1); TOT PROT 6.8 g/dl (6.4-8.2)
[2024-09-10] MEDS: traMADol HCL 50 MG TABLET PO ONE (15:48)
[2024-09-10] MEDS ORDERED: PIPERACILLIN/TAZOB 3.375 GM 3.375 GM/50 ML BAG IVPB ONE (16:56)
[2024-09-10] MEDS: PIPERACILLIN/TAZOB 3.375 GM 3.375 GM in DEXTROSE 5%-WATER - 50 ML IVPB ONE (17:11)
[2024-09-10] MEDS: VANCOMYCIN HCL 1,500 MG in DEXTROSE 5%-WATER - 500 ML IVPB ONE (19:14)
[2024-09-10] MEDS: GABAPENTIN 300 MG CAPSULE PO SCH (21:34)
[2024-09-10] MEDS: ACETAMINOPHEN 1000 MG/100 ML BAG IVPB ONE (21:34)
[2024-09-10] MEDS: APIXABAN 5 MG TABLET PO SCH (22:08)
[2024-09-11] MEDS: VANCOMYCIN PREMIX 1.5 GM 1,500 MG/300 ML BAG IVPB ONE (00:56)
[2024-09-11 09:45] LABS: BASO % 0.3 % (0-2.0); EOS % 1.1 % (0-4.5); HEMOGLOBIN 8.2 GM/dL (10.7-15.3); LYMPH % 53.8 % (8-40); MCH 35.9 pg (25.7-33.7); MEAN CELL VOLUME 105.8 fl (80-96); MEAN PLT VOLUME 6.6 fl (7.5-11.1); MONO % 6.3 % (3.8-10.2); NEUT % 38.5 % (42.8-82.8); PLATELET COUNT 391 10^3/uL (134-434); RBC 2.27 M/mm3 (3.60-5.2); RDW 18.7 % (11.6-15.6); WHITE BLOOD COUNT 4.9 K/mm3 (4.0-10.0)
[2024-09-11] MEDS: PANTOPRAZOLE 40 MG TABLET PO SCH (09:50)
[2024-09-11] MEDS: VALSARTAN 160 MG TABLET PO SCH (09:51)
[2024-09-11] MEDS: FUROSEMIDE 40 MG TABLET (FP) PO SCH (09:51)
[2024-09-11] MEDS: LEVOTHYROXINE NA 50 MCG TABLET (FP) PO SCH (09:51)
[2024-09-11] MEDS ORDERED: FUROSEMIDE 40 MG TABLET (FP) PO SCH (10:00)
[2024-09-11] MEDS: PIPERACILLIN/TAZOB 3.375 GM 3.375 GM in DEXTROSE 5%-WATER - 50 ML IVPB SCH (16:04)
[2024-09-11] MEDS: VANCOMYCIN/WATER FOR INJ (PEG) 1,000 MG/200 ML BAG IVPB SCH ×2 (16:51→17:00)
[2024-09-11] MEDS: PIPERACILLIN/TAZOB 3.375 GM 50 ML IVPB SCH (18:13)
[2024-09-11] MEDS: SODIUM HYPOCHLORITE 0.25%- 473 ML BULK BOTTLE TP SCH (18:14)
[2024-09-11] MEDS: ATORVASTATIN CA 40 MG TABLET (FP) PO SCH (22:00)
[2024-09-11] MEDS: traMADol HCL 50 MG TABLET PO PRN (22:01)
[2024-09-11] MEDS: ACETAMINOPHEN 1000 MG/100 ML BAG IVPB ONE (23:59)
[2024-09-12 10:44] LABS: BASO % 0.5 % (0-2.0); EOS % 3.9 % (0-4.5); HEMATOCRIT 25.3 % (32.4-45.2); HEMOGLOBIN 8.5 GM/dL (10.7-15.3); LYMPH % 46.9 % (8-40); MCH 36.1 pg (25.7-33.7); MCHC 33.7 g/dl (32.0-36.0); MEAN CELL VOLUME 106.9 fl (80-96); MEAN PLT VOLUME 6.9 fl (7.5-11.1); MONO % 9.7 % (3.8-10.2); PLATELET COUNT 403 10^3/uL (134-434); RBC 2.37 M/mm3 (3.60-5.2); RDW 18.7 % (11.6-15.6); WHITE BLOOD COUNT 3.2 K/mm3 (4.0-10.0)
[2024-09-12 11:25] LABS: POTASSIUM 4.3 mmol/L (3.5-5.1)
[2024-09-12 11:30] LABS: ALBUMIN 2.8 g/dl (3.4-5.0); CALCIUM 8.7 mg/dL (8.5-10.1)
[2024-09-12 11:31] LABS: BLOOD UREA NITROGEN 12.3 mg/dL (7-18)
[2024-09-12 11:34] LABS: CREATININE 0.8 mg/dL (0.55-1.3)
[2024-09-13 10:10] LABS: BASO % 0.6 % (0-2.0); EOS % 4.2 % (0-4.5); HEMATOCRIT 24.7 % (32.4-45.2); HEMOGLOBIN 8.4 GM/dL (10.7-15.3); LYMPH % 49.4 % (8-40); MCH 35.9 pg (25.7-33.7); MEAN CELL VOLUME 105.7 fl (80-96); MEAN PLT VOLUME 6.5 fl (7.5-11.1); MONO % 10.2 % (3.8-10.2); NEUT % 35.6 % (42.8-82.8); PLATELET COUNT 394 10^3/uL (134-434); RBC 2.34 M/mm3 (3.60-5.2); RDW 18.8 % (11.6-15.6); WHITE BLOOD COUNT 2.8 K/mm3 (4.0-10.0)
[2024-09-13 10:44] LABS: POTASSIUM 3.8 mmol/L (3.5-5.1)
[2024-09-13 10:47] LABS: ALBUMIN 2.6 g/dl (3.4-5.0); BLOOD UREA NITROGEN 10.2 mg/dL (7-18); CALCIUM 8.3 mg/dL (8.5-10.1)
[2024-09-13 10:51] LABS: CREATININE 0.8 mg/dL (0.55-1.3)
[2024-09-13 10:52] LABS: BILIRUBIN,TOTAL 0.9 mg/dL (0.2-1); TOT PROT 6.7 g/dl (6.4-8.2)
[2024-09-13] MEDS: ACETAMINOPHEN 1000 MG/100 ML BAG IVPB ONE (22:08)
[2024-09-14] MEDS ORDERED: LIDOCAINE HCL 1%, 10 MG/ML (20ML VIAL) ONE (10:57)
[2024-09-14] MEDS ORDERED: BUPIVACAINE HCL/PF 0.25% (2.5MG/ML) 10 ML VIAL ONE (10:58)
[2024-09-14] MEDS ORDERED: GENTAMICIN SO4 80 MG/2 ML VIAL ONE (10:58)
[2024-09-14] MEDS ORDERED: MIDAZOLAM HCL 2 MG/2 ML SINGLE DOSE VIAL ONE (11:13)
[2024-09-14] MEDS ORDERED: SCOPOLAMINE HYDROBROMIDE 1 PATCH PATCH.TD72 ONE (11:25)
[2024-09-14] MEDS ORDERED: PROPOFOL 20 ML ONE (11:40)
[2024-09-14] MEDS ORDERED: ONDANSETRON 4 MG/2 ML VIAL ONE (12:04)
[2024-09-14] MEDS ORDERED: DEXAMETHASONE SOD PHOSPHATE 4 MG/1 ML VIAL ONE (12:04)
[2024-09-14] MEDS: ONDANSETRON 4 MG/2 ML VIAL IVPUSH PRN (13:01)
[2024-09-14] MEDS ORDERED: ACETAMINOPHEN INJECTION 100 ML ONE (13:14)
[2024-09-14] MEDS: LACTATED RINGERS SOLUTION 1,000 ML IV SCH ×2 (13:14→16:31)
[2024-09-14] MEDS: ACETAMINOPHEN 1000 MG/100 ML BAG IVPB ONE ×2 (13:18→21:18)
[2024-09-14] MEDS ORDERED: morphine CARPU-JECT 2 MG/1 ML DISP.SYRIN IVPUSH PRN (14:10)
[2024-09-14] MEDS ORDERED: ONDANSETRON 4 MG/2 ML VIAL IVPUSH PRN (14:10)
[2024-09-14] MEDS ORDERED: traMADol HCL 50 MG TABLET PO PRN (14:10)
[2024-09-14] MEDS: VANCOMYCIN/WATER FOR INJ (PEG) 1,000 MG/200 ML BAG IVPB SCH (16:53)
[2024-09-14] MEDS: PIPERACILLIN/TAZOB 3.375 GM 50 ML IVPB SCH (18:12)
[2024-09-14] MEDS: ATORVASTATIN CA 40 MG TABLET (FP) PO SCH (21:19)
[2024-09-14] MEDS: GABAPENTIN 300 MG CAPSULE PO SCH (21:19)
[2024-09-14] MEDS: traMADol HCL 50 MG TABLET PO PRN (21:19)
[2024-09-14] MEDS ORDERED: GABAPENTIN 300 MG CAPSULE PO SCH ×2 (22:00)
[2024-09-14] MEDS ORDERED: SODIUM HYPOCHLORITE 0.25%- 473 ML BULK BOTTLE TP SCH (22:00)
[2024-09-15] MEDS: LEVOTHYROXINE NA 50 MCG TABLET (FP) PO SCH (06:21)
[2024-09-15 08:28] LABS: POTASSIUM 4.2 mmol/L (3.5-5.1)
[2024-09-15 08:35] LABS: ALBUMIN 2.5 g/dl (3.4-5.0); BLOOD UREA NITROGEN 14.4 mg/dL (7-18); CALCIUM 8.7 mg/dL (8.5-10.1); HEMATOCRIT 26.5 % (32.4-45.2); HEMOGLOBIN 8.7 GM/dL (10.7-15.3); MCH 35.3 pg (25.7-33.7); MCHC 32.7 g/dl (32.0-36.0); MEAN PLT VOLUME 6.8 fl (7.5-11.1); PLATELET COUNT 367 10^3/uL (134-434); RBC 2.45 M/mm3 (3.60-5.2); WHITE BLOOD COUNT 2.7 K/mm3 (4.0-10.0)
[2024-09-15 08:39] LABS: CREATININE 0.7 mg/dL (0.55-1.3)
[2024-09-15 08:40] LABS: BILIRUBIN,TOTAL 0.8 mg/dL (0.2-1); TOT PROT 6.6 g/dl (6.4-8.2)
[2024-09-15] MEDS: VALSARTAN 160 MG TABLET PO SCH (10:31)
[2024-09-15] MEDS: FUROSEMIDE 40 MG TABLET (FP) PO SCH (10:31)
[2024-09-15] MEDS: PANTOPRAZOLE 40 MG TABLET PO SCH (10:31)
[2024-09-16 11:04] LABS: HEMOGLOBIN 7.8 GM/dL (10.7-15.3); MCH 35.3 pg (25.7-33.7); MCHC 32.7 g/dl (32.0-36.0); MEAN CELL VOLUME 108.2 fl (80-96); PLATELET COUNT 383 10^3/uL (134-434); RBC 2.22 M/mm3 (3.60-5.2); RDW 19.5 % (11.6-15.6)
[2024-09-16 11:30] LABS: POTASSIUM 4.2 mmol/L (3.5-5.1)
[2024-09-16 11:33] LABS: ALBUMIN 2.6 g/dl (3.4-5.0)
[2024-09-16 11:34] LABS: BLOOD UREA NITROGEN 18.4 mg/dL (7-18)
[2024-09-16 11:36] LABS: CALCIUM 8.4 mg/dL (8.5-10.1); CREATININE 0.8 mg/dL (0.55-1.3)
[2024-09-16 11:37] LABS: BILIRUBIN,TOTAL 0.5 mg/dL (0.2-1)
[2024-09-16 11:41] LABS: TOT PROT 6.3 g/dl (6.4-8.2)
[2024-09-16] MEDS: DOXYCYCLINE HYCLATE 100 MG CAPSULE PO SCH (17:41)
[2024-09-16 21:51] VITALS: RESP 18
[2024-09-17 09:19] VITALS: BP 124/84; PULSE 110; TEMP 98.2
== END 2024-09-17 13:24 | disposition home health service (06) | DRG 264 ==
LOC: JER 11:14 → JERBED 16:08 → J8W 19:38
PROVIDERS: ADMIT Family Medicine; ATTEND Family Medicine
PROC: 0JBP0ZZ Excision of Left Lower Leg Subcutaneous Tissue and Fascia, Open Approach (ICD-10-PCS; principal; 2024-09-14 11:30)
DX: I83.023 Varicose veins of left lower extremity with ulcer of ankle (principal); L03.116 Cellulitis of left lower limb; L97.929 Non-pressure chronic ulcer of unspecified part of left lower leg with unspecified severity; E03.9 Hypothyroidism, unspecified; I10 Essential (primary) hypertension; D64.9 Anemia, unspecified; I48.91 Unspecified atrial fibrillation; E78.5 Hyperlipidemia, unspecified
CPT/HCPCS: 36415; 71045-TC-FY; 73590-TC-LT-FY; 73630-TC-LT; 80053; 85025; 85027; 85610; 85651; 85730; 86140; 86850; 86900; 86901; 87070; 87186; 87205; 87481; 94760; 97116-GP; 97161-GP; 99285-25; G0463-25; G0480; J0131; Q4100

== ENCOUNTER 2025-06-08 12:16 | Emergency (ER) | payer OTHER, MEDICARE ==
[2025-06-08 12:27] VITALS: RESP 20; TEMP 98.4; BMI 30.8
[2025-06-08 13:07] LABS: ABSOLUTE IMMATURE GRANULOCYTES 0.01 x10^3/uL (0.0-0.031); BASOPHILS # 0.01 x10^3/uL (0.01-0.08); EOSINOPHIL % 4.0 % (0.7-5.8); EOSINOPHILS # 0.13 x10^3/uL (0.04-0.36); MCHC 32.5 g/dl (32.2-35.5); MEAN CELL VOLUME 112.1 fl (79.4-94.8); MEAN PLT VOLUME 8.9 fl (9.4-12.3); MONOCYTE # 0.11 x10^3/uL (0.24-0.86); MONOCYTE % 3.4 % (4.7-12.5); RDW 19.6 % (12.5-17.0)
[2025-06-08] MEDS: SODIUM CHLORIDE 0.9% 500 ML INFUS.BAG IV ONE (13:15)
[2025-06-08 13:22] LABS: CO2 26.0 mmol/L (21-32); GLUCOSE,RANDOM 134.0 mg/dL (74-106)
[2025-06-08 13:25] LABS: CREATININE 1.2 mg/dL (0.55-1.3); SGOT/AST 18.0 U/L (15-37); SGPT/ALT 20.0 U/L (13-61)
[2025-06-08 13:27] LABS: TOT PROT 6.6 g/dl (6.4-8.2)
[2025-06-08 13:28] LABS: ALK PHOS 91.0 U/L (45-117)
[2025-06-08 14:23] LABS: HCV DIAGNOSTIC IN-HOUSE W/RFLX NON-REACTIVE (NONREACTIVE); HIV INTERPRETATION NEGATIVE (NEGATIVE)
[2025-06-08 16:38] VITALS: BP 160/67; PULSE 73
[2025-06-08 17:34] LABS: URINE APPEARANCE Clear; URINE BILIRUBIN Negative (NEGATIVE); URINE COLOR Yellow; URINE GLUCOSE (UA) Negative (NEGATIVE); URINE KETONE Negative (NEGATIVE); URINE LEUK ESTERASE Negative (NEGATIVE); URINE NITRITE Negative (NEGATIVE); URINE PROTEIN Negative (NEGATIVE); URINE UROBILINOGEN 0.2 mg/dL (0.2-1.0)
== END 2025-06-08 18:40 | disposition home or self-care (01) ==
LOC: JER 12:16
DX: R53.1 Weakness (principal); R60.0 Localized edema; L03.115 Cellulitis of right lower limb; L03.116 Cellulitis of left lower limb
CPT/HCPCS: 36415; 71045-TC-FY; 80053; 81003; 83735; 84443; 84484; 85025; 86803; 87086; 87389; 93005; 93010; 99285-25; G0463-25

== ENCOUNTER 2025-06-23 14:13 | Emergency (ER) | payer OTHER, MEDICARE ==
[2025-06-23 14:18] VITALS: BP 126/53; PULSE 65; RESP 20; TEMP 98.1; BMI 31.1
[2025-06-23 15:42] LABS: MCHC 31.6 g/dl (32.2-35.5); MEAN CELL VOLUME 115.3 fl (79.4-94.8); MEAN PLT VOLUME 8.5 fl (9.4-12.3); RDW 21.6 % (12.5-17.0)
[2025-06-23] MEDS ORDERED: CEPHALEXIN MONOHYDRATE 500 MG CAPSULE (UD) ONE (16:29)
[2025-06-23] MEDS: CEPHALEXIN MONOHYDRATE 500 MG CAPSULE (UD) PO ONE (16:30)
[2025-06-23 16:44] LABS: GLUCOSE,RANDOM 102.0 mg/dL (74-106); TOT PROT 6.6 g/dl (6.4-8.2)
[2025-06-23 16:45] LABS: CO2 23.0 mmol/L (21-32)
[2025-06-23 16:47] LABS: ALK PHOS 72.0 U/L (40-150)
[2025-06-23 16:49] LABS: SGPT/ALT 14.0 U/L (0-55)
[2025-06-23 16:50] LABS: CREATININE 1.0 mg/dL (0.55-1.3); SGOT/AST 28.0 U/L (5-34)
[2025-06-24 10:48] LABS: HIV INTERPRETATION NEGATIVE (NEGATIVE)
[2025-06-24 10:49] LABS: HCV DIAGNOSTIC IN-HOUSE W/RFLX NON-REACTIVE (NONREACTIVE)
== END 2025-06-23 18:44 | disposition home or self-care (01) ==
LOC: JER 14:13
DX: L03.115 Cellulitis of right lower limb (principal)
CPT/HCPCS: 29581-LT; 36415; 80053; 85027; 86803; 87389; 99283-25; G0463-25